=== PATIENT | female | born 1935 | race Caucasian/White ===

== ENCOUNTER 2016-06-28 15:29 | Inpatient (IN) | payer MEDICARE, MEDICAID ==
--- NOTE | 2016-06-28 16:04 | ED Physician Chart ---
Chief Complaint/HPI - Patient Information Date Seen:: 06/28/16 Time Seen:: 15:45 Chief Complaint:: redness lower legs History of Present Illness:: has had pustules on ankles and feet for one week. Lower legs became red yesterday. No chills or fever. Historian:: Patient, EMS Review:: Nurse's Note Reviewed Review of Systems - Review of Systems General/Constitutional: No fever, No chills Skin: Skin lesions Head: No headache Eyes: No loss of vision ENT: No earache Neck: No neck pain Cardio Vascular: No chest pain, No palpitations Pulmonary: No SOB GI: No nausea, No vomiting, No diarrhea Musculoskeletal: No bone or joint pain Endocrine: No polyuria, No polydipsia Psychiatric: Prior psych history Hematopoietic: No bruising Allergic/Immuno: No urticaria Neurological: No syncope Past Medical History - Past Medical History Past Medical History: Dyslipidemia, Other (hypercholesterolemia; alzheimer's disease; chest pain) Family History: Other (unavailable) Social History: Care Facility Surgical History: other (unavailable) Psychiatricy History: Dementia Medication: Reviewed Family Medical History - Family Member Mother History Unknown: Yes Labs/Radiology/EKG Results - Lab Results Comments:: Laboratory Results - last 24 hr 06/28/16 06/28/16 16:05 16:05 WBC 14.1 H RBC 4.48 Hgb 13.4 Hct 41.0 MCV 91.4 MCH 29.9 MCHC Differential 32.8 RDW 13.1 Plt Count 104 L MPV 8.1 Neutrophils % 81.9 H Lymphocytes % 11.3 L Monocytes % 5.9 Eosinophils % 0.9 Basophils % 0.0 Sodium 133 L Potassium 4.2 Chloride 103 Carbon Dioxide 21.2 Anion Gap 13.0 BUN 19 Creatinine 1.1 Est GFR ( Amer) TNP Est GFR (Non-Af Amer) TNP BUN/Creatinine Ratio 17.3 Glucose 137 H Calcium 10.0 Laboratory Results - last 24 hr 06/28/16 06/28/16 16:05 16:05 WBC 14.1 H RBC 4.48 Hgb 13.4 Hct 41.0 MCV 91.4 MCH 29.9 MCHC Differential 32.8 RDW 13.1 Plt Count 104 L MPV 8.1 Neutrophils % 81.9 H Lymphocytes % 11.3 L Monocytes % 5.9 Eosinophils % 0.9 Basophils % 0.0 Sodium 133 L Potassium 4.2 Chloride 103 Carbon Dioxide 21.2 Anion Gap 13.0 BUN 19 Creatinine 1.1 Est GFR ( Amer) TNP Est GFR (Non-Af Amer) TNP BUN/Creatinine Ratio 17.3 Glucose 137 H Calcium 10.0 ED Septic Shock - . Is Septic Shock (SBP<90, OR Lactate>4 mmol\L) present?: No Reassessment (Disposition) - Reassessment Reassessment Condition:: Unchanged - Diagnosis Diagnosis:: abscesses feet and ankles; cellulitis lower legs - Patient Disposition Admitted to:: Med/Surg Spoke to:: Sandoval Garza Admitting Medical Physician:: Sandoval Garza Condition at Disposition:: Stable, Unchanged
[2016-06-28 16:30] LABS: % EOSINOPHILS 0.9 % (0.0-5.0); % LYMPHOCYTES 11.3 % (20.0-50.0); % MONOCYTES 5.9 % (2.0-10.0); % NEUTROPHILS 81.9 % (40.0-80.0); HEMOGLOBIN 13.4 gm/dL (11.7-16.1); MEAN CELL VOLUME 91.4 fl (81-100); MEAN CORPUSCULAR HEMOGLOBIN 29.9 pg (27.0-31.0); MEAN CORPUSCULAR HGB CONC 32.8 pg (28.0-36.0); MEAN PLATELET VOLUME 8.1 fl; NEUTROPHILE ABSOLUTE 11.6 Th/cmm (1.8-8.0); PLATELET COUNT 104 Th/cmm (150-400); RED BLOOD COUNT 4.48 Mil/cmm (3.80-5.20); RED CELL DISTRIBUTION WIDTH 13.1 % (11.5-20.0); WHITE BLOOD COUNT 14.1 Th/cmm (4.8-10.8)
[2016-06-28] MEDS ORDERED: Sodium Chloride 0.9% 1,000 ML IV ONE (16:41)
[2016-06-28 16:44] LABS: BUN - UREA NITROGEN 19 mg/dL (7-25); BUN/CREATININE RATIO 17.3; CARBON DIOXIDE 21.2 mEq/L (21.0-31.0); CHLORIDE 103 mEq/L (98-107); CREATININE - SERUM 1.1 mg/dL (0.6-1.2); GLUCOSE 137 mg/dL (70-105); POTASSIUM SERUM 4.2 mEq/L (3.5-5.1); SODIUM SERUM 133 mEq/L (136-145)
[2016-06-28] MEDS ORDERED: Magnesium Hydroxide (MOM) 30 mL UDC PO PRN (23:14)
[2016-06-28] MEDS ORDERED: Guaifenesin DM 10 ML UDC PO PRN (23:14)
--- NOTE | 2016-06-28 23:36 | Admit Criteria Form ---
Admit Criteria Forms - Admit Criteria Diagnosis: CELLULITIS Clinical Indications for Admission to Inpatient Care (Place 'X' for any and all applicable criteria): Admission is indicated for ANY ONE of the following(1)(2)(3)(4)(5): [ ]I. Limb-threatening infection [ ]II. High-risk comorbid condition as indicated by ANY ONE of the following: [ ]a) Uncontrolled diabetes (eg, HbA1c greater than 10% (0.1)) [ ]b) Cirrhosis [ ]c) Neutropenia [ ]d) Asplenia [ ]e) Immunosuppression [ ]f) Symptomatic heart failure [ ]III. Failure of outpatient therapy as indicated by ALL of the following: [ ]a) Progression or no improvement after adequate trial (minimum of 48 hours, with longer period for stable lower extremity infection) [ ]b) Adequate antibiotic regimen as indicated by use of ANY ONE of the following: [ ]i) First-generation cephalosporin (e.g., cephalexin) [ ]ii) Antistaphylococcal penicillin (e.g., dicloxacillin) [ ]iii) Penicillin-allergic patient regimen (clindamycin, extended-spectrum fluoroquinolone, or doxycycline) [ ]iv) Resistant organism (eg, methicillin-resistant Staphylococcus aureus) regimen (6) [ ]c) Outpatient intravenous therapy regimen is not appropriate due to ANY ONE of the following. (7)(8)(9)(10): [ ]i) It was tried and was not successful (eg, progression of infection). [ ]ii) It is not available or cannot be arranged in a clinically appropriate time frame (e.g., the next day). [ ]iii) Clinical presentation (eg, acuity of infection, rapidity of progression, confirmed or suspected bacteremia) is judged to require ALL of the following: [ ]1) Immediate initiation of intravenous therapy ( eg, cannot wait for next day) [ ]2) Intensity of patient monitoring and observation (eg, vital sign measurement, checks for infection progression) that cannot be provided at other than inpatient level of care [ ]IV. Mental status changes [ ]V. Bacteremia [ ]. Hemodynamic instability [ ]VII. Suspected necrotizing soft tissue infection (e.g., gas in tissue)(11)( 12) [ ]VIII. Orbital infection (13)(14) [ ]IX. Associated surgical procedure (e.g., abscess drainage, debridement) not amenable to outpatient, emergency department, or observation care [ ]X. Cutaneous gangrene [ ]XI. High fever (temperature greater than 39.5 degrees C (103.1 degrees F) (oral)) not responsive to outpatient, emergency department, or observation care therapy [X]XIII. Inpatient admission required rather than observation care (Also use Cellulitis: Observation Care as appropriate) because of ANY ONE of the following : [ ]a) Periorbital or perineal infection that is severe or worsening [ ]b) Severe pain requiring acute inpatient management [ ]c) IV fluid to replace significant ongoing (e.g., for over 24 hours) losses (greater than 3L/m2 per day) [ ]d) Compartment syndrome monitoring (17) [ ]e) Strict or protective (eg, laminar flow) isolation [ ]f) Urgent debridement or skin grafting [ ]g) Bone or joint debridement [ ]h) Immediate inpatient surgery [X]i) Other condition, treatment or monitoring requiring inpatient admission Extended stay beyond goal length of stay may be needed for (1)(18): [ ]a) Necrotizing soft tissue infection or fasciitis [ ]b) Gram-negative infection [ ]c) Methicillin-resistant Staphylococcal aureus (MRSA) infection [ ]d) Peripheral venous insufficiency with cellulitis [ ]e) Extensive edema [ ]f) Sepsis or continued Hemodynamic instability [ ]g) Continued high fever or mental status change [ ]h) Bacteremia [ ]i) Active serious comorbid conditions ( eg, heart failure, renal insufficiency) The original [facility] content created by [facility] [employer] has been revised. The portions of the content which have been revised are identified through the use of italic text or in bold, and [facility] has neither reviewed nor approved the modified material. All other unmodified content is copyright [facility] Please see references footnoted in the original [facility] edition 2016 Admit Criteria Met?: Yes
[2016-06-28] MEDS: D5-0.45NS 1,000 ML IV SCH (23:40)
[2016-06-29 05:38] LABS: % BASOPHILS 0.4 % (0.0-2.0); % EOSINOPHILS 1.8 % (0.0-5.0); % LYMPHOCYTES 13.4 % (20.0-50.0); % MONOCYTES 8.5 % (2.0-10.0); % NEUTROPHILS 75.9 % (40.0-80.0); HEMOGLOBIN 12.2 gm/dL (11.7-16.1); MEAN CELL VOLUME 91.3 fl (81-100); MEAN CORPUSCULAR HEMOGLOBIN 30.9 pg (27.0-31.0); MEAN CORPUSCULAR HGB CONC 33.9 pg (28.0-36.0); MEAN PLATELET VOLUME 8.1 fl; NEUTROPHILE ABSOLUTE 7.5 Th/cmm (1.8-8.0); RED BLOOD COUNT 3.95 Mil/cmm (3.80-5.20); RED CELL DISTRIBUTION WIDTH 12.3 % (11.5-20.0)
[2016-06-29 05:52] LABS: ANION GAP 9.2 (7.0-16.0); BUN - UREA NITROGEN 12 mg/dL (7-25); CALCIUM SERUM 9.1 mg/dL (8.6-10.3); CARBON DIOXIDE 25.6 mEq/L (21.0-31.0); CHLORIDE 107 mEq/L (98-107); CREATININE - SERUM 0.8 mg/dL (0.6-1.2); GLUCOSE 149 mg/dL (70-105); POTASSIUM SERUM 3.8 mEq/L (3.5-5.1); SODIUM SERUM 138 mEq/L (136-145)
[2016-06-29 06:10] LABS: PLATELET COUNT 197 Th/cmm (150-400); WHITE BLOOD COUNT 9.8 Th/cmm (4.8-10.8)
--- NOTE | 2016-06-29 14:02 | Diagnostic Imaging Report ---
CHEST X-RAY: AP view INDICATION: Pneumonia COMPARISON: None FINDINGS: No focal consolidation or effusions. Cardiomegaly is noted with atherosclerosis. Degenerative changes of the spine are noted. IMPRESSION: No focal airspace consolidation identified Cardiomegaly and atherosclerotic vascular disease.
[2016-06-29] MEDS: Vancomycin HCl 1.5 GM in Sodium Chloride 0.9% 500 ML IV SCH (15:00)
[2016-06-29] MEDS: D5-0.45NS 1,000 ML IV SCH (15:01)
[2016-06-29] MEDS ORDERED: Influenza Vaccine 0.5 mL Syr IM ONE (15:08)
--- NOTE | 2016-06-29 16:46 | History & Physical ---
CHIEF COMPLAINT: Redness of the lower extremity. HISTORY OF PRESENT ILLNESS: The patient is an 80-year-old male with a past medical history of dyslipidemia, hypercholesterolemia, dementia, chest pain, brought in from nursing facility for multiple pustules as well as with redness of both lower extremities. Most pustules are located towards the ankle areas. Otherwise, the patient denies any fever or chills. The patient is a poor historian. PAST MEDICAL HISTORY: Includes hyperlipidemia, dyslipidemia, Alzheimer disease. FAMILY HISTORY: Noncontributory. SOCIAL HISTORY: Lives at care facility. No history of smoking, alcohol or drug use. PAST SURGICAL HISTORY: Not available. PSYCHIATRIC HISTORY: Dementia. MEDICATIONS: As per medication reconciliation sheet. Antibiotic aponte, the patient had received vancomycin 1 gram in the morning. The patient had received 1 g in the ER. ALLERGIES: THE PATIENT IS ALLERGIC TO PENICILLIN AND ASPIRIN. REVIEW OF SYSTEMS: GENERAL: The patient denies any fever or chills. HEENT: No diplopia, no photophobia, no sore throat. RESPIRATORY: No cough, no shortness of breath. CARDIOVASCULAR: No chest pain or palpitation. GASTROINTESTINAL: No nausea, no vomiting, no diarrhea, no constipation. GENITOURINARY: No dysuria. NEUROLOGIC: No headache, no dizziness, no focal weakness. Also, the patient is slow to respond. SKIN: The patient has multiple pustules in the lower extremities bilaterally, more on the ankle area with surrounding redness. PHYSICAL EXAMINATION: VITAL SIGNS: Shows temperature is 97.6 degree F, pulse 65, respirations 18, blood pressure 121/70. GENERAL: The patient is comfortable lying in the bed, not in acute distress. HEENT: Head is normocephalic, atraumatic. Oral cavity moist, pink tongue. Eyes: Pallor is present. No icterus. PERRLA, EOMI. NECK: Supple, no JVD, no carotid bruit. Trachea in midline. CHEST: Bilateral breath sounds. No crackles, wheezing. HEART: S1, S2 within normal limits. Regular rhythm. No murmur or gallop. ABDOMEN: Soft, nontender, nondistended. Bowel sounds present. EXTREMITIES: No cyanosis, no clubbing, no edema. The patient has multiple pustules on both lower extremities including foot, ankle and leg area. These had surrounding redness, worse on the ankle area. NEUROLOGIC: Alert, awake. LABORATORY DATA: Current lab shows WBC count is 9800, it was ____ yesterday, hemoglobin 12.2, hematocrit 36, platelets are 197,000, neutrophils 76%. Sodium is 138, potassium 3.8, chloride 107, bicarb is 25, BUN is 12, creatinine 0.8, and glucose is 149. IMPRESSION: 1. Bilateral leg cellulitis. 2. Leukocytosis, improved. 3. Pustules, most likely staph infection. 4. Hypertension. 5. Hyperlipidemia. RECOMMENDATIONS: We will continue vancomycin. We will get the wound culture. JOB# [id number] STONEY
[2016-06-29] MEDS ORDERED: VTE Chemical Prophylaxis Screen/Admission MC PRN (16:48)
[2016-06-29] MEDS: Atorvastatin Calcium 10 MG TAB PO SCH (21:07)
[2016-06-30] MEDS: Vancomycin HCl 1.5 GM in Sodium Chloride 0.9% 500 ML IV SCH (15:12)
[2016-06-30] MEDS: Atorvastatin Calcium 10 MG TAB PO SCH (21:36)
--- NOTE | 2016-06-30 23:19 | Infectious Disease Prog Note ---
Infectious Disease Subjective - Review of Systems Service Date: 06/30/16 Subjective: There is no new change. There is no fever. Infectious Disease Objective - Results Result Diagrams: 06/29/16 05:04 06/29/16 05:04 Recent Labs: Laboratory Last Values WBC 9.8 Th/cmm (4.8-10.8) D 06/29/16 05:04 RBC 3.95 Mil/cmm (3.80-5.20) 06/29/16 05:04 Hgb 12.2 gm/dL (11.7-16.1) 06/29/16 05:04 Hct 36.0 % (35.0-45.0) D 06/29/16 05:04 MCV 91.3 fl (81-100) 06/29/16 05:04 MCH 30.9 pg (27.0-31.0) 06/29/16 05:04 MCHC Differential 33.9 pg (28.0-36.0) 06/29/16 05:04 RDW 12.3 % (11.5-20.0) 06/29/16 05:04 Plt Count 197 Th/cmm (150-400) D 06/29/16 05:04 MPV 8.1 fl 06/29/16 05:04 Neutrophils % 75.9 % (40.0-80.0) 06/29/16 05:04 Lymphocytes % 13.4 % (20.0-50.0) L 06/29/16 05:04 Monocytes % 8.5 % (2.0-10.0) 06/29/16 05:04 Eosinophils % 1.8 % (0.0-5.0) 06/29/16 05:04 Basophils % 0.4 % (0.0-2.0) 06/29/16 05:04 Sodium 138 mEq/L (136-145) 06/29/16 05:04 Potassium 3.8 mEq/L (3.5-5.1) 06/29/16 05:04 Chloride 107 mEq/L (98-107) 06/29/16 05:04 Carbon Dioxide 25.6 mEq/L (21.0-31.0) 06/29/16 05:04 Anion Gap 9.2 (7.0-16.0) 06/29/16 05:04 BUN 12 mg/dL (7-25) 06/29/16 05:04 Creatinine 0.8 mg/dL (0.6-1.2) 06/29/16 05:04 Est GFR ( Amer) TNP 06/29/16 05:04 Est GFR (Non-Af Amer) TNP 06/29/16 05:04 BUN/Creatinine Ratio 15.0 06/29/16 05:04 Glucose 149 mg/dL (70-105) H 06/29/16 05:04 Calcium 9.1 mg/dL (8.6-10.3) 06/29/16 05:04 - Physical Exam Vitals and I&O: Vital Signs Temp 97.9 F 06/30/16 20:00 Pulse 77 06/30/16 21:35 Resp 18 06/30/16 20:00 BP 131/65 06/30/16 21:35 Pulse Ox 96 06/30/16 20:00 Intake & Output 06/30/16 06/30/16 07/01/16 06:59 18:59 06:59 Intake Total 120 600 Balance 120 600 Intake: Oral 120 600 Other: # Voids 2 2 Active Medications: Current Medications Acetaminophen (Tylenol) 650 mg PO Q4HR PRN PRN Reason: Pain (Mild) Stop: 08/27/16 23:13 Atorvastatin Calcium (Lipitor) 10 mg PO HS CHARISSA PRN Reason: Protocol Stop: 08/28/16 20:59 Last Admin: 06/30/16 21:36 Dose: 10 mg Docusate Sodium (Colace) 100 mg PO DAILY [facility]ISSA Stop: 08/28/16 08:59 Last Admin: 06/30/16 09:57 Dose: 100 mg Donepezil HCl (Aricept) 10 mg PO DAILY [facility] Stop: 08/28/16 08:59 Last Admin: 06/30/16 09:56 Dose: 10 mg Folic Acid (Folate) 1 mg PO DAILY [facility] Stop: 08/28/16 08:59 Last Admin: 06/30/16 09:57 Dose: 1 mg Guaifenesin/Dextromethorphan (Robitussin Dm) 10 ml PO Q6HR PRN PRN Reason: Cough Stop: 08/27/16 23:13 Heparin Sodium (Porcine) (Heparin) 5,000 units SUBQ Q12H [facility]ISSA Stop: 08/28/16 20:59 Last Admin: 06/30/16 21:12 Dose: 5,000 units Dextrose/Sodium Chloride (D5-0.45ns) 1,000 mls @ 75 mls/hr IV .[id number] [facility] Stop: 08/27/16 23:14 Last Admin: 06/29/16 15:01 Dose: 75 mls/hr Vancomycin HCl 1.5 gm/ Sodium (Chloride) 500 mls @ 250 mls/hr IV Q24H [facility] Stop: 08/28/16 14:59 Last Admin: 06/30/16 15:12 Dose: 250 mls/hr Isosorbide Dinitrate (Isordil) 5 mg PO TID [facility]IS[facility] Stop: 08/28/16 08:59 Last Admin: 06/30/16 21:35 Dose: 5 mg Magnesium Hydroxide (Milk Of Magnesia) 30 ml PO HS PRN PRN Reason: Constipation Stop: 08/27/16 23:13 Memantine (Namenda) 10 mg PO BID [facility] Stop: 08/28/16 08:59 Last Admin: 06/30/16 16:26 Dose: 10 mg Miscellaneous (Vancomycin Iv Per Pharmacy) 1 ea [facility] PRN [facility] Stop: 08/28/16 12:44 Miscellaneous (Vte Chemical Prophylaxis Screen/ Admission) 1 [facility] PRN PRN PRN Reason: PROTOCOL Stop: 08/28/16 16:47 Nitroglycerin (Nitrostat) 0.4 mg SL Q5MIN PRN PRN Reason: Chest Pain Stop: 08/27/16 23:13 Tramadol HCl (Ultram) 50 mg PO Q6HR PRN PRN Reason: Pain (Severe) Stop: 08/27/16 23:13 General: no acute distress, well developed, well nourished HEENT: atraumatic, normocephalic Neck: supple, thyromegaly, lymphadenopathy Cardiovascular: S1S2, regular Lungs: clear to auscultation bilaterally, clear to percussion Abdomen: soft, no tender Extremities: other (both lower leg and foot pustules. and cellulitis.), no cyanosis, no clubbing, no edema Neurological: awake, other (confusion) Infectious Disease Assmt/Plan - Assessment Assessment: cellulitis lower extremities with pustules, Staph aurues. Dementia. - Plan Plan: Will continue vanco IV. wound care. RPR, Vit B12, TSH. Psych consult.
[2016-07-01] MEDS ORDERED: Acetaminophen 500 MG TAB PO PRN (01:03)
[2016-07-01] MEDS: Vancomycin HCl 1.5 GM in Sodium Chloride 0.9% 500 ML IV SCH (15:35)
--- NOTE | 2016-07-01 18:15 | Infectious Disease Prog Note ---
Infectious Disease Subjective - Review of Systems Service Date: 07/01/16 Subjective: There is no new change. There is no fever. Infectious Disease Objective - Results Result Diagrams: 06/29/16 05:04 06/29/16 05:04 Recent Labs: Laboratory Last Values WBC 9.8 Th/cmm (4.8-10.8) D 06/29/16 05:04 RBC 3.95 Mil/cmm (3.80-5.20) 06/29/16 05:04 Hgb 12.2 gm/dL (11.7-16.1) 06/29/16 05:04 Hct 36.0 % (35.0-45.0) D 06/29/16 05:04 MCV 91.3 fl (81-100) 06/29/16 05:04 MCH 30.9 pg (27.0-31.0) 06/29/16 05:04 MCHC Differential 33.9 pg (28.0-36.0) 06/29/16 05:04 RDW 12.3 % (11.5-20.0) 06/29/16 05:04 Plt Count 197 Th/cmm (150-400) D 06/29/16 05:04 MPV 8.1 fl 06/29/16 05:04 Neutrophils % 75.9 % (40.0-80.0) 06/29/16 05:04 Lymphocytes % 13.4 % (20.0-50.0) L 06/29/16 05:04 Monocytes % 8.5 % (2.0-10.0) 06/29/16 05:04 Eosinophils % 1.8 % (0.0-5.0) 06/29/16 05:04 Basophils % 0.4 % (0.0-2.0) 06/29/16 05:04 Sodium 138 mEq/L (136-145) 06/29/16 05:04 Potassium 3.8 mEq/L (3.5-5.1) 06/29/16 05:04 Chloride 107 mEq/L (98-107) 06/29/16 05:04 Carbon Dioxide 25.6 mEq/L (21.0-31.0) 06/29/16 05:04 Anion Gap 9.2 (7.0-16.0) 06/29/16 05:04 BUN 12 mg/dL (7-25) 06/29/16 05:04 Creatinine 0.8 mg/dL (0.6-1.2) 06/29/16 05:04 Est GFR ( Amer) TNP 06/29/16 05:04 Est GFR (Non-Af Amer) TNP 06/29/16 05:04 BUN/Creatinine Ratio 15.0 06/29/16 05:04 Glucose 149 mg/dL (70-105) H 06/29/16 05:04 Calcium 9.1 mg/dL (8.6-10.3) 06/29/16 05:04 TSH 3.77 uIU/ml (0.34-5.60) 07/01/16 05:30 Vancomycin Trough 11.9 ug/mL (10-20) 07/01/16 13:54 RPR NONREACTIVE (NONREACTIVE) 07/01/16 05:30 - Physical Exam Vitals and I&O: Vital Signs Temp 98.0 F 07/01/16 16:00 Pulse 61 07/01/16 16:00 Resp 19 07/01/16 16:00 BP 135/55 07/01/16 16:00 Pulse Ox 99 07/01/16 16:00 Intake & Output 06/30/16 07/01/16 07/01/16 18:59 06:59 18:59 Intake Total 1100 1000 Balance 1100 1000 Intake: Intake, IV Amount 500 1000 D5-0.45NS 1,000 ml @ 75 1000 mls/hr IV .[id number] [facility] Rx #:[id number] Vancomycin HCl 1.5 gm In 500 Sodium Chloride 0.9% 500 ml @ 250 mls/hr IV Q24H [facility] Rx#:[id number] Oral 600 Other: # Voids 2 1 Active Medications: Current Medications Acetaminophen (Tylenol) 650 mg PO Q4HR PRN PRN Reason: Pain (Mild) Stop: 08/27/16 23:13 Acetaminophen (Tylenol Extra Strength) 1,000 mg PO Q4HR PRN PRN Reason: Pain (Moderate) Stop: 08/30/16 01:02 Atorvastatin Calcium (Lipitor) 10 mg PO HS [facility] PRN Reason: Protocol Stop: 08/28/16 20:59 Last Admin: 06/30/16 21:36 Dose: 10 mg Docusate Sodium (Colace) 100 mg PO DAILY [facility] Stop: 08/28/16 08:59 Last Admin: 07/01/16 08:15 Dose: 100 mg Donepezil HCl (Aricept) 10 mg PO DAILY [facility] Stop: 08/28/16 08:59 Last Admin: 07/01/16 08:15 Dose: 10 mg Folic Acid (Folate) 1 mg PO DAILY [facility] Stop: 08/28/16 08:59 Last Admin: 07/01/16 08:15 Dose: 1 mg Guaifenesin/Dextromethorphan (Robitussin Dm) 10 ml PO Q6HR PRN PRN Reason: Cough Stop: 08/27/16 23:13 Heparin Sodium (Porcine) (Heparin) 5,000 units SUBQ Q12H [facility] Stop: 08/28/16 20:59 Last Admin: 07/01/16 08:16 Dose: 5,000 units Dextrose/Sodium Chloride (D5-0.45ns) 1,000 mls @ 75 mls/hr IV .[id number] [facility] Stop: 08/27/16 23:14 Last Infusion: 07/01/16 01:35 Dose: Infused Vancomycin HCl 1.5 gm/ Sodium (Chloride) 500 mls @ 250 mls/hr IV Q24H [facility] Stop: 08/28/16 14:59 Last Admin: 07/01/16 15:35 Dose: 250 mls/hr Isosorbide Dinitrate (Isordil) 5 mg PO TID [facility] Stop: 08/28/16 08:59 Last Admin: 07/01/16 14:04 Dose: 5 mg Magnesium Hydroxide (Milk Of Magnesia) 30 ml PO HS PRN PRN Reason: Constipation Stop: 08/27/16 23:13 Memantine (Namenda) 10 mg PO BID [facility] Stop: 08/28/16 08:59 Last Admin: 07/01/16 16:12 Dose: 10 mg Miscellaneous (Vancomycin Iv Per Pharmacy) 1 ea [facility] PRN [facility] Stop: 08/28/16 12:44 Miscellaneous (Vte Chemical Prophylaxis Screen/ Admission) 1 ea [facility] PRN PRN PRN Reason: PROTOCOL Stop: 08/28/16 16:47 Nitroglycerin (Nitrostat) 0.4 mg SL Q5MIN PRN PRN Reason: Chest Pain Stop: 08/27/16 23:13 Tramadol HCl (Ultram) 50 mg PO Q6HR PRN PRN Reason: Pain (Severe) Stop: 08/27/16 23:13 General: no acute distress, well developed, well nourished HEENT: atraumatic, normocephalic, PERRLA, EOMI Neck: supple, no thyromegaly Cardiovascular: S1S2, regular Lungs: clear to auscultation bilaterally, clear to percussion Abdomen: soft, no tender, no distended Extremities: other (b/l lower extremity pustules.), no cyanosis, no clubbing, no edema Neurological: awake, alert, other (Confused.) Skin: intact Infectious Disease Assmt/Plan - Assessment Assessment: cellulitis lower extremities with pustules, Staph aurues. Dementia. - Plan Plan: Will continue vanco IV. wound care. RPR, Vit B12, TSH. Psych consult. DC planning op levaquin for 10 days.
[2016-07-01] MEDS: Atorvastatin Calcium 10 MG TAB PO SCH (21:40)
[2016-07-02] MEDS: D5-0.45NS 1,000 ML IV SCH (01:53)
[2016-07-02] MEDS: Vancomycin HCl 1.5 GM in Sodium Chloride 0.9% 500 ML IV SCH (16:29)
--- NOTE | 2016-07-02 20:56 | Progress Notes ---
SUBJECTIVE: The patient was seen in the bed lying down. The patient is a poor historian. No signs or symptoms of distress. OBJECTIVE: HEENT: Head is atraumatic, normocephalic. Eyes: Bilateral conjunctivae are clear for injections. NECK: Supple. No JVD. CARDIOVASCULAR: S1 and S2 heard without murmur. PULMONARY: Clear to auscultation. GASTROINTESTINAL: Soft and nontender without guarding. MUSCULOSKELETAL: No edema noted, but redness on both lower extremities, especially on the ankle side. ASSESSMENT: 1. Cellulitis of the bilateral lower extremities. 2. Dementia. 3. Hypertension. 4. Hyperlipidemia. 5. Osteoarthritis. PLAN: We will keep the patient here in the Med-Surg Floor. We will continue IV antibiotics per ID doctor. JOB# [id number]
--- NOTE | 2016-07-02 22:15 | Consultation ---
IDENTIFYING INFORMATION: The patient is an 80-year-old female. HISTORY OF PRESENT ILLNESS: The patient was admitted because of multiple sores. She is diabetic. The patient was a poor historian. She is confused. She was diagnosed with dementia. She apparently have infection, hyperlipidemia and pain. The patient was a very poor historian, but she was in good mood, was laughing. The nursing taking care of her, told me in the morning, she told does not feel like eating, but then she ate all her food. When asked about the date, her age, unable to tell, unable to give any information. The patient came from a nursing facility from ____. 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 PAST PSYCHIATRIC HISTORY: Dementia. No other information is available. MEDICAL HISTORY: Deferred to the medical doctor. The patient has ____, cellulitis of both of her legs. FAMILY AND SOCIAL HISTORY: Unobtainable, the patient lives in a nursing facility. MENTAL STATUS EXAMINATION: The patient is appropriately dressed, appropriately groomed. She was laughing. I am not sure why she was laughing. She speaks Greek and has a rn triage. The patient has been very confused, inappropriate, unable to test her memory. She has poor orientation and poor concentration. She denies any auditory or visual hallucinations. Denies any suicidal ideation or homicidal ideation, not causing any management problems. Her insight and judgment is impaired because of dementia. IMPRESSION: AXIS I: Dementia with probable delirium secondary to her medication conditions, cellulitis. MEDICAL DIAGNOSIS: Cellulitis and hyperlipidemia. PLAN: I would recommend continue the Aricept. If she is still having ____ problem, let me know. I am covering for Dr. Gaytan. Dr. Gaytan will follow up with her. Thank you very much for allowing me to participate in the care of this most interesting lady. [facility]# [id number]
--- NOTE | 2016-07-03 10:46 | Diagnostic Imaging Report ---
Bilateral lower extremity DVT study HISTORY: Pain, vascular disease COMPARISON: None Technique: Longitudinal and transverse sonographic images of the bilateral lower extremity veins were obtained with doppler analysis. FINDINGS: There is normal compressibility, augmentation and phasicity of the bilateral common femoral, superficial femoral, popliteal, and posterior tibial veins. No thrombus is visualized. IMPRESSION: No evidence of thrombus within the bilateral lower extremity veins.
--- NOTE | 2016-07-03 10:56 | Diagnostic Imaging Report ---
Bilateral lower extremity arterial Doppler study HISTORY: Peripheral vascular disease COMPARISON: None Technique: Longitudinal and transverse sonographic images of the bilateral lower extremity arteries were obtained with doppler analysis. FINDINGS: Exam of the right side demonstrates mild to moderate atherosclerotic vascular disease with biphasic waveforms extending from the right superficial femoral artery to the dorsalis pedis artery. Exam of the left side demonstrates mild to moderate atherosclerotic vascular disease with primarily biphasic waveforms from the left common femoral artery to the dorsalis pedis artery. No sonographic evidence of occlusion. The right ankle-brachial index is 1.08 The left ankle brachial index is 1.01 IMPRESSION: [id number] atherosclerotic vascular disease. No evidence of significant focal stenosis or sonographic evidence of occlusion.
--- NOTE | 2016-07-03 23:21 | Discharge Summary ---
CHIEF COMPLAINT: Redness of lower extremities. HISTORY OF PRESENT ILLNESS AND HOSPITAL COURSE: The patient is an 80-year-old female with past medical history of dyslipidemia, hypercholesterolemia, dementia and chest discomfort, admitted to the hospital on 06/28/2016 with lower extremity redness. Bilaterally, there were multiple pustules. The patient was started on vancomycin and culture of the pus grew MSSA, susceptible to Levaquin. Antibiotic was changed to Levaquin. As the patient was confused, so will get psychiatric evaluation. The patient was ultimately transferred to Geropsych Unit. Otherwise, the patient is stable on the discharge. DISCHARGE DIAGNOSES: 1. Bilateral lower leg cellulitis, pustules. 2. Confusion. 3. Dyslipidemia. 4. Hypertension. RECOMMENDATIONS: We will continue same treatment. DISCHARGE CONDITION: Stable. DISCHARGE DISPOSITION: Geropsych Unit. JOB# [id number] MTDD
== END 2016-07-02 18:20 | DRG 871 ==
LOC: ER 15:29 → MSI 18:19
PROVIDERS: ADMIT Internal Medicine Infectious Disease; ATTEND Internal Medicine Infectious Disease
DX: A41.9 Sepsis, unspecified organism (principal); G93.41 Metabolic encephalopathy; L02.611 Cutaneous abscess of right foot; G30.9 Alzheimer's disease, unspecified; L02.415 Cutaneous abscess of right lower limb; F02.80 Dementia in other diseases classified elsewhere, unspecified severity, without behavioral disturbance, psychotic disturbance, mood disturbance, and anxiety; L03.116 Cellulitis of left lower limb; L02.612 Cutaneous abscess of left foot; L03.115 Cellulitis of right lower limb; L02.416 Cutaneous abscess of left lower limb; B95.61 Methicillin susceptible Staphylococcus aureus infection as the cause of diseases classified elsewhere; I10 Essential (primary) hypertension; E78.5 Hyperlipidemia, unspecified; E78.00 Pure hypercholesterolemia, unspecified; M19.90 Unspecified osteoarthritis, unspecified site; Z88.0 Allergy status to penicillin; Z88.6 Allergy status to analgesic agent
CPT/HCPCS: 36415-UA; 71010-TC; 80048-TC; 80202-TC; 82607-90; 84443-TC; 85025-TC; 86592-TC; 87070-90; 93925-TC; 93970-TC-50; J1644; J3370; J7030; J7040; Z7610

== ENCOUNTER 2016-07-02 18:33 | Inpatient (IN) | payer MEDICARE, MEDICAID ==
[2016-07-02] MEDS ORDERED: Magnesium Hydroxide (MOM) 30 mL UDC PO PRN (19:56)
[2016-07-02] MEDS ORDERED: Maalox 30 mL Cup PO PRN (19:56)
[2016-07-02] MEDS ORDERED: Guaifenesin DM 10 ML UDC PO PRN (20:13)
[2016-07-02] MEDS: Atorvastatin Calcium 10 MG TAB PO SCH (21:36)
[2016-07-03 01:58] VITALS: BP 108/75
[2016-07-03] MEDS: Multivitamin Tab PO SCH (09:39)
--- NOTE | 2016-07-03 16:36 | Psychosocial Evaluation ---
IDENTIFYING INFORMATION: The patient is an 80-year-old female. CHIEF COMPLAINT: No answer. HISTORY OF PRESENT ILLNESS: The patient was transferred from medical floor as ordered. She has been very confused, demented. She has been easily agitated. She was unable to give any information and give information and then contradicted. Unable to make safe plan for self-care. She is a very poor historian. We spoke through a mattress inspector. PAST PSYCHIATRIC HISTORY: Dementia. MEDICAL HISTORY: The patient has hypercholesterolemia and cellulitis. The patient also have coronary artery disease and pain. MEDICATIONS: The patient is on tramadol. She is on Aricept 10 mg at bedtime and Namenda 10 mg twice a day. FAMILY AND SOCIAL HISTORY: Unobtainable. The patient is a very poor historian, unable to give information about her family and she came from [facility]. MENTAL STATUS EXAMINATION: The patient was appropriately dressed, not very well groomed. Her mood is depressed. Affect is constricted. Thoughts are concrete, does not make sense, very confused, unable to tell me the date, where she is, why she is here, unable to answer questions, acting agitated at times, unable to tell me the date, her age, where she is, why she is here. Her long and short term memory is poor. Her insight and judgment is impaired. IMPRESSION: AXIS I: Dementia with depression. MEDICAL DIAGNOSIS: Deferred to the medical doctor. Her assets, she is accepting treatment. Negative poor coping skills. INITIAL TREATMENT PLAN: The patient will be continued with her medication. I will be adding Remeron small dose to help with her anxiety, depression, agitation. We will do group therapy, milieu therapy, individual therapy. ESTIMATED LENGTH OF STAY: 3-7 days. DISCHARGE CRITERIA: Decreasing confusion, depression after discharge outpatient. JOB# [id number]
[2016-07-03] MEDS: Atorvastatin Calcium 10 MG TAB PO SCH (21:19)
[2016-07-04] MEDS: Multivitamin Tab PO SCH (09:17)
--- NOTE | 2016-07-04 11:18 | Infectious Disease Prog Note ---
Infectious Disease Subjective - Review of Systems Service Date: 07/04/16 Subjective: There is no new change, there is no fever. Infectious Disease Objective - Physical Exam Vitals and I&O: Vital Signs Temp 98.4 F 07/04/16 06:45 Pulse 60 07/04/16 09:19 Resp 20 07/04/16 11:02 BP 136/57 07/04/16 09:19 Pulse Ox 98 07/04/16 06:45 Intake & Output 07/03/16 07/04/16 07/04/16 18:59 06:59 18:59 Intake Total 1300 240 Balance 1300 240 Intake: Oral 1300 240 Other: # Voids 4 1 # Bowel Movements 1 0 Active Medications: Current Medications Acetaminophen (Tylenol) 650 mg PO Q4HR PRN PRN Reason: Pain Stop: 08/31/16 19:55 Al Hydrox/Mg Hydrox/Simethicone (Maalox) 30 ml PO Q4HR PRN PRN Reason: GI DISTRESS Stop: 08/31/16 19:55 Atorvastatin Calcium (Lipitor) 10 mg PO HS CHARISSA PRN Reason: Protocol Stop: 08/31/16 20:59 Last Admin: 07/03/16 21:19 Dose: 10 mg Docusate Sodium (Colace) 100 mg PO DAILY CHARISSA Stop: 09/01/16 08:59 Last Admin: 07/04/16 09:17 Dose: 100 mg Donepezil HCl (Aricept) 10 mg PO DAILY CHARISSA Stop: 09/01/16 08:59 Last Admin: 07/04/16 09:17 Dose: 10 mg Folic Acid (Folate) 1 mg PO DAILY CHARISSA Stop: 09/01/16 08:59 Last Admin: 07/04/16 09:17 Dose: 1 mg Guaifenesin/Dextromethorphan (Robitussin Dm) 10 ml PO Q6HR PRN PRN Reason: Cough Stop: 08/31/16 20:12 Isosorbide Dinitrate (Isordil) 5 mg PO TID CHARISSA Stop: 08/31/16 20:59 Last Admin: 07/04/16 09:19 Dose: 5 mg Levofloxacin (Levaquin) 250 mg PO DAILY CHARISSA Stop: 07/12/16 08:59 Last Admin: 07/04/16 09:17 Dose: 250 mg Lorazepam (Ativan) 0.5 mg PO Q4HR PRN; Protocol PRN Reason: Anxiety Stop: 08/01/16 19:55 Memantine (Namenda) 10 mg PO BID CHARISSA Stop: 09/01/16 08:59 Last Admin: 07/04/16 09:17 Dose: 10 mg Mirtazapine (Remeron) 7.5 mg PO HS CHARISSA PRN Reason: Protocol Stop: 09/01/16 20:59 Last Admin: 07/03/16 21:19 Dose: 7.5 mg Multivitamins/Vitamin C (Theragran) 1 tab PO DAILY CHARISSA Stop: 09/01/16 08:59 Last Admin: 07/04/16 09:17 Dose: 1 tab Nitroglycerin (Nitrostat) 0.4 mg SL Q5MIN PRN PRN Reason: Chest Pain Stop: 08/31/16 20:16 Tramadol HCl (Ultram) 50 mg PO Q6HR PRN PRN Reason: Severe Pain Stop: 08/31/16 20:17 Zolpidem Tartrate (Ambien) 5 mg PO HS PRN PRN Reason: Insomnia Stop: 08/31/16 19:55 General: no acute distress, well developed, well nourished HEENT: atraumatic, normocephalic, PERRLA, EOMI Neck: supple, no thyromegaly, no lymphadenopathy Cardiovascular: S1S2, regular, no irregular Lungs: clear to auscultation bilaterally, clear to percussion Abdomen: soft, no tender, no distended Extremities: no cyanosis, no clubbing, no edema Neurological: awake, alert, oriented, CN 2-12 intact Skin: intact Infectious Disease Assmt/Plan - Assessment Assessment: IMopression: Confusion. Cellulitis of legs improving, Dementia. - Plan Plan: CPM.
[2016-07-04] MEDS: Atorvastatin Calcium 10 MG TAB PO SCH (20:41)
--- NOTE | 2016-07-05 01:16 | Progress Notes ---
SUBJECTIVE: Chart reviewed and the patient interviewed. Also discussed the patient's condition with the staff and reviewed records and labs. The patient is still easily agitated and she is still confused. The patient also is still forgetful and has difficulty following any directions. She also is still in angry mood. She also is aggressive with the staff when they try to help her with her ADLs. Otherwise, the patient is compliant with taking her medications with no side effects of medications. ASSESSMENT: The patient is still psychotic and still can be dangerous to others. TREATMENT PLAN: Continue to monitor her behavior and her medications and her condition closely. Also, continue to work on her poor impulse control and adjusting psychotropic medications. JOB# [id number]
[2016-07-05] MEDS: Multivitamin Tab PO SCH (08:52)
--- NOTE | 2016-07-05 14:08 | History & Physical ---
HISTORY OF PRESENT ILLNESS: The patient was transferred from the medical floor. She was admitted from senior care facility through the ER with a chief complaint of cellulitis and then the patient was moved to Psych Unit due to severe dementia. The patient is unable to take care of herself and make any decision for herself. PAST MEDICAL HISTORY: Includes dementia, osteoarthritis, CAD, hyperlipidemia and cellulitis. FAMILY HISTORY: Unremarkable. SOCIAL HISTORY: Unremarkable. SURGICAL HISTORY: Unremarkable. PSYCHIATRIC HISTORY: The patient currently has dementia. REVIEW OF SYSTEMS: GENERAL: The patient appears symptomatic. HEENT: Head: No headache. Eyes: No eye pain. NECK: No neck pain. CARDIOVASCULAR: No chest pain, no palpitation. PULMONARY: No shortness of breath. GASTROINTESTINAL: No abdominal pain, no constipation, no diarrhea. GENITOURINARY: No dysuria. MUSCULOSKELETAL: Bilateral lower extremity redness with minimal edema, but no pitting. PHYSICAL EXAMINATION: GENERAL: The patient in no acute distress. HEENT: Head is atraumatic, normocephalic. Eyes: Bilateral pupils are equally round and reactive. Bilateral conjunctivae are clear from injections. NECK: Supple. No JVD. CARDIOVASCULAR: S1 and S2 heard without murmur. CHEST: Clear to auscultation. GASTROINTESTINAL: Soft and nontender. Positive bowel sounds. No guarding. GENITOURINARY: No CVA tenderness. MUSCULOSKELETAL: Bilateral lower extremity edema, but no pitting. Bilateral lower extremity weakness as well. NEUROLOGIC: The patient is demented and a poor historian. ASSESSMENT: 1. Dementia. 2. Depression. 3. Hyperlipidemia. 4. Cellulitis. 5. Coronary artery disease. 6. Osteoarthritis. 7. Insomnia. PLAN: We will keep the patient inpatient in the psych unit. We will follow up with a psychiatrist to manage the patient's behavior. Also, we will follow up with ID doctor to continue antibiotic management. [facility]# [id number]
[2016-07-05] MEDS: Atorvastatin Calcium 10 MG TAB PO SCH (20:48)
--- NOTE | 2016-07-06 04:45 | Progress Notes ---
SUBJECTIVE: Chart was reviewed and the patient interviewed. Also discussed the patient's condition with the staff and reviewed records and labs. The patient is still having episodes of anger and agitation and irritability. The patient also is still in angry mood and she is still actively responding to the stimuli. She also still has problems expressing herself and her feelings because of her confusion and her forgetfulness. ASSESSMENT: The patient is still psychotic and considered to be ____. TREATMENT PLAN: We will continue monitoring her behavior and her condition closely. Also, we will continue working on her mood swings and her agitation. Also, we will increase Remeron to ____ mg everyday and we will continue to follow up closely. [facility]# [id number]
[2016-07-06] MEDS: Multivitamin Tab PO SCH (08:08)
[2016-07-06] MEDS: Docusate Sodium 100 mg/10 mL UD PO SCH (08:08)
--- NOTE | 2016-07-06 09:13 | Progress Notes ---
SUBJECTIVE: Chart reviewed and the patient interviewed. Also discussed the patient's condition with the staff and reviewed records and labs. The patient is still severely agitated and is still in angry and in irritable mood. The patient also is still restless and she still has difficulty following directions. The patient also is still feeling irritable and angry at times. Otherwise, the patient is not interacting with others and she still needs lots of redirections. ASSESSMENT: The patient is still agitated and is still confused and psychotic. TREATMENT PLAN: We will continue monitoring her behavior and her condition closely. Also, continue to work on her poor impulse control. Remeron was increased yesterday to ____ mg every day with no side effects and we will continue same dose and continue to follow up. Also, encouraged the patient to get out of her isolation and interact more with others. JOB# [id number]
[2016-07-06] MEDS: Atorvastatin Calcium 10 MG TAB PO SCH (20:31)
--- NOTE | 2016-07-06 23:38 | Infectious Disease Prog Note ---
Infectious Disease Subjective - Review of Systems Service Date: 07/06/16 Subjective: There is no new change, there is no fever. Infectious Disease Objective - Physical Exam Vitals and I&O: Vital Signs Temp 97.6 F 07/06/16 14:00 Pulse 64 07/06/16 20:29 Resp 18 07/06/16 20:00 BP 128/67 07/06/16 20:29 Pulse Ox 96 07/06/16 14:00 Intake & Output 07/06/16 07/06/16 07/07/16 06:59 18:59 06:59 Intake Total 120 700 Balance 120 700 Weight (lbs) 80.649 kg Intake: Oral 120 700 Other: # Voids 3 3 # Bowel Movements 0 Active Medications: Current Medications Acetaminophen (Tylenol) 650 mg PO Q4HR PRN PRN Reason: Pain Stop: 08/31/16 19:55 Al Hydrox/Mg Hydrox/Simethicone (Maalox) 30 ml PO Q4HR PRN PRN Reason: GI DISTRESS Stop: 08/31/16 19:55 Atorvastatin Calcium (Lipitor) 10 mg PO HS CHARISSA PRN Reason: Protocol Stop: 08/31/16 20:59 Last Admin: 07/06/16 20:31 Dose: 10 mg Docusate Sodium (Colace) 100 mg PO DAILY CHARISSA Stop: 09/04/16 08:59 Last Admin: 07/06/16 08:08 Dose: 100 mg Donepezil HCl (Aricept) 10 mg PO DAILY CHARISSA Stop: 09/01/16 08:59 Last Admin: 07/06/16 08:10 Dose: 10 mg Folic Acid (Folate) 1 mg PO DAILY CHARISSA Stop: 09/01/16 08:59 Last Admin: 07/06/16 08:09 Dose: 1 mg Guaifenesin/Dextromethorphan (Robitussin Dm) 10 ml PO Q6HR PRN PRN Reason: Cough Stop: 08/31/16 20:12 Isosorbide Dinitrate (Isordil) 5 mg PO TID CHARISSA Stop: 08/31/16 20:59 Last Admin: 07/06/16 20:29 Dose: 5 mg Levofloxacin (Levaquin) 250 mg PO DAILY CHARISSA Stop: 07/12/16 08:59 Last Admin: 07/06/16 08:08 Dose: 250 mg Lorazepam (Ativan) 0.5 mg PO Q4HR PRN; Protocol PRN Reason: Anxiety Stop: 08/01/16 19:55 Memantine (Namenda) 10 mg PO BID CHARISSA Stop: 09/01/16 08:59 Last Admin: 07/06/16 16:22 Dose: 10 mg Mirtazapine (Remeron) 15 mg PO HS CHARISSA PRN Reason: Protocol Stop: 09/03/16 12:31 Last Admin: 07/06/16 20:31 Dose: 15 mg Multivitamins/Vitamin C (Theragran) 1 tab PO DAILY CHARISSA Stop: 09/01/16 08:59 Last Admin: 07/06/16 08:08 Dose: 1 tab Nitroglycerin (Nitrostat) 0.4 mg SL Q5MIN PRN PRN Reason: Chest Pain Stop: 08/31/16 20:16 Tramadol HCl (Ultram) 50 mg PO Q6HR PRN PRN Reason: Severe Pain Stop: 08/31/16 20:17 Zolpidem Tartrate (Ambien) 5 mg PO HS PRN PRN Reason: Insomnia Stop: 08/31/16 19:55 General: no acute distress, well developed, well nourished HEENT: atraumatic, normocephalic, PERRLA, EOMI Neck: supple, no thyromegaly, no lymphadenopathy Cardiovascular: S1S2, regular Lungs: clear to auscultation bilaterally, clear to percussion Abdomen: soft, no tender, no distended, no mass Extremities: other (redness better in legs), no cyanosis, no clubbing, no edema Neurological: awake, alert, oriented, CN 2-12 intact Skin: intact Infectious Disease Assmt/Plan - Assessment Assessment: IMopression: Confusion. Cellulitis of legs improving, Dementia. - Plan Plan: CPM. Nutritional Asmnt/Malnutr-PDOC - Dietary Evaluation Malnutrition Findings (Please click <Entered> for more info): Nutritional Asmnt/Malnutrition Start: 07/06/16 16: 49 Text: Status: Complete Freq: Document 07/06/16 16:49 GSUN (Rec: 07/06/16 17:06 [email or web address] [id number]) Nutritional Asmnt/Malnutrition Patient General Information Nutritional Screening Moderate Risk Screening Diagnosis Severe dementia Pertinent Medical Hx/Surgical Hx Dementia, osteoarthritis, CAD, hyperlipidemia, cellulitis Subjective Information 63 year old female from SNF. visit pt during meal time. Observed pt sitting upright in bed, self-feeding with great hands and utensils coordinations, no difficulties chewing/swallowing, teeth present. Pt was confused, did not answer any RD questions, smiled at RD several times then resumed eating. Avg PO intake 89% of meals x past 3 days, meeting nutritional needs. Current Diet Order/ Nutrition Support Mech chopped, ORTIZ, CCHO Pertinent Medications Maalox, Lipitor, Colace, Folate, Theragran Pertinent Labs No current labs Nutritional Hx/Data Height 1.47 m Height (Calculated Centimeters) 147.3 Current Weight (lbs) 80.649 kg Weight (Calculated Kilograms) 80.6 Weight (Calculated Grams) 40892.7 [place] Body Weight 95lb (-2.5lb per in) Weight Status Obese GI Symptoms Cultural/Ethnic/Latter-Day Belief Unknown. Usual diet at home Unknown. Skin Integrity/Comment: Andi 16. Skin intact, some abrasions and bruises Estimated Nutritional Goals BEE in Kcals: Adj wt of IBW Calories/Kcals/Kg AdjBW 115.7lb/52.6kg, 25- 30kcal/kg Kcals Calculated 1315-1578kcal Protein: Adj wt of IBW Protein g/kg/kg Protein Calculated 53g Fluid: ml 1315-1578ml (1ml/kcal) Nutritional Problem 1. Problem Problem Overweight/obseity related to Etiology imabalance of energy utilization, physical inactivity Signs/Symptoms: BMI 37.2, PO intake >100% estimated needs aeb Intervention/Recommendation Comments 1. Continue with current diet. Avg PO intake meeting nutritional needs. Expected Outcomes/Goals Expected Outcomes/Goals 1. PO intake continue to meet at least 75% of estimated nutritional needs.
[2016-07-07] MEDS: Docusate Sodium 100 mg/10 mL UD PO SCH (09:24)
[2016-07-07] MEDS: Multivitamin Tab PO SCH (09:24)
--- NOTE | 2016-07-07 20:09 | Progress Notes ---
SUBJECTIVE: The patient seen, chart reviewed, discussed with staff. The patient is currently in the hospital, confused, demented, here due to agitation, poor self-care, resistant to care. On [id number], the patient is alert and oriented to name only, confused. She does not know where she is. She does not know why she is here. She does not know the year, the month and the date. Still concerns about her agitation, still disorganized, concerns about safety, concerns about any lashing out behaviors. Dr. Gaytan has been seeing the patient daily, making appropriate medication adjustments. She is still noted to be angry, irritable. ASSESSMENT: The patient remains agitated, angry, irritable, confused, disoriented. PLAN: Continue to monitor, continue to adjust medications, work on coping and impulse control. JOB# [id number]
[2016-07-07] MEDS: Atorvastatin Calcium 10 MG TAB PO SCH (20:51)
--- NOTE | 2016-07-07 23:22 | Infectious Disease Prog Note ---
Infectious Disease Subjective - Review of Systems Service Date: 07/07/16 Subjective: There is no new change, there is no fever. Infectious Disease Objective - Physical Exam Vitals and I&O: Vital Signs Temp 97.8 F 07/07/16 14:00 Pulse 66 07/07/16 20:52 Resp 18 07/07/16 20:00 BP 131/65 07/07/16 20:52 Pulse Ox 96 07/07/16 14:00 Intake & Output 07/07/16 07/07/16 07/08/16 06:59 18:59 06:59 Intake Total 700 Balance 700 Intake: Oral 700 Other: # Voids 3 # Bowel Movements 1 Active Medications: Current Medications Acetaminophen (Tylenol) 650 mg PO Q4HR PRN PRN Reason: Pain Stop: 08/31/16 19:55 Al Hydrox/Mg Hydrox/Simethicone (Maalox) 30 ml PO Q4HR PRN PRN Reason: GI DISTRESS Stop: 08/31/16 19:55 Atorvastatin Calcium (Lipitor) 10 mg PO HS CHARISSA PRN Reason: Protocol Stop: 08/31/16 20:59 Last Admin: 07/07/16 20:51 Dose: 10 mg Docusate Sodium (Colace) 100 mg PO DAILY CHARISSA Stop: 09/04/16 08:59 Last Admin: 07/07/16 09:24 Dose: 100 mg Donepezil HCl (Aricept) 10 mg PO DAILY CHARISSA Stop: 09/01/16 08:59 Last Admin: 07/07/16 09:24 Dose: 10 mg Folic Acid (Folate) 1 mg PO DAILY CHARISSA Stop: 09/01/16 08:59 Last Admin: 07/07/16 09:24 Dose: 1 mg Guaifenesin/Dextromethorphan (Robitussin Dm) 10 ml PO Q6HR PRN PRN Reason: Cough Stop: 08/31/16 20:12 Isosorbide Dinitrate (Isordil) 5 mg PO TID CHARISSA Stop: 08/31/16 20:59 Last Admin: 07/07/16 20:52 Dose: 5 mg Levofloxacin (Levaquin) 250 mg PO DAILY CHARISSA Stop: 07/12/16 08:59 Last Admin: 07/07/16 09:24 Dose: 250 mg Lorazepam (Ativan) 0.5 mg PO Q4HR PRN; Protocol PRN Reason: Anxiety Stop: 08/01/16 19:55 Memantine (Namenda) 10 mg PO BID CHARISSA Stop: 09/01/16 08:59 Last Admin: 07/07/16 17:01 Dose: 10 mg Mirtazapine (Remeron) 15 mg PO HS CHARISSA PRN Reason: Protocol Stop: 09/03/16 12:31 Last Admin: 07/07/16 20:51 Dose: 15 mg Multivitamins/Vitamin C (Theragran) 1 tab PO DAILY CHARISSA Stop: 09/01/16 08:59 Last Admin: 07/07/16 09:24 Dose: 1 tab Nitroglycerin (Nitrostat) 0.4 mg SL Q5MIN PRN PRN Reason: Chest Pain Stop: 08/31/16 20:16 Tramadol HCl (Ultram) 50 mg PO Q6HR PRN PRN Reason: Severe Pain Stop: 08/31/16 20:17 Zolpidem Tartrate (Ambien) 5 mg PO HS PRN PRN Reason: Insomnia Stop: 08/31/16 19:55 General: no acute distress, well developed, well nourished HEENT: atraumatic, PERRLA Neck: supple Cardiovascular: S1S2, regular Lungs: clear to auscultation bilaterally, clear to percussion Abdomen: soft, no tender, no distended Extremities: no cyanosis, no clubbing, no edema Neurological: awake, alert, oriented, CN 2-12 intact Skin: intact Infectious Disease Assmt/Plan - Assessment Assessment: IMopression: Confusion. Cellulitis of legs improving, Dementia. - Plan Plan: CPM. Nutritional Asmnt/Malnutr-PDOC - Dietary Evaluation Malnutrition Findings (Please click <Entered> for more info): Nutritional Asmnt/Malnutrition Start: 07/06/16 16: 49 Text: Status: Complete Freq: Document 07/06/16 16:49 GSUN (Rec: 07/06/16 17:06 [email or web address]) Nutritional Asmnt/Malnutrition Patient General Information Nutritional Screening Moderate Risk Screening Diagnosis Severe dementia Pertinent Medical Hx/Surgical Hx Dementia, osteoarthritis, CAD, hyperlipidemia, cellulitis Subjective Information 63 year old female from SNF. visit pt during meal time. Observed pt sitting upright in bed, self-feeding with great hands and utensils coordinations, no difficulties chewing/swallowing, teeth present. Pt was confused, did not answer any RD questions, smiled at RD several times then resumed eating. Avg PO intake 89% of meals x past 3 days, meeting nutritional needs. Current Diet Order/ Nutrition Support [facility] chopped, ORTIZ, CCHO Pertinent Medications Maalox, Lipitor, Colace, Folate, Theragran Pertinent Labs No current labs Nutritional Hx/Data Height 1.47 m Height (Calculated Centimeters) 147.3 Current Weight (lbs) 80.649 kg Weight (Calculated Kilograms) 80.6 Weight (Calculated Grams) 99683.7 [place] Body Weight 95lb (-2.5lb per in) Weight Status Obese GI Symptoms Cultural/Ethnic/Yarsanism Belief Unknown. Usual diet at home Unknown. Skin Integrity/Comment: Andi 16. Skin intact, some abrasions and bruises Estimated Nutritional Goals BEE in Kcals: Adj wt of IBW Calories/Kcals/Kg AdjBW 115.7lb/52.6kg, 25- 30kcal/kg Kcals Calculated 1315-1578kcal Protein: Adj wt of IBW Protein g/kg/kg Protein Calculated 53g Fluid: ml 1315-1578ml (1ml/kcal) Nutritional Problem 1. Problem Problem Overweight/obseity related to Etiology imabalance of energy utilization, physical inactivity Signs/Symptoms: BMI 37.2, PO intake >100% estimated needs aeb Intervention/Recommendation Comments 1. Continue with current diet. Avg PO intake meeting nutritional needs. Expected Outcomes/Goals Expected Outcomes/Goals 1. PO intake continue to meet at least 75% of estimated nutritional needs.
[2016-07-08] MEDS: Docusate Sodium 100 mg/10 mL UD PO SCH (08:40)
[2016-07-08] MEDS: Multivitamin Tab PO SCH (08:41)
--- NOTE | 2016-07-08 11:38 | General Progress Note ---
Objective - Physical Exam Vitals and I&O: Vital Signs Temp 97.8 F 07/07/16 14:00 Pulse 87 07/08/16 08:40 Resp 18 07/07/16 20:00 BP 135/72 07/08/16 08:40 Pulse Ox 96 07/07/16 14:00 Intake & Output 07/07/16 07/08/16 07/08/16 18:59 06:59 18:59 Intake Total 700 Balance 700 Intake: Oral 700 Other: # Voids 3 # Bowel Movements 1 Active Medications: Current Medications Acetaminophen (Tylenol) 650 mg PO Q4HR PRN PRN Reason: Pain Stop: 08/31/16 19:55 Al Hydrox/Mg Hydrox/Simethicone (Maalox) 30 ml PO Q4HR PRN PRN Reason: GI DISTRESS Stop: 08/31/16 19:55 Atorvastatin Calcium (Lipitor) 10 mg PO HS CHARISSA PRN Reason: Protocol Stop: 08/31/16 20:59 Last Admin: 07/07/16 20:51 Dose: 10 mg Docusate Sodium (Colace) 100 mg PO DAILY CHARISSA Stop: 09/04/16 08:59 Last Admin: 07/08/16 08:40 Dose: 100 mg Donepezil HCl (Aricept) 10 mg PO DAILY [facility]ISSA Stop: 09/01/16 08:59 Last Admin: 07/08/16 08:41 Dose: 10 mg Folic Acid (Folate) 1 mg PO DAILY [facility]ISSA Stop: 09/01/16 08:59 Last Admin: 07/08/16 08:41 Dose: 1 mg Guaifenesin/Dextromethorphan (Robitussin Dm) 10 ml PO Q6HR PRN PRN Reason: Cough Stop: 08/31/16 20:12 Isosorbide Dinitrate (Isordil) 5 mg PO TID CHARISSA Stop: 08/31/16 20:59 Last Admin: 07/08/16 08:40 Dose: 5 mg Levofloxacin (Levaquin) 250 mg PO DAILY CHARISSA Stop: 07/12/16 08:59 Last Admin: 07/08/16 08:41 Dose: 250 mg Lorazepam (Ativan) 0.5 mg PO Q4HR PRN; Protocol PRN Reason: Anxiety Stop: 08/01/16 19:55 Memantine (Namenda) 10 mg PO BID [facility] Stop: 09/01/16 08:59 Last Admin: 07/08/16 08:41 Dose: 10 mg Mirtazapine (Remeron) 15 mg PO HS CHARISSA PRN Reason: Protocol Stop: 09/03/16 12:31 Last Admin: 07/07/16 20:51 Dose: 15 mg Multivitamins/Vitamin C (Theragran) 1 tab PO DAILY CHARISSA Stop: 09/01/16 08:59 Last Admin: 07/08/16 08:41 Dose: 1 tab Nitroglycerin (Nitrostat) 0.4 mg SL Q5MIN PRN PRN Reason: Chest Pain Stop: 08/31/16 20:16 Tramadol HCl (Ultram) 50 mg PO Q6HR PRN PRN Reason: Severe Pain Stop: 08/31/16 20:17 Zolpidem Tartrate (Ambien) 5 mg PO HS PRN PRN Reason: Insomnia Stop: 08/31/16 19:55 Nutritional Asmnt/Malnutr-PDOC - Dietary Evaluation Malnutrition Findings (Please click <Entered> for more info): Nutritional Asmnt/Malnutrition Start: 07/06/16 16: 49 Text: Status: Complete Freq: Document 07/06/16 16:49 GSUN (Rec: 07/06/16 17:06 GSUN [email or web address]) Nutritional Asmnt/Malnutrition Patient General Information Nutritional Screening Moderate Risk Screening Diagnosis Severe dementia Pertinent Medical Hx/Surgical Hx Dementia, osteoarthritis, CAD, hyperlipidemia, cellulitis Subjective Information 63 year old female from SNF. visit pt during meal time. Observed pt sitting upright in bed, self-feeding with great hands and utensils coordinations, no difficulties chewing/swallowing, teeth present. Pt was confused, did not answer any RD questions, smiled at RD several times then resumed eating. Avg PO intake 89% of meals x past 3 days, meeting nutritional needs. Current Diet Order/ Nutrition Support Mech chopped, ORTIZ, CCHO Pertinent Medications Maalox, Lipitor, Colace, Folate, Theragran Pertinent Labs No current labs Nutritional Hx/Data Height 1.47 m Height (Calculated Centimeters) 147.3 Current Weight (lbs) 80.649 kg Weight (Calculated Kilograms) 80.6 Weight (Calculated Grams) 85851.7 [place] Body Weight 95lb (-2.5lb per in) Weight Status Obese GI Symptoms Cultural/Ethnic/Orthodoxy Belief Unknown. Usual diet at home Unknown. Skin Integrity/Comment: Andi 16. Skin intact, some abrasions and bruises Estimated Nutritional Goals BEE in Kcals: Adj wt of IBW Calories/Kcals/Kg AdjBW 115.7lb/52.6kg, 25- 30kcal/kg Kcals Calculated 1315-1578kcal Protein: Adj wt of IBW Protein g/kg/kg Protein Calculated 53g Fluid: ml 1315-1578ml (1ml/kcal) Nutritional Problem 1. Problem Problem Overweight/obseity related to Etiology imabalance of energy utilization, physical inactivity Signs/Symptoms: BMI 37.2, PO intake >100% estimated needs aeb Intervention/Recommendation Comments 1. Continue with current diet. Avg PO intake meeting nutritional needs. Expected Outcomes/Goals Expected Outcomes/Goals 1. PO intake continue to meet at least 75% of estimated nutritional needs.
--- NOTE | 2016-07-08 18:39 | Progress Notes ---
SUBJECTIVE: The patient seen, chart reviewed, discussed with staff. The patient remains very confused, demented, still agitated, persistent to care at times. On [id number], the patient poorly oriented to name only, not answering any questions appropriately. Still yells, still with some lashing out behaviors. Medication adjustments have been made over the past week. The patient seems to be tolerating well. No overt side effects. Eating with prompting and ADLs with prompting. ASSESSMENT: The patient remains angry, irritable, disoriented, not safe for a lower level of care. PLAN: Continue to monitor. Continue to adjust medications. The patient remains pretty isolative, encourage increased socialization as well. [facility]# [id number]
[2016-07-08] MEDS: Atorvastatin Calcium 10 MG TAB PO SCH (20:23)
--- NOTE | 2016-07-09 08:44 | General Progress Note ---
Subjective - Review of Systems Subjective: no changes Objective - Physical Exam Vitals and I&O: Vital Signs Temp 98 F 07/09/16 06:52 Pulse 56 07/09/16 06:52 Resp 18 07/09/16 06:52 BP 148/71 07/09/16 06:52 Pulse Ox 96 07/09/16 06:52 Intake & Output 07/08/16 07/09/16 07/09/16 18:59 06:59 18:59 Intake Total 800 240 Output Total 1 Balance 800 239 Intake: Oral 800 240 Output: Stool 1 Other: # Voids 3 3 # Bowel Movements 1 0 Active Medications: Current Medications Acetaminophen (Tylenol) 650 mg PO Q4HR PRN PRN Reason: Pain Stop: 08/31/16 19:55 Al Hydrox/Mg Hydrox/Simethicone (Maalox) 30 ml PO Q4HR PRN PRN Reason: GI DISTRESS Stop: 08/31/16 19:55 Atorvastatin Calcium (Lipitor) 10 mg PO HS CHARISSA PRN Reason: Protocol Stop: 08/31/16 20:59 Last Admin: 07/08/16 20:23 Dose: 10 mg Docusate Sodium (Colace) 100 mg PO DAILY [facility] Stop: 09/04/16 08:59 Last Admin: 07/08/16 08:40 Dose: 100 mg Donepezil HCl (Aricept) 10 mg PO DAILY [facility]ISSA Stop: 09/01/16 08:59 Last Admin: 07/08/16 08:41 Dose: 10 mg Folic Acid (Folate) 1 mg PO DAILY [facility]IS[facility] Stop: 09/01/16 08:59 Last Admin: 07/08/16 08:41 Dose: 1 mg Guaifenesin/Dextromethorphan (Robitussin Dm) 10 ml PO Q6HR PRN PRN Reason: Cough Stop: 08/31/16 20:12 Isosorbide Dinitrate (Isordil) 5 mg PO TID [facility] Stop: 08/31/16 20:59 Last Admin: 07/08/16 20:23 Dose: 5 mg Levofloxacin (Levaquin) 250 mg PO DAILY CHARISSA Stop: 07/12/16 08:59 Last Admin: 07/08/16 08:41 Dose: 250 mg Lorazepam (Ativan) 0.5 mg PO Q4HR PRN; Protocol PRN Reason: Anxiety Stop: 08/01/16 19:55 Memantine (Namenda) 10 mg PO BID [facility]ISSA Stop: 09/01/16 08:59 Last Admin: 07/08/16 17:00 Dose: 10 mg Mirtazapine (Remeron) 15 mg PO HS CHARISSA PRN Reason: Protocol Stop: 09/03/16 12:31 Last Admin: 07/08/16 20:23 Dose: 15 mg Multivitamins/Vitamin C (Theragran) 1 tab PO DAILY [facility] Stop: 09/01/16 08:59 Last Admin: 07/08/16 08:41 Dose: 1 tab Nitroglycerin (Nitrostat) 0.4 mg SL Q5MIN PRN PRN Reason: Chest Pain Stop: 08/31/16 20:16 Tramadol HCl (Ultram) 50 mg PO Q6HR PRN PRN Reason: Severe Pain Stop: 08/31/16 20:17 Zolpidem Tartrate (Ambien) 5 mg PO HS PRN PRN Reason: Insomnia Stop: 08/31/16 19:55 General: No acute distress HEENT: Atraumatic, PERRLA Neck: Supple Cardiovascular: Regular rate Lungs: Clear to auscultation Abdomen: Bowel sounds Assessment/Plan - Problem List Patient Problems: All Active Problems cellulitis of legs improving (Acute) confusion (Acute) dementia (Acute) Nutritional Asmnt/Malnutr-PDOC - Dietary Evaluation Malnutrition Findings (Please click <Entered> for more info): Nutritional Asmnt/Malnutrition Start: 07/06/16 16: 49 Text: Status: Complete Freq: Document 07/06/16 16:49 GSUN (Rec: 07/06/16 17:06 [email or web address]) Nutritional Asmnt/Malnutrition Patient General Information Nutritional Screening Moderate Risk Screening Diagnosis Severe dementia Pertinent Medical Hx/Surgical Hx Dementia, osteoarthritis, CAD, hyperlipidemia, cellulitis Subjective Information 63 year old female from SNF. visit pt during meal time. Observed pt sitting upright in bed, self-feeding with great hands and utensils coordinations, no difficulties chewing/swallowing, teeth present. Pt was confused, did not answer any RD questions, smiled at RD several times then resumed eating. Avg PO intake 89% of meals x past 3 days, meeting nutritional needs. Current Diet Order/ Nutrition Support Mech chopped, ORTIZ, CCHO Pertinent Medications Maalox, Lipitor, Colace, Folate, Theragran Pertinent Labs No current labs Nutritional Hx/Data Height 1.47 m Height (Calculated Centimeters) 147.3 Current Weight (lbs) 80.649 kg Weight (Calculated Kilograms) 80.6 Weight (Calculated Grams) 57563.7 [place] Body Weight 95lb (-2.5lb per in) Weight Status Obese GI Symptoms Cultural/Ethnic/Hindu Belief Unknown. Usual diet at home Unknown. Skin Integrity/Comment: Andi [place]. Skin intact, some abrasions and bruises Estimated Nutritional Goals BEE in Kcals: Adj wt of IBW Calories/Kcals/Kg AdjBW 115.7lb/52.6kg, 25- 30kcal/kg Kcals Calculated 1315-1578kcal Protein: Adj wt of IBW Protein g/kg/kg Protein Calculated 53g Fluid: ml 1315-1578ml (1ml/kcal) Nutritional Problem 1. Problem Problem Overweight/obseity related to Etiology imabalance of energy utilization, physical inactivity Signs/Symptoms: BMI 37.2, PO intake >100% estimated needs aeb Intervention/Recommendation Comments 1. Continue with current diet. Avg PO intake meeting nutritional needs. Expected Outcomes/Goals Expected Outcomes/Goals 1. PO intake continue to meet at least 75% of estimated nutritional needs.
[2016-07-09] MEDS: Docusate Sodium 100 mg/10 mL UD PO SCH (09:11)
[2016-07-09] MEDS: Multivitamin Tab PO SCH (09:13)
[2016-07-09] MEDS: Atorvastatin Calcium 10 MG TAB PO SCH (21:20)
--- NOTE | 2016-07-09 22:51 | Progress Notes ---
SUBJECTIVE: Chart reviewed and the patient interviewed. Also discussed the patient's condition with the staff and reviewed records and labs. The patient is still confused and she is still suspicious and paranoid. The patient also still needs lots of redirections. The patient also still has episodes of agitation, anger and irritability with severe mood swings. The patient on the other hand is compliant with taking her medications with no side effects of medications. ASSESSMENT: The patient is still confused and considered to be gravely disabled. TREATMENT PLAN: We will continue monitoring her behavior and her condition closely. Also, continue adjusting psychotropic medications and we will continue to follow up. [facility]# [id number]
--- NOTE | 2016-07-10 06:23 | Progress Notes ---
SUBJECTIVE: The patient was seen in her bed in her room. The patient is awake and alert and oriented to name only and the patient still has episodes of outburst behavior. The patient is confused and dementia. OBJECTIVE: HEENT: Head is atraumatic and normocephalic. Eyes: Bilateral pupils equally round and reactive to light and accommodation. NECK: Supple. No JVD. CARDIOVASCULAR: S1 and S2 heard without murmur. PULMONARY: Clear to auscultation. GASTROINTESTINAL: Positive bowel sounds, soft, nontender without guarding. MUSCULOSKELETAL: No edema noted and no more redness noted. ASSESSMENT: 1. Dementia. 2. Depression. 3. Hyperlipidemia. 4. Cellulitis, treated. 5. Coronary artery disease. 6. Osteoarthritis. 7. Insomnia. PLAN: We will continue to monitor the patient's behavior. We will keep the patient here in [facility] Unit. We will follow up per psych doctor. JOB# [id number]
[2016-07-10] MEDS: Multivitamin Tab PO SCH (08:45)
[2016-07-10] MEDS: Docusate Sodium 100 mg/10 mL UD PO SCH (08:45)
--- NOTE | 2016-07-10 13:20 | General Progress Note ---
Subjective - Review of Systems Service Date: 07/10/16 Subjective: no changes Objective - Physical Exam Vitals and I&O: Vital Signs Temp 97.6 F 07/10/16 06:22 Pulse 70 07/10/16 08:45 Resp 19 07/10/16 10:45 BP 123/75 07/10/16 08:45 Pulse Ox 98 07/10/16 06:22 Intake & Output 07/09/16 07/10/16 07/10/16 18:59 06:59 18:59 Intake Total 1800 120 Balance 1800 120 Intake: Oral 1800 120 Other: # Voids 4 3 # Bowel Movements 1 Active Medications: Current Medications Acetaminophen (Tylenol) 650 mg PO Q4HR PRN PRN Reason: Pain Stop: 08/31/16 19:55 Al Hydrox/Mg Hydrox/Simethicone (Maalox) 30 ml PO Q4HR PRN PRN Reason: GI DISTRESS Stop: 08/31/16 19:55 Atorvastatin Calcium (Lipitor) 10 mg PO HS CHARISSA PRN Reason: Protocol Stop: 08/31/16 20:59 Last Admin: 07/09/16 21:20 Dose: 10 mg Docusate Sodium (Colace) 100 mg PO DAILY [facility] Stop: 09/04/16 08:59 Last Admin: 07/10/16 08:45 Dose: 100 mg Donepezil HCl (Aricept) 10 mg PO DAILY [facility]SA Stop: 09/01/16 08:59 Last Admin: 07/10/16 08:47 Dose: 10 mg Folic Acid (Folate) 1 mg PO DAILY [facility] Stop: 09/01/16 08:59 Last Admin: 07/10/16 08:47 Dose: 1 mg Guaifenesin/Dextromethorphan (Robitussin Dm) 10 ml PO Q6HR PRN PRN Reason: Cough Stop: 08/31/16 20:12 Isosorbide Dinitrate (Isordil) 5 mg PO TID [facility] Stop: 08/31/16 20:59 Last Admin: 07/10/16 08:45 Dose: 5 mg Levofloxacin (Levaquin) 250 mg PO DAILY [facility] Stop: 07/12/16 08:59 Last Admin: 07/10/16 08:45 Dose: 250 mg Memantine (Namenda) 10 mg PO BID [facility] Stop: 09/01/16 08:59 Last Admin: 07/10/16 08:45 Dose: 10 mg Mirtazapine (Remeron) 22.5 mg PO HS CHARISSA PRN Reason: Protocol Stop: 09/03/16 12:31 Multivitamins/Vitamin C (Theragran) 1 tab PO DAILY [facility]IS[facility] Stop: 09/01/16 08:59 Last Admin: 07/10/16 08:45 Dose: 1 tab Nitroglycerin (Nitrostat) 0.4 mg SL Q5MIN PRN PRN Reason: Chest Pain Stop: 08/31/16 20:16 General: No acute distress Neck: Supple, JVD, Thyromegaly Cardiovascular: Regular rate Lungs: Clear to auscultation Abdomen: Bowel sounds Assessment/Plan - Problem List Patient Problems: All Active Problems cellulitis of legs improving (Acute) confusion (Acute) dementia (Acute) - Plan Plan: monitor vitals/diet f/up consultants Nutritional Asmnt/Malnutr-PDOC - Dietary Evaluation Malnutrition Findings (Please click <Entered> for more info): Nutritional Asmnt/Malnutrition Start: 07/06/16 16: 49 Text: Status: Complete Freq: Document 07/06/16 16:49 GSUN (Rec: 07/06/16 17:06 GSUN [email or web address]) Nutritional Asmnt/Malnutrition Patient General Information Nutritional Screening Moderate Risk Screening Diagnosis Severe dementia Pertinent Medical Hx/Surgical Hx Dementia, osteoarthritis, CAD, hyperlipidemia, cellulitis Subjective Information 63 year old female from SNF. visit pt during meal time. Observed pt sitting upright in bed, self-feeding with great hands and utensils coordinations, no difficulties chewing/swallowing, teeth present. Pt was confused, did not answer any RD questions, smiled at RD several times then resumed eating. Avg PO intake 89% of meals x past 3 days, meeting nutritional needs. Current Diet Order/ Nutrition Support Mech chopped, ORTIZ, CCHO Pertinent Medications Maalox, Lipitor, Colace, Folate, Theragran Pertinent Labs No current labs Nutritional Hx/Data Height 1.47 m Height (Calculated Centimeters) 147.3 Current Weight (lbs) 80.649 kg Weight (Calculated Kilograms) 80.6 Weight (Calculated Grams) 86703.7 [place] Body Weight 95lb (-2.5lb per in) Weight Status Obese GI Symptoms Cultural/Ethnic/Yarsanism Belief Unknown. Usual diet at home Unknown. Skin Integrity/Comment: Andi 16. Skin intact, some abrasions and bruises Estimated Nutritional Goals BEE in Kcals: Adj wt of IBW Calories/Kcals/Kg AdjBW 115.7lb/52.6kg, 25- 30kcal/kg Kcals Calculated 1315-1578kcal Protein: Adj wt of IBW Protein g/kg/kg Protein Calculated 53g Fluid: ml 1315-1578ml (1ml/kcal) Nutritional Problem 1. Problem Problem Overweight/obseity related to Etiology imabalance of energy utilization, physical inactivity Signs/Symptoms: BMI 37.2, PO intake >100% estimated needs aeb Intervention/Recommendation Comments 1. Continue with current diet. Avg PO intake meeting nutritional needs. Expected Outcomes/Goals Expected Outcomes/Goals 1. PO intake continue to meet at least 75% of estimated nutritional needs.
[2016-07-10] MEDS: Atorvastatin Calcium 10 MG TAB PO SCH (20:22)
--- NOTE | 2016-07-10 23:23 | Progress Notes ---
SUBJECTIVE: Chart reviewed and the patient interviewed. Also discussed the patient's condition with the staff and reviewed records and labs. The patient remains severely depressed. The patient also is still isolative and withdrawn and her interaction with others is minimum. The patient also still seems to be preoccupied and is forgetful. She also still at times needs directions. She also is trying to stay in bed most of the time. ASSESSMENT: The patient is still severely depressed. TREATMENT PLAN: We will continue monitoring her behavior and her condition closely. Also, we will increase Remeron to 22.5 mg at bedtime and we will continue to follow up closely. [facility]# [id number]
[2016-07-11] MEDS: Docusate Sodium 100 mg/10 mL UD PO SCH (08:57)
[2016-07-11] MEDS: Multivitamin Tab PO SCH (08:58)
[2016-07-11] MEDS: Atorvastatin Calcium 10 MG TAB PO SCH (20:48)
--- NOTE | 2016-07-11 23:43 | Progress Notes ---
SUBJECTIVE: Chart reviewed and the patient interviewed. Also discussed the patient's condition with the staff and reviewed records and labs. The patient is still severely depressed. The patient also is still withdrawn and interacting minimally with peers and others. The patient also is still feeling hopeless and wants to be left alone. She also is still showing certain motor retardation and lack of motivation and does not want to participate in group program. On the other hand, the patient is compliant with taking medications with no side effects of medications. ASSESSMENT: The patient is still severely depressed. TREATMENT PLAN: We will continue monitoring her behavior and her condition closely. Also, continue to work on her ineffective coping. Also, we will add Lexapro at a dose of 5 mg everyday and we will adjust the dose and continue to follow up. JOB# [id number]
[2016-07-12] MEDS: Docusate Sodium 100 mg/10 mL UD PO SCH (08:25)
[2016-07-12] MEDS: Multivitamin Tab PO SCH (08:25)
[2016-07-12] MEDS ORDERED: Escitalopram Oxalate 5 mg Tab PO SCH (09:00)
--- NOTE | 2016-07-12 09:00 | General Progress Note ---
Subjective - Review of Systems Service Date: 07/12/16 Subjective: no changes Objective - Physical Exam Vitals and I&O: Vital Signs Temp 98.0 F 07/11/16 14:00 Pulse 56 07/12/16 08:25 Resp 20 07/11/16 14:00 BP 130/70 07/12/16 08:25 Pulse Ox 97 07/11/16 14:00 Intake & Output 07/11/16 07/12/16 07/12/16 18:59 06:59 18:59 Intake Total 700 Balance 700 Intake: Oral 700 Other: # Voids 3 # Bowel Movements 0 Active Medications: Current Medications Acetaminophen (Tylenol) 650 mg PO Q4HR PRN PRN Reason: Pain Stop: 08/31/16 19:55 Al Hydrox/Mg Hydrox/Simethicone (Maalox) 30 ml PO Q4HR PRN PRN Reason: GI DISTRESS Stop: 08/31/16 19:55 Atorvastatin Calcium (Lipitor) 10 mg PO HS CHARISSA PRN Reason: Protocol Stop: 08/31/16 20:59 Last Admin: 07/11/16 20:48 Dose: 10 mg Docusate Sodium (Colace) 100 mg PO DAILY [facility] Stop: 09/04/16 08:59 Last Admin: 07/12/16 08:25 Dose: 100 mg Donepezil HCl (Aricept) 10 mg PO DAILY [facility] Stop: 09/01/16 08:59 Last Admin: 07/12/16 08:25 Dose: 10 mg Escitalopram Oxalate (Lexapro) 5 mg PO DAILY CHARISSA PRN Reason: Protocol Stop: 09/10/16 08:59 Last Admin: 07/12/16 08:25 Dose: 5 mg Folic Acid (Folate) 1 mg PO DAILY [facility] Stop: 09/01/16 08:59 Last Admin: 07/12/16 08:25 Dose: 1 mg Guaifenesin/Dextromethorphan (Robitussin Dm) 10 ml PO Q6HR PRN PRN Reason: Cough Stop: 08/31/16 20:12 Isosorbide Dinitrate (Isordil) 5 mg PO TID [facility] Stop: 08/31/16 20:59 Last Admin: 07/12/16 08:25 Dose: 5 mg Memantine (Namenda) 10 mg PO BID [facility] Stop: 09/01/16 08:59 Last Admin: 07/12/16 08:25 Dose: 10 mg Mirtazapine (Remeron) 22.5 mg PO HS CHARISSA PRN Reason: Protocol Stop: 09/03/16 12:31 Last Admin: 07/11/16 20:48 Dose: 22.5 mg Multivitamins/Vitamin C (Theragran) 1 tab PO DAILY [facility] Stop: 09/01/16 08:59 Last Admin: 07/12/16 08:25 Dose: 1 tab Nitroglycerin (Nitrostat) 0.4 mg SL Q5MIN PRN PRN Reason: Chest Pain Stop: 08/31/16 20:16 General: Alert, No acute distress HEENT: Atraumatic Neck: Supple Lungs: Clear to auscultation Abdomen: Bowel sounds Assessment/Plan - Problem List Patient Problems: All Active Problems cellulitis of legs improving (Acute) confusion (Acute) dementia (Acute) - Plan Plan: monitor vitals/diet f/up consultants labs Nutritional Asmnt/Malnutr-PDOC - Dietary Evaluation Malnutrition Findings (Please click <Entered> for more info): Nutritional Asmnt/Malnutrition Start: 07/06/16 16: 49 Text: Status: Complete Freq: Document 07/06/16 16:49 GSUN (Rec: 07/06/16 17:06 GSUN [email or web address]) Nutritional Asmnt/Malnutrition Patient General Information Nutritional Screening Moderate Risk Screening Diagnosis Severe dementia Pertinent Medical Hx/Surgical Hx Dementia, osteoarthritis, CAD, hyperlipidemia, cellulitis Subjective Information 63 year old female from SNF. visit pt during meal time. Observed pt sitting upright in bed, self-feeding with great hands and utensils coordinations, no difficulties chewing/swallowing, teeth present. Pt was confused, did not answer any RD questions, smiled at RD several times then resumed eating. Avg PO intake 89% of meals x past 3 days, meeting nutritional needs. Current Diet Order/ Nutrition Support Mech chopped, ORTIZ, CCHO Pertinent Medications Maalox, Lipitor, Colace, Folate, Theragran Pertinent Labs No current labs Nutritional Hx/Data Height 1.47 m Height (Calculated Centimeters) 147.3 Current Weight (lbs) 80.649 kg Weight (Calculated Kilograms) 80.6 Weight (Calculated Grams) 93513.7 [place] Body Weight 95lb (-2.5lb per in) Weight Status Obese GI Symptoms Cultural/Ethnic/Adventist Belief Unknown. Usual diet at home Unknown. Skin Integrity/Comment: Andi 16. Skin intact, some abrasions and bruises Estimated Nutritional Goals BEE in Kcals: Adj wt of IBW Calories/Kcals/Kg AdjBW 115.7lb/52.6kg, 25- 30kcal/kg Kcals Calculated 1315-1578kcal Protein: Adj wt of IBW Protein g/kg/kg Protein Calculated 53g Fluid: ml 1315-1578ml (1ml/kcal) Nutritional Problem 1. Problem Problem Overweight/obseity related to Etiology imabalance of energy utilization, physical inactivity Signs/Symptoms: BMI 37.2, PO intake >100% estimated needs aeb Intervention/Recommendation Comments 1. Continue with current diet. Avg PO intake meeting nutritional needs. Expected Outcomes/Goals Expected Outcomes/Goals 1. PO intake continue to meet at least 75% of estimated nutritional needs.
[2016-07-12] MEDS: Atorvastatin Calcium 10 MG TAB PO SCH (21:11)
--- NOTE | 2016-07-13 01:53 | Progress Notes ---
SUBJECTIVE: Chart reviewed and the patient interviewed. Also discussed the patient's condition with the staff and reviewed records and labs. Also got help with ____ from the staff. The patient remains severely depressed and she is still isolated and withdrawn. The patient also is still feeling hopeless and helpless. The patient also is interacting minimally with others. She also has psychomotor retardation and does not want to leave her room and stays in it most of the time. ASSESSMENT: The patient is still severely depressed and ____. TREATMENT PLAN: We will continue monitoring her behavior and her condition closely. Also, Lexapro at a dose of 5 mg every day was added yesterday. We will continue same dose and we will continue Remeron and we will continue to follow up. JOB# [id number]
[2016-07-13] MEDS: Docusate Sodium 100 mg/10 mL UD PO SCH (08:19)
[2016-07-13] MEDS: Multivitamin Tab PO SCH (08:20)
--- NOTE | 2016-07-13 08:22 | General Progress Note ---
Subjective - Review of Systems Subjective: no changes Objective - Physical Exam Vitals and I&O: Vital Signs Temp 98.2 F 07/12/16 20:57 Pulse 75 07/12/16 21:09 Resp 18 07/12/16 20:57 BP 122/55 07/12/16 21:09 Pulse Ox 95 07/12/16 20:57 Active Medications: Current Medications Acetaminophen (Tylenol) 650 mg PO Q4HR PRN PRN Reason: Pain Stop: 08/31/16 19:55 Al Hydrox/Mg Hydrox/Simethicone (Maalox) 30 ml PO Q4HR PRN PRN Reason: GI DISTRESS Stop: 08/31/16 19:55 Atorvastatin Calcium (Lipitor) 10 mg PO HS CHARISSA PRN Reason: Protocol Stop: 08/31/16 20:59 Last Admin: 07/12/16 21:11 Dose: 10 mg Docusate Sodium (Colace) 100 mg PO DAILY CHARISSA Stop: 09/04/16 08:59 Last Admin: 07/12/16 08:25 Dose: 100 mg Donepezil HCl (Aricept) 10 mg PO DAILY [facility]SA Stop: 09/01/16 08:59 Last Admin: 07/12/16 08:25 Dose: 10 mg Escitalopram Oxalate (Lexapro) 10 mg PO DAILY CHARISSA PRN Reason: Protocol Stop: 09/10/16 08:59 Folic Acid (Folate) 1 mg PO DAILY CHARISSA Stop: 09/01/16 08:59 Last Admin: 07/12/16 08:25 Dose: 1 mg Guaifenesin/Dextromethorphan (Robitussin Dm) 10 ml PO Q6HR PRN PRN Reason: Cough Stop: 08/31/16 20:12 Isosorbide Dinitrate (Isordil) 5 mg PO TID CHARISSA Stop: 08/31/16 20:59 Last Admin: 07/12/16 21:09 Dose: 5 mg Memantine (Namenda) 10 mg PO BID CHARISSA Stop: 09/01/16 08:59 Last Admin: 07/12/16 17:04 Dose: 10 mg Mirtazapine (Remeron) 22.5 mg PO HS CHARISSA PRN Reason: Protocol Stop: 09/03/16 12:31 Last Admin: 07/12/16 21:09 Dose: 22.5 mg Multivitamins/Vitamin C (Theragran) 1 tab PO DAILY CHARISSA Stop: 09/01/16 08:59 Last Admin: 07/12/16 08:25 Dose: 1 tab Nitroglycerin (Nitrostat) 0.4 mg SL Q5MIN PRN PRN Reason: Chest Pain Stop: 08/31/16 20:16 Assessment/Plan - Problem List Patient Problems: All Active Problems cellulitis of legs improving (Acute) confusion (Acute) dementia (Acute) - Plan Plan: monitor vitals/diet f/up consultants labs Nutritional Asmnt/Malnutr-PDOC - Dietary Evaluation Malnutrition Findings (Please click <Entered> for more info): Nutritional Asmnt/Malnutrition Start: 07/06/16 16: 49 Text: Status: Complete Freq: Document 07/06/16 16:49 GSUN (Rec: 07/06/16 17:06 GSUN [email or web address]) Nutritional Asmnt/Malnutrition Patient General Information Nutritional Screening Moderate Risk Screening Diagnosis Severe dementia Pertinent Medical Hx/Surgical Hx Dementia, osteoarthritis, CAD, hyperlipidemia, cellulitis Subjective Information 63 year old female from SNF. visit pt during meal time. Observed pt sitting upright in bed, self-feeding with great hands and utensils coordinations, no difficulties chewing/swallowing, teeth present. Pt was confused, did not answer any RD questions, smiled at RD several times then resumed eating. Avg PO intake 89% of meals x past 3 days, meeting nutritional needs. Current Diet Order/ Nutrition Support [facility] chopped, ORTIZ, CCHO Pertinent Medications Maalox, Lipitor, Colace, Folate, Theragran Pertinent Labs No current labs Nutritional Hx/Data Height 1.47 m Height (Calculated Centimeters) 147.3 Current Weight (lbs) 80.649 kg Weight (Calculated Kilograms) 80.6 Weight (Calculated Grams) 79200.7 [place] Body Weight 95lb (-2.5lb per in) Weight Status Obese GI Symptoms Cultural/Ethnic/Holiness Belief Unknown. Usual diet at home Unknown. Skin Integrity/Comment: Andi 16. Skin intact, some abrasions and bruises Estimated Nutritional Goals BEE in Kcals: Adj wt of IBW Calories/Kcals/Kg AdjBW 115.7lb/52.6kg, 25- 30kcal/kg Kcals Calculated 1315-1578kcal Protein: Adj wt of IBW Protein g/kg/kg Protein Calculated 53g Fluid: ml 1315-1578ml (1ml/kcal) Nutritional Problem 1. Problem Problem Overweight/obseity related to Etiology imabalance of energy utilization, physical inactivity Signs/Symptoms: BMI 37.2, PO intake >100% estimated needs aeb Intervention/Recommendation Comments 1. Continue with current diet. Avg PO intake meeting nutritional needs. Expected Outcomes/Goals Expected Outcomes/Goals 1. PO intake continue to meet at least 75% of estimated nutritional needs.
--- NOTE | 2016-07-13 17:08 | History & Physical ---
CHIEF COMPLAINT: Confusion. HISTORY OF PRESENT ILLNESS: The patient is an 80-year-old female with a past medical history of hypertension and hyperlipidemia admitted to the [facility] med-surg unit on 06/28/2016, with redness of lower extremities as well as multiple pustules, although the patient never had any fever or chills. She was treated with antibiotics, vancomycin initially. Wound cultures grew MSSA sensitive to Levaquin, so antibiotics were changed to Levaquin p.o. as the patient had clinical response to vancomycin, also. As she was found to be confused and was not stable, she was transferred to the nursing facility. She required psychiatric treatment. She was brought to the geropsych unit yesterday, 07/02/2016. Otherwise, the patient is stable. PAST MEDICAL HISTORY: Hyperlipidemia, dyslipidemia, Alzheimer's disease, dementia, confusion and hypertension. FAMILY HISTORY: Noncontributory. SOCIAL HISTORY: The patient lives in a nursing facility. There is no history of smoking, alcohol or drug use. PAST SURGICAL HISTORY: Not available. PSYCHIATRIC HISTORY: Dementia. MEDICATIONS: As per medication reconciliation sheet. ALLERGIES: THE PATIENT IS ALLERGIC TO PENICILLIN AND ASPIRIN. REVIEW OF SYSTEMS: GENERAL: The patient denies any fever or chills. HEENT: No diplopia, no photophobia and no sore throat. RESPIRATORY: No cough and no shortness of breath. CVS: No chest pain or palpitation. GASTROINTESTINAL: No nausea, no vomiting, no diarrhea and no constipation. GENITOURINARY: No dysuria. NEUROLOGIC: No headache, no dizziness and no focal weakness, although the patient is confused. PHYSICAL EXAMINATION: VITAL SIGNS: Current vital signs show temperature is 97.6, pulse 63, respirations 20 and blood pressure 145/47. GENERAL: The patient is comfortable, lying in the bed, not in acute distress. HEENT: Head is normocephalic and atraumatic. Oral cavity is moist, pink tongue. NECK: Supple, no JVD, no carotid bruit. Trachea in midline. CHEST: Bilateral breath sounds. No crackles or wheezing. HEART: S1, S2 within normal limits. Regular rhythm. No murmur, no gallop. ABDOMEN: Soft, nontender, nondistended. Bowel sounds present. EXTREMITIES: No cyanosis, no clubbing and no edema. The patient has redness of lower extremity, which has improved. Pustules also and redness are improving. No new lesions. NEUROLOGIC: Alert, awake and confused. LABORATORY DATA: Lab aponte current lab shows WBC count is 9800, hemoglobin 12.2, hematocrit 36, platelets are 197,000 and neutrophils 76%. Sodium 138, potassium 3.8, chloride 107, bicarb is 26, BUN is 12, creatinine 0.8 and glucose is 149. RPR is nonreactive. TSH 3.77. IMPRESSION: 1. Confusion. 2. Bilateral lower leg cellulitis. 3. Hypertension. 4. Hyperlipidemia. 5. Dementia. 6. Leukocytosis, improved. RECOMMENDATIONS: We will continue on same medications including antibiotic, Levaquin. [facility]# [id number] [facility]ENTERJosey
[2016-07-13] MEDS: Atorvastatin Calcium 10 MG TAB PO SCH (20:46)
--- NOTE | 2016-07-13 21:42 | Progress Notes ---
PSYCHIATRIC PROGRESS NOTE SUBJECTIVE: Chart reviewed and the patient interviewed. Also discussed the patient's condition with the staff and reviewed records and labs. The patient is still severely anxious and is still severely depressed. The patient also is still withdrawn and guarded. The patient also is interacting minimally with others. She also still wants to be left alone and still showing psychomotor retardation. She also is not participating in groups and she is avoiding staff. Also, her appetite is slightly decreased. Otherwise, the patient is compliant with taking her medications with no side effects of medications. ASSESSMENT: The patient is still depressed and high risk of suicide. TREATMENT PLAN: We will continue monitoring her behavior and her condition closely. Also, we will increase Lexapro to 10 mg every day and we will continue to work on her ineffective coping and we will continue to follow up. [facility]# [id number]
[2016-07-14] MEDS: Multivitamin Tab PO SCH (08:39)
[2016-07-14] MEDS: Docusate Sodium 100 mg/10 mL UD PO SCH (08:41)
--- NOTE | 2016-07-14 09:23 | General Progress Note ---
Subjective - Review of Systems Subjective: no changes Objective - Physical Exam Vitals and I&O: Vital Signs Temp 97.8 F 07/13/16 20:20 Pulse 70 07/14/16 08:39 Resp 20 07/13/16 20:20 BP 130/71 07/14/16 08:39 Pulse Ox 98 07/13/16 20:20 Intake & Output 07/13/16 07/14/16 07/14/16 18:59 06:59 18:59 Intake Total 240 Balance 240 Weight (lbs) 78.426 kg Intake: Oral 240 Other: # Voids 1 Active Medications: Current Medications Acetaminophen (Tylenol) 650 mg PO Q4HR PRN PRN Reason: Pain Stop: 08/31/16 19:55 Al Hydrox/Mg Hydrox/Simethicone (Maalox) 30 ml PO Q4HR PRN PRN Reason: GI DISTRESS Stop: 08/31/16 19:55 Atorvastatin Calcium (Lipitor) 10 mg PO HS CHARISSA PRN Reason: Protocol Stop: 08/31/16 20:59 Last Admin: 07/13/16 20:46 Dose: 10 mg Docusate Sodium (Colace) 100 mg PO DAILY [facility] Stop: 09/04/16 08:59 Last Admin: 07/14/16 08:41 Dose: 100 mg Donepezil HCl (Aricept) 10 mg PO DAILY [facility] Stop: 09/01/16 08:59 Last Admin: 07/14/16 08:39 Dose: 10 mg Escitalopram Oxalate (Lexapro) 10 mg PO DAILY [facility] PRN Reason: Protocol Stop: 09/10/16 08:59 Last Admin: 07/14/16 08:39 Dose: 10 mg Folic Acid (Folate) 1 mg PO DAILY [facility] Stop: 09/01/16 08:59 Last Admin: 07/14/16 08:39 Dose: 1 mg Guaifenesin/Dextromethorphan (Robitussin Dm) 10 ml PO Q6HR PRN PRN Reason: Cough Stop: 08/31/16 20:12 Isosorbide Dinitrate (Isordil) 5 mg PO TID [facility] Stop: 08/31/16 20:59 Last Admin: 07/14/16 08:39 Dose: 5 mg Memantine (Namenda) 10 mg PO BID [facility] Stop: 09/01/16 08:59 Last Admin: 07/14/16 08:40 Dose: 10 mg Mirtazapine (Remeron) 22.5 mg PO HS CHARISSA PRN Reason: Protocol Stop: 09/03/16 12:31 Last Admin: 07/13/16 20:45 Dose: 22.5 mg Multivitamins/Vitamin C (Theragran) 1 tab PO DAILY CHARISSA Stop: 09/01/16 08:59 Last Admin: 07/14/16 08:39 Dose: 1 tab Nitroglycerin (Nitrostat) 0.4 mg SL Q5MIN PRN PRN Reason: Chest Pain Stop: 08/31/16 20:16 General: No acute distress HEENT: Atraumatic Cardiovascular: Regular rate Abdomen: Bowel sounds Assessment/Plan - Problem List Patient Problems: All Active Problems cellulitis of legs improving (Acute) confusion (Acute) dementia (Acute) - Plan Plan: monitor vitals/diet f/up consultants labs Nutritional Asmnt/Malnutr-PDOC - Dietary Evaluation Malnutrition Findings (Please click <Entered> for more info): Nutritional Asmnt/Malnutrition Start: 07/06/16 16: 49 Text: Status: Complete Freq: Document 07/06/16 16:49 GSUN (Rec: 07/06/16 17:06 GSUN [email or web address]) Nutritional Asmnt/Malnutrition Patient General Information Nutritional Screening Moderate Risk Screening Diagnosis Severe dementia Pertinent Medical Hx/Surgical Hx Dementia, osteoarthritis, CAD, hyperlipidemia, cellulitis Subjective Information 63 year old female from SNF. visit pt during meal time. Observed pt sitting upright in bed, self-feeding with great hands and utensils coordinations, no difficulties chewing/swallowing, teeth present. Pt was confused, did not answer any RD questions, smiled at RD several times then resumed eating. Avg PO intake 89% of meals x past 3 days, meeting nutritional needs. Current Diet Order/ Nutrition Support Mech chopped, ORTIZ, CCHO Pertinent Medications Maalox, Lipitor, Colace, Folate, Theragran Pertinent Labs No current labs Nutritional Hx/Data Height 1.47 m Height (Calculated Centimeters) 147.3 Current Weight (lbs) 80.649 kg Weight (Calculated Kilograms) 80.6 Weight (Calculated Grams) 40187.7 [place] Body Weight 95lb (-2.5lb per in) Weight Status Obese GI Symptoms Cultural/Ethnic/Orthodox Belief Unknown. Usual diet at home Unknown. Skin Integrity/Comment: Andi 16. Skin intact, some abrasions and bruises Estimated Nutritional Goals BEE in Kcals: Adj wt of IBW Calories/Kcals/Kg AdjBW 115.7lb/52.6kg, 25- 30kcal/kg Kcals Calculated 1315-1578kcal Protein: Adj wt of IBW Protein g/kg/kg Protein Calculated 53g Fluid: ml 1315-1578ml (1ml/kcal) Nutritional Problem 1. Problem Problem Overweight/obseity related to Etiology imabalance of energy utilization, physical inactivity Signs/Symptoms: BMI 37.2, PO intake >100% estimated needs aeb Intervention/Recommendation Comments 1. Continue with current diet. Avg PO intake meeting nutritional needs. Expected Outcomes/Goals Expected Outcomes/Goals 1. PO intake continue to meet at least 75% of estimated nutritional needs.
[2016-07-14] MEDS: Atorvastatin Calcium 10 MG TAB PO SCH (20:52)
--- NOTE | 2016-07-15 04:25 | Progress Notes ---
The patient continued to be severely depressed. The patient also is still feeling hopeless and helpless. The patient also still tends to isolate herself and is still withdrawn and interacting minimally with peers and others. The patient also is still feeling hopeless and helpless. Also, psychomotor retardation. Also, during the interview, the patient wants help with translation. The patient is still depressed and she is still having lack of motivation and does not want to get out of her bed or her room. ASSESSMENT: The patient is still depressed and high risk of suicide. TREATMENT PLAN: We will continue monitoring her behavior and her condition closely. Also, Lexapro was increased yesterday to 10 mg every day and we will continue same dose and we will continue to work on her ____. JOB# [id number]
--- NOTE | 2016-07-15 09:05 | General Progress Note ---
Subjective - Review of Systems Subjective: no changes Objective - Physical Exam Vitals and I&O: Vital Signs Temp 98 F 07/15/16 06:39 Pulse 62 07/15/16 06:39 Resp 18 07/15/16 06:39 BP 131/65 07/15/16 06:39 Pulse Ox 98 07/15/16 06:39 Intake & Output 07/14/16 07/15/16 07/15/16 17:59 06:59 18:59 Intake Total Balance Intake: Oral Other: # Voids Active Medications: Current Medications Acetaminophen (Tylenol) 650 mg PO Q4HR PRN PRN Reason: Pain Stop: 08/31/16 19:55 Al Hydrox/Mg Hydrox/Simethicone (Maalox) 30 ml PO Q4HR PRN PRN Reason: GI DISTRESS Stop: 08/31/16 19:55 Atorvastatin Calcium (Lipitor) 10 mg PO HS CHARISSA PRN Reason: Protocol Stop: 08/31/16 20:59 Last Admin: 07/14/16 20:52 Dose: 10 mg Docusate Sodium (Colace) 100 mg PO DAILY [facility] Stop: 09/04/16 08:59 Last Admin: 07/14/16 08:41 Dose: 100 mg Donepezil HCl (Aricept) 10 mg PO DAILY CHARISSA Stop: 09/01/16 08:59 Last Admin: 07/14/16 08:39 Dose: 10 mg Escitalopram Oxalate (Lexapro) 10 mg PO DAILY CHARISSA PRN Reason: Protocol Stop: 09/10/16 08:59 Last Admin: 07/14/16 08:39 Dose: 10 mg Folic Acid (Folate) 1 mg PO DAILY [facility] Stop: 09/01/16 08:59 Last Admin: 07/14/16 08:39 Dose: 1 mg Guaifenesin/Dextromethorphan (Robitussin Dm) 10 ml PO Q6HR PRN PRN Reason: Cough Stop: 08/31/16 20:12 Isosorbide Dinitrate (Isordil) 5 mg PO TID [facility] Stop: 08/31/16 20:59 Last Admin: 07/14/16 20:53 Dose: 5 mg Memantine (Namenda) 10 mg PO BID CHARISSA Stop: 09/01/16 08:59 Last Admin: 07/14/16 16:51 Dose: 10 mg Mirtazapine (Remeron) 22.5 mg PO HS CHARISSA PRN Reason: Protocol Stop: 09/03/16 12:31 Last Admin: 07/14/16 20:52 Dose: 22.5 mg Multivitamins/Vitamin C (Theragran) 1 tab PO DAILY CHARISSA Stop: 09/01/16 08:59 Last Admin: 07/14/16 08:39 Dose: 1 tab Nitroglycerin (Nitrostat) 0.4 mg SL Q5MIN PRN PRN Reason: Chest Pain Stop: 08/31/16 20:16 Assessment/Plan - Problem List Patient Problems: All Active Problems cellulitis of legs improving (Acute) confusion (Acute) dementia (Acute) - Plan Plan: monitor vitals/diet f/up consultants labs Nutritional Asmnt/Malnutr-PDOC - Dietary Evaluation Malnutrition Findings (Please click <Entered> for more info): Nutritional Asmnt/Malnutrition Start: 07/06/16 16: 49 Text: Status: Complete Freq: Document 07/06/16 16:49 GSUN (Rec: 07/06/16 17:06 [id number]) Nutritional Asmnt/Malnutrition Patient General Information Nutritional Screening Moderate Risk Screening Diagnosis Severe dementia Pertinent Medical Hx/Surgical Hx Dementia, osteoarthritis, CAD, hyperlipidemia, cellulitis Subjective Information 63 year old female from SNF. visit pt during meal time. Observed pt sitting upright in bed, self-feeding with great hands and utensils coordinations, no difficulties chewing/swallowing, teeth present. Pt was confused, did not answer any RD questions, smiled at RD several times then resumed eating. Avg PO intake 89% of meals x past 3 days, meeting nutritional needs. Current Diet Order/ Nutrition Support [facility] chopped, ORTIZ, CCHO Pertinent Medications Maalox, Lipitor, Colace, Folate, Theragran Pertinent Labs No current labs Nutritional Hx/Data Height 1.47 m Height (Calculated Centimeters) 147.3 Current Weight (lbs) 80.649 kg Weight (Calculated Kilograms) 80.6 Weight (Calculated Grams) 75306.7 [place] Body Weight 95lb (-2.5lb per in) Weight Status Obese GI Symptoms Cultural/Ethnic/Baptist Belief Unknown. Usual diet at home Unknown. Skin Integrity/Comment: Andi 16. Skin intact, some abrasions and bruises Estimated Nutritional Goals BEE in Kcals: Adj wt of IBW Calories/Kcals/Kg AdjBW 115.7lb/52.6kg, 25- 30kcal/kg Kcals Calculated 1315-1578kcal Protein: Adj wt of IBW Protein g/kg/kg Protein Calculated 53g Fluid: ml 1315-1578ml (1ml/kcal) Nutritional Problem 1. Problem Problem Overweight/obseity related to Etiology imabalance of energy utilization, physical inactivity Signs/Symptoms: BMI 37.2, PO intake >100% estimated needs aeb Intervention/Recommendation Comments 1. Continue with current diet. Avg PO intake meeting nutritional needs. Expected Outcomes/Goals Expected Outcomes/Goals 1. PO intake continue to meet at least 75% of estimated nutritional needs.
[2016-07-15] MEDS: Docusate Sodium 100 mg/10 mL UD PO SCH (09:13)
[2016-07-15] MEDS: Multivitamin Tab PO SCH (09:14)
[2016-07-15] MEDS: Atorvastatin Calcium 10 MG TAB PO SCH (20:51)
--- NOTE | 2016-07-15 22:29 | Progress Notes ---
SUBJECTIVE: Chart reviewed and the patient interviewed. Also discussed the patient's condition with the staff and reviewed records and labs. The patient continued to be severely depressed and she is still feeling hopeless and helpless. The patient also is still withdrawn and interacting minimally with others. The patient also still wants to be left alone. On the other hand, the patient continue to take Lexapro with no side effects. ASSESSMENT: The patient is still depressed and is still high risk for suicide. TREATMENT PLAN: We will continue monitoring her behavior and her condition closely. Also, continue adjusting psychotropic medications and followup. JOB# [id number]
[2016-07-16] MEDS: Multivitamin Tab PO SCH (08:48)
[2016-07-16] MEDS: Docusate Sodium 100 mg/10 mL UD PO SCH (08:48)
--- NOTE | 2016-07-16 10:35 | General Progress Note ---
Subjective - Review of Systems Subjective: no changes Objective - Physical Exam Vitals and I&O: Vital Signs Temp 97.8 F 07/16/16 06:30 Pulse 68 07/16/16 08:48 Resp 18 07/16/16 06:30 BP 131/74 07/16/16 08:48 Pulse Ox 97 07/16/16 06:30 Intake & Output 07/15/16 07/16/16 07/16/16 18:59 06:59 18:59 Intake Total 120 Balance 120 Intake: Oral 120 Other: # Voids 3 Active Medications: Current Medications Acetaminophen (Tylenol) 650 mg PO Q4HR PRN PRN Reason: Pain Stop: 08/31/16 19:55 Al Hydrox/Mg Hydrox/Simethicone (Maalox) 30 ml PO Q4HR PRN PRN Reason: GI DISTRESS Stop: 08/31/16 19:55 Atorvastatin Calcium (Lipitor) 10 mg PO HS CHARISSA PRN Reason: Protocol Stop: 08/31/16 20:59 Last Admin: 07/15/16 20:51 Dose: 10 mg Docusate Sodium (Colace) 100 mg PO DAILY [facility] Stop: 09/04/16 08:59 Last Admin: 07/16/16 08:48 Dose: 100 mg Donepezil HCl (Aricept) 10 mg PO DAILY [facility] Stop: 09/01/16 08:59 Last Admin: 07/16/16 08:48 Dose: 10 mg Escitalopram Oxalate (Lexapro) 10 mg PO DAILY [facility]ISSA PRN Reason: Protocol Stop: 09/10/16 08:59 Last Admin: 07/16/16 08:53 Dose: 10 mg Folic Acid (Folate) 1 mg PO DAILY [facility] Stop: 09/01/16 08:59 Last Admin: 07/16/16 08:48 Dose: 1 mg Guaifenesin/Dextromethorphan (Robitussin Dm) 10 ml PO Q6HR PRN PRN Reason: Cough Stop: 08/31/16 20:12 Isosorbide Dinitrate (Isordil) 5 mg PO TID [facility] Stop: 08/31/16 20:59 Last Admin: 07/16/16 08:48 Dose: 5 mg Memantine (Namenda) 10 mg PO BID [facility] Stop: 09/01/16 08:59 Last Admin: 07/16/16 08:53 Dose: 10 mg Mirtazapine (Remeron) 22.5 mg PO HS CHARISSA PRN Reason: Protocol Stop: 09/03/16 12:31 Last Admin: 07/15/16 20:53 Dose: 22.5 mg Multivitamins/Vitamin C (Theragran) 1 tab PO DAILY [facility] Stop: 09/01/16 08:59 Last Admin: 07/16/16 08:48 Dose: 1 tab Nitroglycerin (Nitrostat) 0.4 mg SL Q5MIN PRN PRN Reason: Chest Pain Stop: 08/31/16 20:16 General: No acute distress HEENT: Atraumatic Neck: Supple Cardiovascular: Regular rate, Rubs Lungs: Clear to auscultation Abdomen: Bowel sounds Assessment/Plan - Problem List Patient Problems: All Active Problems cellulitis of legs improving (Acute) confusion (Acute) dementia (Acute) - Plan Plan: monitor vitals/diet f/up consultants labs Nutritional Asmnt/Malnutr-PDOC - Dietary Evaluation Malnutrition Findings (Please click <Entered> for more info): Nutritional Asmnt/Malnutrition Start: 07/06/16 16: 49 Text: Status: Complete Freq: Document 07/06/16 16:49 GSUN (Rec: 07/06/16 17:06 GSUN [email or web address]) Nutritional Asmnt/Malnutrition Patient General Information Nutritional Screening Moderate Risk Screening Diagnosis Severe dementia Pertinent Medical Hx/Surgical Hx Dementia, osteoarthritis, CAD, hyperlipidemia, cellulitis Subjective Information 63 year old female from SNF. visit pt during meal time. Observed pt sitting upright in bed, self-feeding with great hands and utensils coordinations, no difficulties chewing/swallowing, teeth present. Pt was confused, did not answer any RD questions, smiled at RD several times then resumed eating. Avg PO intake 89% of meals x past 3 days, meeting nutritional needs. Current Diet Order/ Nutrition Support Mech chopped, ORTIZ, CCHO Pertinent Medications Maalox, Lipitor, Colace, Folate, Theragran Pertinent Labs No current labs Nutritional Hx/Data Height 1.47 m Height (Calculated Centimeters) 147.3 Current Weight (lbs) 80.649 kg Weight (Calculated Kilograms) 80.6 Weight (Calculated Grams) 12331.7 [place] Body Weight 95lb (-2.5lb per in) Weight Status Obese GI Symptoms Cultural/Ethnic/Islam Belief Unknown. Usual diet at home Unknown. Skin Integrity/Comment: Andi 16. Skin intact, some abrasions and bruises Estimated Nutritional Goals BEE in Kcals: Adj wt of IBW Calories/Kcals/Kg AdjBW 115.7lb/52.6kg, 25- 30kcal/kg Kcals Calculated 1315-1578kcal Protein: Adj wt of IBW Protein g/kg/kg Protein Calculated 53g Fluid: ml 1315-1578ml (1ml/kcal) Nutritional Problem 1. Problem Problem Overweight/obseity related to Etiology imabalance of energy utilization, physical inactivity Signs/Symptoms: BMI 37.2, PO intake >100% estimated needs aeb Intervention/Recommendation Comments 1. Continue with current diet. Avg PO intake meeting nutritional needs. Expected Outcomes/Goals Expected Outcomes/Goals 1. PO intake continue to meet at least 75% of estimated nutritional needs.
[2016-07-16] MEDS: Atorvastatin Calcium 10 MG TAB PO SCH (20:07)
--- NOTE | 2016-07-17 00:12 | Progress Notes ---
Case was discussed with staff and the patient, reviewed records. The patient continues to be confused, demented, continues to be unpredictable, impulsive. The patient so far is compliant with the medication with no side effects, no sedation, no nausea, no extrapyramidal symptoms. I am not sure, I will check with the case loader operator about where she will be going to work on discharge plans, and we will continue to work with the patient in group therapy, milieu therapy, and adjust the medication as needed. JOB# [id number]
[2016-07-17] MEDS: Docusate Sodium 100 mg/10 mL UD PO SCH (08:00)
[2016-07-17] MEDS: Multivitamin Tab PO SCH (08:01)
--- NOTE | 2016-07-17 08:45 | General Progress Note ---
Subjective - Review of Systems Subjective: no changes Objective - Physical Exam Vitals and I&O: Vital Signs Temp 98.1 F 07/17/16 06:41 Pulse 61 07/17/16 08:01 Resp 18 07/17/16 06:41 BP 156/66 07/17/16 08:01 Pulse Ox 96 07/17/16 06:41 Intake & Output 07/16/16 07/17/16 07/17/16 18:59 06:59 18:59 Intake Total 800 240 Balance 800 240 Intake: Oral 800 240 Other: # Voids 4 2 # Bowel Movements 2 1 Active Medications: Current Medications Acetaminophen (Tylenol) 650 mg PO Q4HR PRN PRN Reason: Pain Stop: 08/31/16 19:55 Al Hydrox/Mg Hydrox/Simethicone (Maalox) 30 ml PO Q4HR PRN PRN Reason: GI DISTRESS Stop: 08/31/16 19:55 Atorvastatin Calcium (Lipitor) 10 mg PO HS CHARISSA PRN Reason: Protocol Stop: 08/31/16 20:59 Last Admin: 07/16/16 20:07 Dose: 10 mg Docusate Sodium (Colace) 100 mg PO DAILY [facility] Stop: 09/04/16 08:59 Last Admin: 07/17/16 08:00 Dose: 100 mg Donepezil HCl (Aricept) 10 mg PO DAILY [facility] Stop: 09/01/16 08:59 Last Admin: 07/17/16 08:01 Dose: 10 mg Escitalopram Oxalate (Lexapro) 10 mg PO DAILY [facility] PRN Reason: Protocol Stop: 09/10/16 08:59 Last Admin: 07/17/16 08:01 Dose: 10 mg Folic Acid (Folate) 1 mg PO DAILY [facility] Stop: 09/01/16 08:59 Last Admin: 07/17/16 08:02 Dose: 1 mg Guaifenesin/Dextromethorphan (Robitussin Dm) 10 ml PO Q6HR PRN PRN Reason: Cough Stop: 08/31/16 20:12 Isosorbide Dinitrate (Isordil) 5 mg PO TID [facility] Stop: 08/31/16 20:59 Last Admin: 07/17/16 08:01 Dose: 5 mg Memantine (Namenda) 10 mg PO BID [facility] Stop: 09/01/16 08:59 Last Admin: 07/17/16 08:01 Dose: 10 mg Mirtazapine (Remeron) 22.5 mg PO HS CHARISSA PRN Reason: Protocol Stop: 09/03/16 12:31 Last Admin: 07/16/16 20:08 Dose: 22.5 mg Multivitamins/Vitamin C (Theragran) 1 tab PO DAILY CHARISSA Stop: 09/01/16 08:59 Last Admin: 07/17/16 08:01 Dose: 1 tab Nitroglycerin (Nitrostat) 0.4 mg SL Q5MIN PRN PRN Reason: Chest Pain Stop: 08/31/16 20:16 Assessment/Plan - Problem List Patient Problems: All Active Problems cellulitis of legs improving (Acute) confusion (Acute) dementia (Acute) - Plan Plan: monitor vitals/diet f/up consultants labs Nutritional Asmnt/Malnutr-PDOC - Dietary Evaluation Malnutrition Findings (Please click <Entered> for more info): Nutritional Asmnt/Malnutrition Start: 07/06/16 16: 49 Text: Status: Complete Freq: Document 07/06/16 16:49 GSUN (Rec: 07/06/16 17:06 GSUN [id number]) Nutritional Asmnt/Malnutrition Patient General Information Nutritional Screening Moderate Risk Screening Diagnosis Severe dementia Pertinent Medical Hx/Surgical Hx Dementia, osteoarthritis, CAD, hyperlipidemia, cellulitis Subjective Information 63 year old female from SNF. visit pt during meal time. Observed pt sitting upright in bed, self-feeding with great hands and utensils coordinations, no difficulties chewing/swallowing, teeth present. Pt was confused, did not answer any RD questions, smiled at RD several times then resumed eating. Avg PO intake 89% of meals x past 3 days, meeting nutritional needs. Current Diet Order/ Nutrition Support [facility] chopped, ORTIZ, CCHO Pertinent Medications Maalox, Lipitor, Colace, Folate, Theragran Pertinent Labs No current labs Nutritional Hx/Data Height 1.47 m Height (Calculated Centimeters) 147.3 Current Weight (lbs) 80.649 kg Weight (Calculated Kilograms) 80.6 Weight (Calculated Grams) 33927.7 [place] Body Weight 95lb (-2.5lb per in) Weight Status Obese GI Symptoms Cultural/Ethnic/Yarsani Belief Unknown. Usual diet at home Unknown. Skin Integrity/Comment: Andi 16. Skin intact, some abrasions and bruises Estimated Nutritional Goals BEE in Kcals: Adj wt of IBW Calories/Kcals/Kg AdjBW 115.7lb/52.6kg, 25- 30kcal/kg Kcals Calculated 1315-1578kcal Protein: Adj wt of IBW Protein g/kg/kg Protein Calculated 53g Fluid: ml 1315-1578ml (1ml/kcal) Nutritional Problem 1. Problem Problem Overweight/obseity related to Etiology imabalance of energy utilization, physical inactivity Signs/Symptoms: BMI 37.2, PO intake >100% estimated needs aeb Intervention/Recommendation Comments 1. Continue with current diet. Avg PO intake meeting nutritional needs. Expected Outcomes/Goals Expected Outcomes/Goals 1. PO intake continue to meet at least 75% of estimated nutritional needs.
[2016-07-17] MEDS: Atorvastatin Calcium 10 MG TAB PO SCH (20:21)
--- NOTE | 2016-07-18 00:25 | Progress Notes ---
Covering for Dr. Gaytan. Case was discussed with staff and the patient, reviewed records. The patient continues to be confused, demented, continues to be unpredictable, impulsive, and needing redirection. Very poor insight. Continues to be depressed and hopeless and helpless, withdrawn, at times suicidal. No side effects with the medication, no sedation, no nausea. She is on Aricept 10 mg at bedtime and the dose of Lexapro was increased on 07/13/2016 to 10 mg a day with no side effects, no sedation, no nausea, and she is already on Namenda 10 mg twice a day and Remeron 22.5 mg at bedtime, and we will continue to work with the patient in group therapy, milieu therapy, and adjust medications as needed. JOB# [id number]
--- NOTE | 2016-07-18 08:28 | General Progress Note ---
Subjective - Review of Systems Service Date: 07/18/16 Subjective: pt had agitstion was put on restraints Objective - Physical Exam Vitals and I&O: Vital Signs Temp 97.8 F 07/18/16 06:30 Pulse 62 07/18/16 06:30 Resp 20 07/18/16 06:30 BP 138/50 07/18/16 06:30 Pulse Ox 98 07/18/16 06:30 Intake & Output 07/17/16 07/18/16 07/18/16 18:59 06:59 18:59 Intake Total 800 240 Balance 800 240 Intake: Oral 800 240 Other: # Voids 4 3 # Bowel Movements 2 0 Active Medications: Current Medications Acetaminophen (Tylenol) 650 mg PO Q4HR PRN PRN Reason: Pain Stop: 08/31/16 19:55 Al Hydrox/Mg Hydrox/Simethicone (Maalox) 30 ml PO Q4HR PRN PRN Reason: GI DISTRESS Stop: 08/31/16 19:55 Atorvastatin Calcium (Lipitor) 10 mg PO HS CHARISSA PRN Reason: Protocol Stop: 08/31/16 20:59 Last Admin: 07/17/16 20:21 Dose: 10 mg Docusate Sodium (Colace) 100 mg PO DAILY [facility] Stop: 09/04/16 08:59 Last Admin: 07/17/16 08:00 Dose: 100 mg Donepezil HCl (Aricept) 10 mg PO DAILY [facility] Stop: 09/01/16 08:59 Last Admin: 07/17/16 08:01 Dose: 10 mg Escitalopram Oxalate (Lexapro) 15 mg PO DAILY CHARISSA PRN Reason: Protocol Stop: 09/10/16 08:59 Folic Acid (Folate) 1 mg PO DAILY [facility] Stop: 09/01/16 08:59 Last Admin: 07/17/16 08:02 Dose: 1 mg Guaifenesin/Dextromethorphan (Robitussin Dm) 10 ml PO Q6HR PRN PRN Reason: Cough Stop: 08/31/16 20:12 Isosorbide Dinitrate (Isordil) 5 mg PO TID CHARISSA Stop: 08/31/16 20:59 Last Admin: 07/17/16 20:21 Dose: 5 mg Memantine (Namenda) 10 mg PO BID [facility] Stop: 09/01/16 08:59 Last Admin: 07/17/16 16:29 Dose: 10 mg Mirtazapine (Remeron) 22.5 mg PO HS CHARISSA PRN Reason: Protocol Stop: 09/03/16 12:31 Last Admin: 07/17/16 20:22 Dose: 22.5 mg Multivitamins/Vitamin C (Theragran) 1 tab PO DAILY CHARISSA Stop: 09/01/16 08:59 Last Admin: 07/17/16 08:01 Dose: 1 tab Nitroglycerin (Nitrostat) 0.4 mg SL Q5MIN PRN PRN Reason: Chest Pain Stop: 08/31/16 20:16 General: No acute distress, Moderate distress HEENT: Atraumatic Neck: Supple Cardiovascular: Regular rate Lungs: Clear to auscultation Abdomen: Bowel sounds Assessment/Plan - Problem List Patient Problems: All Active Problems Psychosis (Acute) F29 cellulitis of legs improving (Acute) confusion (Acute) dementia (Acute) - Plan Plan: monitor vitals/diet f/up consultants labs as per psych Nutritional Asmnt/Malnutr-PDOC - Dietary Evaluation Malnutrition Findings (Please click <Entered> for more info): Nutritional Asmnt/Malnutrition Start: 07/06/16 16: 49 Text: Status: Complete Freq: Document 07/06/16 16:49 GSDARRON (Rec: 07/06/16 17:06 GSDARRON [id number]) Nutritional Asmnt/Malnutrition Patient General Information Nutritional Screening Moderate Risk Screening Diagnosis Severe dementia Pertinent Medical Hx/Surgical Hx Dementia, osteoarthritis, CAD, hyperlipidemia, cellulitis Subjective Information 63 year old female from SNF. visit pt during meal time. Observed pt sitting upright in bed, self-feeding with great hands and utensils coordinations, no difficulties chewing/swallowing, teeth present. Pt was confused, did not answer any RD questions, smiled at RD several times then resumed eating. Avg PO intake 89% of meals x past 3 days, meeting nutritional needs. Current Diet Order/ Nutrition Support [facility] chopped, ORTIZ, CCHO Pertinent Medications Maalox, Lipitor, Colace, Folate, Theragran Pertinent Labs No current labs Nutritional Hx/Data Height 1.47 m Height (Calculated Centimeters) 147.3 Current Weight (lbs) 80.649 kg Weight (Calculated Kilograms) 80.6 Weight (Calculated Grams) 17739.7 [place] Body Weight 95lb (-2.5lb per in) Weight Status Obese GI Symptoms Cultural/Ethnic/Alevism Belief Unknown. Usual diet at home Unknown. Skin Integrity/Comment: Andi 16. Skin intact, some abrasions and bruises Estimated Nutritional Goals BEE in Kcals: Adj wt of IBW Calories/Kcals/Kg AdjBW 115.7lb/52.6kg, 25- 30kcal/kg Kcals Calculated 1315-1578kcal Protein: Adj wt of IBW Protein g/kg/kg Protein Calculated 53g Fluid: ml 1315-1578ml (1ml/kcal) Nutritional Problem 1. Problem Problem Overweight/obseity related to Etiology imabalance of energy utilization, physical inactivity Signs/Symptoms: BMI 37.2, PO intake >100% estimated needs aeb Intervention/Recommendation Comments 1. Continue with current diet. Avg PO intake meeting nutritional needs. Expected Outcomes/Goals Expected Outcomes/Goals 1. PO intake continue to meet at least 75% of estimated nutritional needs.
[2016-07-18] MEDS: Multivitamin Tab PO SCH (09:36)
[2016-07-18] MEDS: Docusate Sodium 100 mg/10 mL UD PO SCH (09:37)
--- NOTE | 2016-07-18 18:16 | Progress Notes ---
SUBJECTIVE: Chart reviewed and the patient interviewed. Also discussed the patient's condition with the staff and reviewed records and labs. The patient continued to be severely depressed and withdrawn. The patient also is still feeling hopeless and helpless, and she is still interacting minimally with others. The patient also still has poor eye contact and lack of energy and wants to be left alone and stays by herself in his room most of the time. Otherwise, the patient is compliant with taking her medications with no side effects of medications. ASSESSMENT: The patient is still depressed and high risk suicide. TREATMENT PLAN: Continue to monitor her behavior and her condition closely. Also continue adjusting Lexapro dose and work on her ineffective coping. [facility]# [id number]
[2016-07-18] MEDS: Atorvastatin Calcium 10 MG TAB PO SCH (20:49)
[2016-07-19] MEDS: Docusate Sodium 100 mg/10 mL UD PO SCH (09:20)
[2016-07-19] MEDS: Multivitamin Tab PO SCH (09:21)
--- NOTE | 2016-07-19 14:25 | General Progress Note ---
Subjective - Review of Systems Subjective: no distress Objective - Physical Exam Vitals and I&O: Vital Signs Temp 97.1 F 07/19/16 06:20 Pulse 65 07/19/16 14:07 Resp 18 07/19/16 06:20 BP 125/57 07/19/16 14:07 Pulse Ox 98 07/19/16 06:20 Intake & Output 07/18/16 07/19/16 07/19/16 18:59 06:59 18:59 Intake Total 2400 120 Balance 2400 120 Intake: Oral 2400 120 Other: # Voids 4 3 # Bowel Movements 0 Active Medications: Current Medications Acetaminophen (Tylenol) 650 mg PO Q4HR PRN PRN Reason: Pain Stop: 08/31/16 19:55 Al Hydrox/Mg Hydrox/Simethicone (Maalox) 30 ml PO Q4HR PRN PRN Reason: GI DISTRESS Stop: 08/31/16 19:55 Atorvastatin Calcium (Lipitor) 10 mg PO HS CHARISSA PRN Reason: Protocol Stop: 08/31/16 20:59 Last Admin: 07/18/16 20:49 Dose: 10 mg Docusate Sodium (Colace) 100 mg PO DAILY [facility] Stop: 09/04/16 08:59 Last Admin: 07/19/16 09:20 Dose: 100 mg Donepezil HCl (Aricept) 10 mg PO DAILY [facility] Stop: 09/01/16 08:59 Last Admin: 07/19/16 09:21 Dose: 10 mg Escitalopram Oxalate (Lexapro) 15 mg PO DAILY [facility] PRN Reason: Protocol Stop: 09/10/16 08:59 Last Admin: 07/19/16 09:20 Dose: 15 mg Folic Acid (Folate) 1 mg PO DAILY [facility] Stop: 09/01/16 08:59 Last Admin: 07/19/16 09:21 Dose: 1 mg Guaifenesin/Dextromethorphan (Robitussin Dm) 10 ml PO Q6HR PRN PRN Reason: Cough Stop: 08/31/16 20:12 Isosorbide Dinitrate (Isordil) 5 mg PO TID [facility] Stop: 08/31/16 20:59 Last Admin: 07/19/16 14:07 Dose: Not Given Memantine (Namenda) 10 mg PO BID [facility] Stop: 09/01/16 08:59 Last Admin: 07/19/16 09:22 Dose: 10 mg Mirtazapine (Remeron) 22.5 mg PO HS CHARISSA PRN Reason: Protocol Stop: 09/03/16 12:31 Last Admin: 07/18/16 20:48 Dose: 22.5 mg Multivitamins/Vitamin C (Theragran) 1 tab PO DAILY [facility]IS[facility] Stop: 09/01/16 08:59 Last Admin: 07/19/16 09:21 Dose: 1 tab Nitroglycerin (Nitrostat) 0.4 mg SL Q5MIN PRN PRN Reason: Chest Pain Stop: 08/31/16 20:16 General: No acute distress HEENT: Atraumatic Neck: Supple Cardiovascular: Regular rate Abdomen: Bowel sounds Assessment/Plan - Problem List Patient Problems: All Active Problems Psychosis (Acute) F29 cellulitis of legs improving (Acute) confusion (Acute) dementia (Acute) - Plan Plan: monitor vitals/diet f/up consultants labs as per psych Nutritional Asmnt/Malnutr-PDOC - Dietary Evaluation Malnutrition Findings (Please click <Entered> for more info): Nutritional Asmnt/Malnutrition Start: 07/06/16 16: 49 Text: Status: Complete Freq: Document 07/06/16 16:49 GSUN (Rec: 07/06/16 17:06 GSDARRON [id number]) Nutritional Asmnt/Malnutrition Patient General Information Nutritional Screening Moderate Risk Screening Diagnosis Severe dementia Pertinent Medical Hx/Surgical Hx Dementia, osteoarthritis, CAD, hyperlipidemia, cellulitis Subjective Information 63 year old female from SNF. visit pt during meal time. Observed pt sitting upright in bed, self-feeding with great hands and utensils coordinations, no difficulties chewing/swallowing, teeth present. Pt was confused, did not answer any RD questions, smiled at RD several times then resumed eating. Avg PO intake 89% of meals x past 3 days, meeting nutritional needs. Current Diet Order/ Nutrition Support [facility] chopped, ORTIZ, CCHO Pertinent Medications Maalox, Lipitor, Colace, Folate, Theragran Pertinent Labs No current labs Nutritional Hx/Data Height 1.47 m Height (Calculated Centimeters) 147.3 Current Weight (lbs) 80.649 kg Weight (Calculated Kilograms) 80.6 Weight (Calculated Grams) 55804.7 [place] Body Weight 95lb (-2.5lb per in) Weight Status Obese GI Symptoms Cultural/Ethnic/Congregation Belief Unknown. Usual diet at home Unknown. Skin Integrity/Comment: Andi 16. Skin intact, some abrasions and bruises Estimated Nutritional Goals BEE in Kcals: Adj wt of IBW Calories/Kcals/Kg AdjBW 115.7lb/52.6kg, 25- 30kcal/kg Kcals Calculated 1315-1578kcal Protein: Adj wt of IBW Protein g/kg/kg Protein Calculated 53g Fluid: ml 1315-1578ml (1ml/kcal) Nutritional Problem 1. Problem Problem Overweight/obseity related to Etiology imabalance of energy utilization, physical inactivity Signs/Symptoms: BMI 37.2, PO intake >100% estimated needs aeb Intervention/Recommendation Comments 1. Continue with current diet. Avg PO intake meeting nutritional needs. Expected Outcomes/Goals Expected Outcomes/Goals 1. PO intake continue to meet at least 75% of estimated nutritional needs.
[2016-07-19] MEDS: Atorvastatin Calcium 10 MG TAB PO SCH (20:14)
--- NOTE | 2016-07-20 04:00 | Progress Notes ---
SUBJECTIVE: Chart reviewed and the patient interviewed. Also discussed the patient's condition with the staff and reviewed records and labs. The patient is still severely depressed and she is still feeling hopeless and helpless. The patient also is still interacting minimally with peers and with others. The patient also is having difficulty with her mood and she is still suspicious and is still paranoid at times, but less than before. The patient continued to comply with taking her medications. She wants to stay in bed and have been giving staff difficulty getting out of her room. ASSESSMENT: The patient is still depressed. TREATMENT PLAN: We will continue to monitor her behavior and her condition closely. Also, we will continue to work on her isolation. Also, we will increase Lexapro to 20 mg everyday and we will continue to follow up. [facility]# [id number]
[2016-07-20] MEDS: Docusate Sodium 100 mg/10 mL UD PO SCH (08:57)
[2016-07-20] MEDS: Multivitamin Tab PO SCH (08:58)
--- NOTE | 2016-07-20 14:18 | Discharge Summary ---
AGE: 80. SEX: Female. PHYSICIAN: Dr. Gaytan. FINAL DIAGNOSES AND PRIMARY DIAGNOSES: Major depression, severe, recurrent, without psychotic features. SECONDARY DIAGNOSIS: Dementia, mild, without psychotic features. REASON FOR HOSPITALIZATION: The patient was admitted to the hospital because of increased depression and agitation and suicidal ideations. HOSPITAL COURSE: The patient was continued to be severely depressed. The staff tried to help to encourage the patient to get out and to socialize more, but she continued to be severely depressed and continued to be feeling hopeless and helpless and isolating herself with poor appetite. The patient was started on Lexapro and her dose adjusted gradually up to 20 mg every day. Gradually, the patient's affect became brighter. The patient was less depressed and she interacted more. She also denies any thoughts of suicide or homicide. She also denies any side effects of Lexapro and the patient was discharged from the hospital. Physical exam of the patient was basically with no major medical problems and the patient has no major medical problems while in the hospital. Also, no major abnormal blood work. AFTER-DISCHARGE PLANS: The patient discharged from the hospital and returned to her placement and outpatient treatment and followup to continue there. DISCHARGE ACTIVITY: As tolerated. DISCHARGE DIET: Regular. DISCHARGE PSYCHOTROPIC MEDICATION: Lexapro 20 mg every day. EXPECTED OUTCOME AFTER DISCHARGE: Fair if the patient continued to take his psychotropic medications and continued to follow up. [facility]# [id number]
== END 2016-07-20 14:30 | DRG 885 ==
LOC: GERO 18:33
PROVIDERS: ADMIT Psychiatry & Neurology Psychiatry; ATTEND Psychiatry & Neurology Psychiatry
DX: F33.2 Major depressive disorder, recurrent severe without psychotic features (principal); L03.115 Cellulitis of right lower limb; G30.9 Alzheimer's disease, unspecified; F02.80 Dementia in other diseases classified elsewhere, unspecified severity, without behavioral disturbance, psychotic disturbance, mood disturbance, and anxiety; L03.116 Cellulitis of left lower limb; I10 Essential (primary) hypertension; E78.5 Hyperlipidemia, unspecified; M19.90 Unspecified osteoarthritis, unspecified site; I25.10 Atherosclerotic heart disease of native coronary artery without angina pectoris; G47.00 Insomnia, unspecified; Z88.6 Allergy status to analgesic agent; Z88.0 Allergy status to penicillin
CPT/HCPCS: Z7610

== ENCOUNTER 2017-08-09 12:47 | Inpatient (IN) | payer MEDICARE, MEDICAID ==
--- NOTE | 2017-08-09 12:59 | ED Physician Chart ---
ED Chief Complaint/HPI - Patient Information Date Seen:: 08/09/17 Time Seen:: 12:45 Chief Complaint:: Poor Oral Intake History of Present Illness:: onset x 3 days of poor oral intake, failure to thrive, and weakness; no report of trauma, LOC, H/As, S/T, neck pain, C/P, SOB, Abd. Pain, A/N/V/D/C, fever, chills, or urinary s/s Allergies:: Allergies Allergy/AdvReac Type Severity Reaction Status Date / Time aspirin Allergy Verified 06/28/16 16:02 Penicillins Allergy Verified 06/28/16 16:02 Historian:: Patient, EMS Review:: Nurse's Note Reviewed, Old Chart Reviewed, EMS run form Reviewed ED Review of Systems - Review of Systems General/Constitutional: No fever, No chills, No weight loss, No weakness, No diaphoresis, No edema, No loss of appetite Skin: No skin lesions, No rash, No bruising Head: No headache, No light-headedness Eyes: No loss of vision, No pain, No diplopia ENT: No earache, No nasal drainage, No sore throat, No tinnitus Neck: No neck pain, No swelling, No thyromegaly, No stiffness, No mass noted Cardio Vascular: No chest pain, No palpitations, No PND, No orthopnea, No edema Pulmonary: No SOB, No cough, No sputum, No wheezing GI: No nausea, No vomiting, No diarrhea, No pain, No melena, No hematochezia, No constipation, No hematemesis G/U: No dysuria, No frequency, No hematuria, No nacturia Software Development 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: No vaginal discharge, No abnormal vaginal bleed, No contraction Musculoskeletal: Bone or joint pain, No back pain, No muscle pain Endocrine: No polyuria, No polydipsia Psychiatric: No prior psych history, No depression, No anxiety, No suicidal ideation, No homicidal ideation, No auditory hallucination, No visual hallucination Hematopoietic: No bruising, No lymphadenopathy Allergic/Immuno: No urticaria, No angioedema Neurological: No syncope, No focal symptoms, No weakness, No paresthesia, No headache, No seizure, No dizziness, Confusion, No vertigo ED Past Medical History - Past Medical History Obtainable: Yes Past Medical History: HTN, CAD, Dyslipidemia, Arthritis, Dementia Family History: Heart disease, HTN Social History: Non Smoker, No Alcohol, No Drug Use, , Care Facility Surgical History: None Psychiatricy History: Dementia Medication: Reviewed Family Medical History - Family Member Mother History Unknown: Yes Ethnicity: Unknown Living Status: Unknown Hx Family Cancer: (Unknown) Hx Family Coronary Artery Disease: (Unknown) Hx Family Congestive Heart Failure: (Unknown) Hx Family Hypertension: (Unknown) Hx Family Stroke: (Unknown) Hx Family Diabetes: (Unknown) Hx Family Seizures: (Unknown) Hx Family Dementia: (Unknown) Hx Family AIDS: (Unknown) Hx Family HIV: No Hx Family COPD: (Unknown) Hx Family Hepatitis: (Unknown) Hx Family Psychiatric Problems: (Unknown) Hx Family Tuberculosis: (Unknown) ED Physical Exam - Physical Examination General/Constitutional: Awake, Well-developed, well-nourished, Alert, No distress, GCS 15, Non-toxic appearing, Ambulatory Head: Atraumatic Eyes: Lids, conjuctiva normal, PERRL, EOMI Skin: Nl inspection, No rash, No skin lesions, No ecchymosis, Well hydrated, No lymphadenopathy ENMT: External ears, nose nl, TM canals nl, Nasal exam nl, Lips, teeth, gums nl , Oropharynx nl, Tonsils nl Neck: Nontender, Full ROM w/o pain, No JVD, No nuchal rigidity, No bruit, No mass, No stridor Respiratory: Nl effort/Exclusion, Clear to Auscultation, No Wheeze/Rhonchi/Rales Cardio Vascular: RRR, No murmur, gallop, rubs, NL S1 S2, Carotid/Femoral/Distal pulses equal bilaterally GI: No tenderness/rebounding/guarding, No organomegaly, No hernia, Normal BS's, Nondistended, No mass/bruits, No McBurney tenderness : No CVA tenderness Extremities: No tenderness or effusion, Full ROM, normal strength in all extremities, No edema, Normal digits & nails Neuro/Psych: DTR's symmetric, Normal sensory exam, Normal motor strength, Judgement/insight normal, Mood normal, Normal gait, No focal deficits Other Neuro/Psych comments:: Disoriented and Confused Misc: Normal back, No paraspinal tenderness ED Labs/Radiology/EKG Results - Lab Results Comments:: U/A: + Pyuria - Radiology Results Comments:: CXR: NAD - EKG Interpretations EKG Time:: 13:03 Rate & Rhythm: 55; SB Comments:: non-specific st-t changes ED Septic Shock - . Is Septic Shock (SBP<90, OR Lactate>4 mmol\L) present?: No ED Reassessment (Disposition) - Reassessment Reassessment Condition:: Improved - Diagnosis Diagnosis:: Dx: Poor Oral Intake; Dementia; Sepsis; UTI - Aftercare/Follow up Instructions Aftercare/Follow-Up Instructions:: Counseled pt regarding lab results/diagnosis & need follow up, Counseled pt & family regarding lab results/diagnosis & need follow up - Patient Disposition Discharge/Transfer:: Acute Care w/in this hosp Accepting Physician:: Dr. Hobbs Time Called:: [id number] Time Responded:: 14:30 Admitted to:: Med/Surg Spoke to:: Dr. Hobbs Admitting Medical Physician:: Dr. Hobbs Condition at Disposition:: Stable, Improved
[2017-08-09 13:20] LABS: % BASOPHILS 0.6 % (0.0-2.0); % EOSINOPHILS 2.3 % (0.0-5.0); % LYMPHOCYTES 29.7 % (20.0-50.0); % MONOCYTES 6.1 % (2.0-10.0); % NEUTROPHILS 61.3 % (40.0-80.0); EOSINOPHILE ABSOLUTE 0.2 Th/cmm (0.1-0.4); HEMATOCRIT 36.4 % (41.0-60); HEMOGLOBIN 12.1 gm/dL (12-16); MEAN CELL VOLUME 93.8 fl (81-100); MEAN CORPUSCULAR HGB CONC 33.1 pg (28.0-36.0); MEAN PLATELET VOLUME 7.8 fl; MONOCYTE ABSOLUTE 0.4 Th/cmm (0.3-1.0); NEUTROPHILE ABSOLUTE 4.2 Th/cmm (1.8-8.0); PLATELET COUNT 202 Th/cmm (150-400); RED BLOOD COUNT 3.88 Mil/cmm (3.80-5.20); RED CELL DISTRIBUTION WIDTH 12.8 % (11.5-20.0); WHITE BLOOD COUNT 6.8 Th/cmm (4.8-10.8)
[2017-08-09 13:30] LABS: INR 0.98 (0.5-1.4); PROTHROMBIN TIME (TEST) 10.2 SECONDS (9.5-11.5)
[2017-08-09 13:53] LABS: TROP I 0.01 ng/mL (0.01-0.05)
[2017-08-09 14:04] LABS: URINE BILIRUBIN NEGATIVE (NEGATIVE); URINE BLOOD SMALL (NEGATIVE); URINE GLUCOSE (UA) NEGATIVE (NEGATIVE); URINE KETONE NEGATIVE (NEGATIVE); URINE LEUKOCYTE ESTERASE LARGE (NEGATIVE); URINE MICROSCOPIC INDICATED? YES; URINE NITRATE NEGATIVE (NEGATIVE); URINE PH 7.5 (4.6 - 8.0); URINE PROTEIN NEGATIVE (NEGATIVE); URINE SOURCE MIDSTREAM; URINE UROBILINOGEN 0.2 E.U./dL (0.2 - 1.0)
--- NOTE | 2017-08-09 14:05 | Diagnostic Imaging Report ---
CHEST X-RAY: AP view INDICATION: pain COMPARISON: 06/29/2016 FINDINGS: There is no focal consolidation or pleural effusions. Cardiomegaly is noted with atherosclerosis. Degenerative changes of the spine are noted. IMPRESSION: No focal consolidation identified Cardiomegaly and atherosclerotic vascular disease.
[2017-08-09 14:15] LABS: URINE CLARITY HAZY (CLEAR); URINE COLOR YELLOW
[2017-08-09 14:17] LABS: URINE BACTERIA FEW /hpf (NONE SEEN); URINE EPITHELIAL CELLS FEW /lpf (FEW); URINE WBC >100 /hpf (0-5)
[2017-08-09 16:25] LABS: CHLORIDE 106 mEq/L (98-107); POTASSIUM SERUM 4.4 mEq/L (3.5-5.1); SODIUM SERUM 139 mEq/L (136-145)
[2017-08-09 16:26] LABS: ALBUMIN 3.4 gm/dL (3.7-5.3); ANION GAP 16.4 (7.0-16.0); BILIRUBIN,TOTAL 0.5 mg/dL (0.3-1.0); BUN - UREA NITROGEN 17 mg/dL (7-25); CALCIUM SERUM 9.7 mg/dL (8.6-10.3); CREATININE - SERUM 0.8 mg/dL (0.6-1.2); GLUCOSE 92 mg/dL (70-105); SGOT 23 U/L (13-39); SGPT/ALT 19 U/L (7-52); TOTAL PROTEIN,SERUM 6.8 gm/dL (6.0-8.3)
[2017-08-09 16:27] LABS: ALKALINE PHOSPHATASE 100 U/L (34-104); CREATININE KINASE 42 U/L (30-223)
[2017-08-09] MEDS ORDERED: Levofloxacin 500mg/100mL 500 MG/100 ML BAG IV ONE ×2 (17:00→17:14)
[2017-08-09] MEDS: D5-0.45NS 1,000 ML IV SCH (21:48)
[2017-08-09] MEDS ORDERED: Maalox 30 mL Cup PO PRN (22:41)
[2017-08-09] MEDS ORDERED: Acetaminophen 500 MG TAB PO PRN (22:41)
[2017-08-09 23:03] VITALS: BP 155/44
[2017-08-10 07:20] LABS: % BASOPHILS 0.4 % (0.0-2.0); % EOSINOPHILS 4.2 % (0.0-5.0); % LYMPHOCYTES 36.7 % (20.0-50.0); % MONOCYTES 7.7 % (2.0-10.0); EOSINOPHILE ABSOLUTE 0.2 Th/cmm (0.1-0.4); HEMATOCRIT 34.7 % (41.0-60); HEMOGLOBIN 11.7 gm/dL (12-16); LYMPHOCYTE ABSOLUTE 1.8 Th/cmm (1.5-3.0); MEAN CELL VOLUME 93.5 fl (81-100); MEAN CORPUSCULAR HEMOGLOBIN 31.5 pg (27.0-31.0); MEAN CORPUSCULAR HGB CONC 33.7 pg (28.0-36.0); MEAN PLATELET VOLUME 7.7 fl; MONOCYTE ABSOLUTE 0.4 Th/cmm (0.3-1.0); NEUTROPHILE ABSOLUTE 2.5 Th/cmm (1.8-8.0); PLATELET COUNT 186 Th/cmm (150-400); RED BLOOD COUNT 3.71 Mil/cmm (3.80-5.20); RED CELL DISTRIBUTION WIDTH 12.6 % (11.5-20.0)
[2017-08-10 07:28] LABS: WHITE BLOOD COUNT 4.9 Th/cmm (4.8-10.8)
[2017-08-10 07:43] LABS: ANION GAP 9.3 (7.0-16.0); BUN - UREA NITROGEN 15 mg/dL (7-25); CALCIUM SERUM 9.4 mg/dL (8.6-10.3); CARBON DIOXIDE 26.6 mEq/L (21.0-31.0); CHLORIDE 107 mEq/L (98-107); CHOLESTEROL 136 mg/dL (<200); CREATININE - SERUM 0.8 mg/dL (0.6-1.2); GLUCOSE 96 mg/dL (70-105); HDL -HIGH DENSITY LIPOPROTEIN 35 mg/dL (23-92); POTASSIUM SERUM 3.9 mEq/L (3.5-5.1); SODIUM SERUM 139 mEq/L (136-145); TRIGLYCERIDES 108 mg/dL (<150)
[2017-08-10] MEDS: Multivitamin Tab PO SCH (09:01)
--- NOTE | 2017-08-10 11:02 | Consultation ---
Consult Note - Consult Note Service Date: 08/10/17 Referring Physician: Deon Hobbs Consult Note: PHYSICIAN Consultation Note: Date of Admission: 08/09/17 Purpose of Consultation: UTI. Chief Complaint: Patient GRADY SR was admitted to location Medical/ Surgical Unit I with URINARY TRACT INFECTION, SEPSIS. History of Present Illness:82-year-old female with a past medical history of hypertension, Coronary artery disease, dyslipidemia, arthritis, dementia was brought to the ER for poor oral intake, failure to thrive and generalized weakness. Patient has no evidence of fever, cough or shortness of breath. On initial evaluation, her temperature 97.7F and WBC count 6800. Urinalysis showed pyuria and bacteriuria. Patient was given Levaquin 1 dose and ID consult was called for antibiotic management. As per family, she had refused taking food. She had been laughing most of time. Past Medical History: hypertension, Coronary artery disease, dyslipidemia, arthritis, dementia . Allergies Allergy/AdvReac Type Severity Reaction Status Date / Time aspirin Allergy Verified 06/28/16 16:02 Penicillins Allergy Verified 06/28/16 16:02 Vital Signs Temp 97.6 F 08/10/17 04:00 Pulse 51 08/10/17 09:00 Resp 18 08/10/17 04:00 BP 165/69 08/10/17 09:00 Pulse Ox 74 08/10/17 04:00 Intake & Output 08/09/17 08/10/17 08/10/17 18:59 06:59 18:59 Weight (lbs) 75.523 kg Other: # Voids 3 Weight Source Bedscale Laboratory Results - last 24 hr 08/10/17 08/10/17 08/10/17 06:12 06:12 06:12 WBC 4.9 D RBC 3.71 L Hgb 11.7 L Hct 34.7 L MCV 93.5 MCH 31.5 H MCHC Differential 33.7 RDW 12.6 Plt Count 186 MPV 7.7 Neutrophils % 51.0 Lymphocytes % 36.7 Monocytes % 7.7 Eosinophils % 4.2 Basophils % 0.4 Sodium 139 Potassium 3.9 Chloride 107 Carbon Dioxide 26.6 Anion Gap 9.3 BUN 15 Creatinine 0.8 Est GFR ( Amer) TNP Est GFR (Non-Af Amer) TNP BUN/Creatinine Ratio 18.8 Glucose 96 Calcium 9.4 Triglycerides 108 Cholesterol 136 LDL Cholesterol Direct 85 HDL Cholesterol 35 TSH 5.61 H Home Medication Medication Instructions Recorded Type Al Hyd/Mg Hyd/Simethicone [Maalox] 30 ml PO Q4HR PRN #0 udc 07/20/16 Rx Atorvastatin Calcium [Lipitor] 10 mg PO HS #0 07/20/16 Rx Docusate Sodium 100 mg PO DAILY #0 07/20/16 Rx Donepezil Hcl [Aricept] 10 mg PO DAILY #0 07/20/16 Rx Folic Acid [Folate*] 1 mg PO DAILY #0 07/20/16 Rx Isosorbide Dinitrate [Isordil 5 mg PO TID #0 07/20/16 Rx Titradose] Memantine HCl [Namenda] 10 mg PO BID #0 07/20/16 Rx Multivitamin [Theragran] 1 tab PO DAILY #0 tab 07/20/16 Rx Nitroglycerin [Nitroglycerin*] 0.4 mg SL Q5MIN PRN #0 MDD 3 07/20/16 Rx Acetaminophen [Tylenol Extra 2 tab PO Q4HR PRN 08/09/17 History Strength] Acetaminophen [Tylenol] 650 mg PO Q4HR PRN 08/09/17 History Escitalopram Oxalate [Lexapro] 5 mg PO HS 08/09/17 History Current Medications Generic Name Dose Route Start Last Admin Trade Name Freq PRN Reason Stop Dose Admin Acetaminophen 650 mg 08/09/17 22:41 Tylenol PO 10/08/17 22:40 Q4HR PRN Fever > 101 or mild pain Acetaminophen 1,000 mg 08/09/17 22:41 Tylenol Extra Strength PO 10/08/17 22:40 Q4HR PRN moderate pain Al Hydrox/Mg Hydrox/Simethicone 30 ml 08/09/17 22:41 Maalox PO 10/08/17 22:40 Q4HR PRN GI DISTRESS Atorvastatin Calcium 10 mg 08/10/17 21:00 Lipitor PO 10/09/17 20:59 HS [facility] Protocol Docusate Sodium 100 mg 08/10/17 09:00 08/10/17 09:01 Colace PO 10/09/17 08:59 100 mg DAILY CHARISSA Administration Donepezil HCl 10 mg 08/10/17 09:00 08/10/17 09:01 Aricept PO 10/09/17 08:59 10 mg DAILY CHARISSA Administration Escitalopram Oxalate 5 mg 08/10/17 21:00 Lexapro PO 10/09/17 20:59 HS CHARISSA Protocol Folic Acid 1 mg 08/10/17 09:00 08/10/17 09:01 Folate PO 10/09/17 08:59 1 mg DAILY CHARISSA Administration Dextrose/Sodium Chloride 1,000 mls @ 50 mls/hr 08/09/17 21:45 08/09/17 21:48 D5-0.45ns IV 10/08/17 21:44 50 mls/hr .Q20H CHARISSA Administration Isosorbide Dinitrate 5 mg 08/10/17 09:00 08/10/17 09:00 Isordil PO 10/09/17 08:59 5 mg TID CHARISSA Administration Memantine 10 mg 08/10/17 09:00 08/10/17 09:01 Namenda PO 10/09/17 08:59 10 mg BID CHARISSA Administration Multivitamins/Vitamin C 1 tab 08/10/17 09:00 08/10/17 09:01 Theragran PO 10/09/17 08:59 1 tab DAILY CHARISSA Administration Nitroglycerin 0.4 mg 08/09/17 22:41 Nitrostat SL 10/08/17 22:40 Q5MIN PRN Chest Pain Review of Systems: A 12 point ROS was reviewed with the pertinent positive and negatives noted in the HPI. Social History Smoking Status Unknown if ever smoked Drug Use No Alcohol Use No Family Medical History Family Medical History Start: 08/09/17 20: 27 Freq: ONCE Status: Active Document 08/09/17 20:27 HANNA (Rec: 08/10/17 00:23 HANNA [id number]) Family Medical History Mother History Unknown Yes Other Medical History Pt is confused and aphasic Physical Exam: General: A febrile, not in acute distress. HEENT: Head: Normocephalic, atraumatic. Oral cavity: Moist, pink tongue. Eyes pallor is present. No icterus. Pupil PERRLA. EOMI. Neck: Upper, no JVD. No carotid bruit. No use of X his neck muscles. Cardio: S1 and S2 within normal limits regular rhythm no murmur or gallop. Respiratory: Vesicular breath sound no crackles, no wheezing. Abdominal: Soft, nontender, nondistended bowel sounds present. Genital/Urinary: Deferred Extremities: No cyanosis no clubbing no edema. Neurological: alert, but laughing most of the time. Assessment: 1. UTI. 2. Dementia. 3. Hypertension. 4. Coronary artery disease. 5. Refusal to eat food, Depression. Plan: start Cipro. Psych consult. Thank you, Dr Hobbs for involving me in taking care of this patient. Signed, Sandoval Garza M.D. [id number]/10/[id number]
--- NOTE | 2017-08-10 11:20 | History & Physical ---
ADMIT DATE: 08/10/2017 CHIEF COMPLAINT: Poor oral intake. HISTORY OF PRESENT ILLNESS: This is an 82-year-old female who was sent in to [facility] for further evaluation due to poor oral intake for the past 3 days. REVIEW OF SYSTEMS: GENERAL: This is an 82-year-old female that appears as stated, no fever, no chills. HEENT: Head, no headache. No dizziness. Eyes, no eye pain, no blurring of vision. NECK: No neck pain, no nuchal rigidity. No chest pain, no palpitation. PULMONARY: No coughing. No shortness of breath. GASTROINTESTINAL: No constipation, no abdominal pain, no diarrhea. MUSCULOSKELETAL: No joint pain. No muscle pain. SOCIAL HISTORY: The patient lives in a jail facility prior to hospitalization. PAST MEDICAL HISTORY: Includes hypertension, coronary artery disease, hyperlipidemia, and osteoarthritis. PSYCHIATRIC HISTORY: Includes dementia. FAMILY HISTORY: Unremarkable. PAST SURGICAL HISTORY: Unremarkable. PHYSICAL EXAMINATION: VITAL SIGNS: Temperature 97.6, heart rate of 97, blood pressure 120/60, respiration of 18, and O2 saturation 98% on room air. HEENT: Head is atraumatic, normocephalic. Eyes, bilateral conjunctivae are clear. Bilateral pupils are equally round and reactive. NECK: Supple. No JVD. CARDIOVASCULAR: S1 and S2, without murmur. LUNGS: Clear to auscultation. GASTROINTESTINAL: Soft and nontender without guarding. Positive bowel sounds. MUSCULOSKELETAL: No clubbing. No cyanosis noted. ASSESSMENT: 1. Poor oral intake. 2. Dehydration. 3. Dementia. 4. Osteoarthritis. 5. Anemia. 6. Hypertension. PLAN: We will continue current treatment. We will follow up with ID doctor, for possible urinary tract infection. We will do medication reconciliation accordingly and we will admit the patient to Med-Surg unit. Treatment plans were discussed with the patient's nurse. Treatment plans were discussed with Dr. Hobbs. JOB# [id number]
[2017-08-10] MEDS ORDERED: VTE Chemical Prophylaxis Screen/Admission MC PRN (12:18)
[2017-08-10] MEDS: Atorvastatin Calcium 10 MG TAB PO SCH (20:54)
[2017-08-11] MEDS: D5-0.45NS 1,000 ML IV SCH ×2 (00:52→20:42)
[2017-08-11] MEDS: Multivitamin Tab PO SCH (09:40)
--- NOTE | 2017-08-11 09:48 | Diagnostic Imaging Report ---
CT scan of the brain without intravenous contrast HISTORY: Confusion Total DLP equals 629 CTDI equals 35.7 Axial sections were obtained from the base of the skull to the vertex. There is prominence/enlargement of the ventricular system size. Associated enlargement of cerebral sulci and subarachnoid cisterns. Findings are consistent with changes of generalized cerebral atrophy. No acute parenchymal abnormalities. No acute cerebral hemorrhage. Hypodensity is seen within the supratentorial white matter regions without mass effect. The findings may be associated with chronic small vessel ischemic disease. No extra-axial masses or abnormal fluid collections. IMPRESSION: 1. No acute abnormalities 2. Cerebral atrophy 3. Supratentorial white matter changes that may reflect chronic small vessel ischemic disease
--- NOTE | 2017-08-11 11:36 | General Progress Note ---
Subjective - Review of Systems Events since last encounter: patient in no acute distress on antibiotics tolerating well Objective - Results Result Diagrams: 08/10/17 06:12 08/10/17 06:12 Recent Labs: Laboratory Last Values WBC 4.9 Th/cmm (4.8-10.8) D 08/10/17 06:12 RBC 3.71 Mil/cmm (3.80-5.20) L 08/10/17 06:12 Hgb 11.7 gm/dL (12-16) L 08/10/17 06:12 Hct 34.7 % (41.0-60) L 08/10/17 06:12 MCV 93.5 fl (81-100) 08/10/17 06:12 MCH 31.5 pg (27.0-31.0) H 08/10/17 06:12 MCHC Differential 33.7 pg (28.0-36.0) 08/10/17 06:12 RDW 12.6 % (11.5-20.0) 08/10/17 06:12 Plt Count 186 Th/cmm (150-400) 08/10/17 06:12 MPV 7.7 fl 08/10/17 06:12 Neutrophils % 51.0 % (40.0-80.0) 08/10/17 06:12 Lymphocytes % 36.7 % (20.0-50.0) 08/10/17 06:12 Monocytes % 7.7 % (2.0-10.0) 08/10/17 06:12 Eosinophils % 4.2 % (0.0-5.0) 08/10/17 06:12 Basophils % 0.4 % (0.0-2.0) 08/10/17 06:12 PT 10.2 SECONDS (9.5-11.5) 08/09/17 12:50 INR 0.98 (0.5-1.4) 08/09/17 12:50 PTT (Actin FS) 24.4 SECONDS (26.0-38.0) L 08/09/17 12:50 Sodium 139 mEq/L (136-145) 08/10/17 06:12 Potassium 3.9 mEq/L (3.5-5.1) 08/10/17 06:12 Chloride 107 mEq/L (98-107) 08/10/17 06:12 Carbon Dioxide 26.6 mEq/L (21.0-31.0) 08/10/17 06:12 Anion Gap 9.3 (7.0-16.0) 08/10/17 06:12 BUN 15 mg/dL (7-25) 08/10/17 06:12 Creatinine 0.8 mg/dL (0.6-1.2) 08/10/17 06:12 Est GFR ( Amer) TNP 08/10/17 06:12 Est GFR (Non-Af Amer) TNP 08/10/17 06:12 BUN/Creatinine Ratio 18.8 08/10/17 06:12 Glucose 96 mg/dL (70-105) 08/10/17 06:12 Whole Bld Lactic Acid 1.30 mmol/L (0.60-1.99) 08/09/17 12:50 Calcium 9.4 mg/dL (8.6-10.3) 08/10/17 06:12 Total Bilirubin 0.5 mg/dL (0.3-1.0) 08/09/17 12:50 AST 23 U/L (13-39) 08/09/17 12:50 ALT 19 U/L (7-52) 08/09/17 12:50 Alkaline Phosphatase 100 U/L (34-104) 08/09/17 12:50 Creatine Kinase 42 U/L (30-223) 08/09/17 12:50 Troponin I 0.01 ng/mL (0.01-0.05) 08/09/17 12:50 Total Protein 6.8 gm/dL (6.0-8.3) 08/09/17 12:50 Albumin 3.4 gm/dL (3.7-5.3) L 08/09/17 12:50 Globulin 3.4 gm/dL 08/09/17 12:50 Albumin/Globulin Ratio 1.0 (1.0-1.8) 08/09/17 12:50 Triglycerides 108 mg/dL (<150) 08/10/17 06:12 Cholesterol 136 mg/dL (<200) 08/10/17 06:12 LDL Cholesterol Direct 85 mg/dL (75-193) 08/10/17 06:12 HDL Cholesterol 35 mg/dL (23-92) 08/10/17 06:12 TSH 5.61 uIU/ml (0.34-5.60) H 08/10/17 06:12 Urine Source MIDSTREAM 08/09/17 12:54 Urine Color YELLOW 08/09/17 12:54 Urine Clarity HAZY (CLEAR) 08/09/17 12:54 Urine pH 7.5 (4.6 - 8.0) 08/09/17 12:54 Ur Specific [place] 1.015 (1.005-1.030) 08/09/17 12:54 Urine Protein NEGATIVE mg/dL (NEGATIVE) 08/09/17 12:54 Urine Glucose (UA) NEGATIVE mg/dL (NEGATIVE) 08/09/17 12:54 Urine Ketones NEGATIVE mg/dL (NEGATIVE) 08/09/17 12:54 Urine Blood SMALL (NEGATIVE) H 08/09/17 12:54 Urine Nitrate NEGATIVE (NEGATIVE) 08/09/17 12:54 Urine Bilirubin NEGATIVE (NEGATIVE) 08/09/17 12:54 Urine Urobilinogen 0.2 E.U./dL (0.2 - 1.0) 08/09/17 12:54 Ur Leukocyte Esterase LARGE (NEGATIVE) H 08/09/17 12:54 Urine RBC 2-5 /hpf (0-5) 08/09/17 12:54 Urine WBC >100 /hpf (0-5) H 08/09/17 12:54 Ur Epithelial Cells FEW /lpf (FEW) 08/09/17 12:54 Urine Bacteria FEW /hpf (NONE SEEN) 08/09/17 12:54 - Physical Exam Vitals and I&O: Vital Signs Temp 97.9 F 08/11/17 07:46 Pulse 53 08/11/17 09:40 Resp 18 08/11/17 08:00 BP 132/62 08/11/17 09:40 Pulse Ox 100 08/11/17 07:46 Intake & Output 08/10/17 08/11/17 08/11/17 18:59 06:59 18:59 Intake Total 1400 Balance 1400 Weight (lbs) 75.432 kg 74.389 kg Intake: Intake, IV Amount 1000 D5-0.45NS 1,000 ml @ 50 1000 mls/hr IV .Q20H CHARISSA Rx#: [id number] Oral 400 Other: # Voids 3 3 # Bowel Movements 1 2 Stool Characteristics Soft Weight Source Bedscale Bedscale Active Medications: Current Medications Acetaminophen (Tylenol) 650 mg PO Q4HR PRN PRN Reason: Fever > 101 or mild pain Stop: 10/08/17 22:40 Acetaminophen (Tylenol Extra Strength) 1,000 mg PO Q4HR PRN PRN Reason: moderate pain Stop: 10/08/17 22:40 Al Hydrox/Mg Hydrox/Simethicone (Maalox) 30 ml PO Q4HR PRN PRN Reason: GI DISTRESS Stop: 10/08/17 22:40 Atorvastatin Calcium (Lipitor) 10 mg PO HS CHARISSA PRN Reason: Protocol Stop: 10/09/17 20:59 Last Admin: 08/10/17 20:54 Dose: 10 mg Ciprofloxacin (Cipro) 250 mg PO Q12H CHARISSA Stop: 10/09/17 11:59 Last Admin: 08/11/17 00:53 Dose: 250 mg Docusate Sodium (Colace) 100 mg PO DAILY CHARISSA Stop: 10/09/17 08:59 Last Admin: 08/11/17 09:41 Dose: 100 mg Donepezil HCl (Aricept) 10 mg PO DAILY CHARISSA Stop: 10/09/17 08:59 Last Admin: 08/11/17 09:40 Dose: 10 mg Escitalopram Oxalate (Lexapro) 5 mg PO HS CHARISSA PRN Reason: Protocol Stop: 10/09/17 20:59 Folic Acid (Folate) [address] [facility] Stop: 10/09/17 08:59 Last Admin: 08/11/17 09:40 Dose: 1 mg Heparin Sodium (Porcine) (Heparin) 5,000 units SUBQ Q12HR CHARISSA Stop: 10/09/17 20:59 Last Admin: 08/11/17 09:40 Dose: 5,000 units Dextrose/Sodium Chloride (D5-0.45ns) 1,000 mls @ 50 mls/hr IV .Q20H CHARISSA Stop: 10/08/17 21:44 Last Admin: 08/11/17 00:52 Dose: 50 mls/hr Isosorbide Dinitrate (Isordil) 5 mg PO TID CHARISSA Stop: 10/09/17 08:59 Last Admin: 08/11/17 09:40 Dose: 5 mg Memantine (Namenda) 10 mg PO BID CHARISSA Stop: 10/09/17 08:59 Last Admin: 08/11/17 09:40 Dose: 10 mg Miscellaneous (Vte Chemical Prophylaxis Screen/ Admission) 1 ea [facility] PRN PRN PRN Reason: PROTOCOL Stop: 10/09/17 12:17 Multivitamins/Vitamin C (Theragran) 1 tab PO DAILY CHARISSA Stop: 10/09/17 08:59 Last Admin: 08/11/17 09:40 Dose: 1 tab Nitroglycerin (Nitrostat) 0.4 mg SL Q5MIN PRN PRN Reason: Chest Pain Stop: 10/08/17 22:40 Nutritional Asmnt/Malnutr-PDOC - Dietary Evaluation Malnutrition Findings (Please click <Entered> for more info): Nutritional Asmnt/Malnutrition Start: 08/10/17 15: 45 Text: Status: Complete Freq: Document 08/10/17 15:45 MARY (Rec: 08/10/17 15:58 LCHENG [id number]) Nutritional Asmnt/Malnutrition Patient General Information Nutritional Screening High Risk Diagnosis UTI, sepsis Pertinent Medical Hx/Surgical Hx HTN, CAD, hydlipidemia, arthritis, dementia Subjective Information Per H&P, pt had poor oral intake for 3 days. Per nurse note, MD ordered low sodium diet for pt. Pt also have a swallow eval ordered noted. RN will monitor pt to eat. pt seen resting in bed at time of visit, non verbal noted. Current Diet Order/ Nutrition Support low sodium Pertinent Medications D5-0.45ns, colace, folate, theragran Pertinent Labs 4/7 nutrition labs WNL 4/6 Alb 3.4 Nutritional Hx/Data Height 1.47 m Height (Calculated Centimeters) 147.3 Current Weight (lbs) 75.523 kg Weight (Calculated Kilograms) 75.5 Weight (Calculated Grams) 48418.1 [place] Body Weight 96 Body Mass Index (BMI) 34.7 Weight Status Obese GI Symptoms GI Symptoms None Last BM no record Skin Integrity/Comment: Redness/bruises under left breast (chest area) Estimated Nutritional Goals BEE in Kcals: Adj wt of IBW Calories/Kcals/Kg 25-30 Kcals Calculated [id number] Protein: Adj wt of IBW Protein g/k.1-1.3 Protein Calculated 57-68 Fluid: ml 1300-1560ml (1ml/kcal) Nutritional Problem 1. Problem Problem increased nutrition needs Etiology increased metabolic demand Signs/Symptoms: dx of sepsis Intervention/Recommendation Comments 1. Continue with low sodium diet as ordered. Nurse to monitor pt eat. If needed, change diet per ST recommend after swallow eval. 2. Monitor PO intake, wt, labs and skin integrity 3. F/U as high risk in 2-3 days, 08/12-08/13 Expected Outcomes/Goals Expected Outcomes/Goals 1. PO intake to meet at least 75% of nutritional needs. 2. Wt stability, skin to remain intact, labs to approach WNL.
[2017-08-11] MEDS: Atorvastatin Calcium 10 MG TAB PO SCH (20:28)
--- NOTE | 2017-08-11 23:12 | Infectious Disease Prog Note ---
Infectious Disease Subjective - Review of Systems Service Date: 08/11/17 Subjective: There is no new change, no fever. Infectious Disease Objective - Results Result Diagrams: 08/10/17 06:12 08/10/17 06:12 Recent Labs: Laboratory Last Values WBC 4.9 Th/cmm (4.8-10.8) D 08/10/17 06:12 RBC 3.71 Mil/cmm (3.80-5.20) L 08/10/17 06:12 Hgb 11.7 gm/dL (12-16) L 08/10/17 06:12 Hct 34.7 % (41.0-60) L 08/10/17 06:12 MCV 93.5 fl (81-100) 08/10/17 06:12 MCH 31.5 pg (27.0-31.0) H 08/10/17 06:12 MCHC Differential 33.7 pg (28.0-36.0) 08/10/17 06:12 RDW 12.6 % (11.5-20.0) 08/10/17 06:12 Plt Count 186 Th/cmm (150-400) 08/10/17 06:12 MPV 7.7 fl 08/10/17 06:12 Neutrophils % 51.0 % (40.0-80.0) 08/10/17 06:12 Lymphocytes % 36.7 % (20.0-50.0) 08/10/17 06:12 Monocytes % 7.7 % (2.0-10.0) 08/10/17 06:12 Eosinophils % 4.2 % (0.0-5.0) 08/10/17 06:12 Basophils % 0.4 % (0.0-2.0) 08/10/17 06:12 PT 10.2 SECONDS (9.5-11.5) 08/09/17 12:50 INR 0.98 (0.5-1.4) 08/09/17 12:50 PTT (Actin FS) 24.4 SECONDS (26.0-38.0) L 08/09/17 12:50 Sodium 139 mEq/L (136-145) 08/10/17 06:12 Potassium 3.9 mEq/L (3.5-5.1) 08/10/17 06:12 Chloride 107 mEq/L (98-107) 08/10/17 06:12 Carbon Dioxide 26.6 mEq/L (21.0-31.0) 08/10/17 06:12 Anion Gap 9.3 (7.0-16.0) 08/10/17 06:12 BUN 15 mg/dL (7-25) 08/10/17 06:12 Creatinine 0.8 mg/dL (0.6-1.2) 08/10/17 06:12 Est GFR ( Amer) TNP 08/10/17 06:12 Est GFR (Non-Af Amer) TNP 08/10/17 06:12 BUN/Creatinine Ratio 18.8 08/10/17 06:12 Glucose 96 mg/dL (70-105) 08/10/17 06:12 Whole Bld Lactic Acid 1.30 mmol/L (0.60-1.99) 08/09/17 12:50 Calcium 9.4 mg/dL (8.6-10.3) 08/10/17 06:12 Total Bilirubin 0.5 mg/dL (0.3-1.0) 08/09/17 12:50 AST 23 U/L (13-39) 08/09/17 12:50 ALT 19 U/L (7-52) 08/09/17 12:50 Alkaline Phosphatase 100 U/L (34-104) 08/09/17 12:50 Creatine Kinase 42 U/L (30-223) 08/09/17 12:50 Troponin I 0.01 ng/mL (0.01-0.05) 08/09/17 12:50 Total Protein 6.8 gm/dL (6.0-8.3) 08/09/17 12:50 Albumin 3.4 gm/dL (3.7-5.3) L 08/09/17 12:50 Globulin 3.4 gm/dL 08/09/17 12:50 Albumin/Globulin Ratio 1.0 (1.0-1.8) 08/09/17 12:50 Triglycerides 108 mg/dL (<150) 08/10/17 06:12 Cholesterol 136 mg/dL (<200) 08/10/17 06:12 LDL Cholesterol Direct 85 mg/dL (75-193) 08/10/17 06:12 HDL Cholesterol 35 mg/dL (23-92) 08/10/17 06:12 TSH 5.61 uIU/ml (0.34-5.60) H 08/10/17 06:12 Urine Source MIDSTREAM 08/09/17 12:54 Urine Color YELLOW 08/09/17 12:54 Urine Clarity HAZY (CLEAR) 08/09/17 12:54 Urine pH 7.5 (4.6 - 8.0) 08/09/17 12:54 Ur Specific [place] 1.015 (1.005-1.030) 08/09/17 12:54 Urine Protein NEGATIVE mg/dL (NEGATIVE) 08/09/17 12:54 Urine Glucose (UA) NEGATIVE mg/dL (NEGATIVE) 08/09/17 12:54 Urine Ketones NEGATIVE mg/dL (NEGATIVE) 08/09/17 12:54 Urine Blood SMALL (NEGATIVE) H 08/09/17 12:54 Urine Nitrate NEGATIVE (NEGATIVE) 08/09/17 12:54 Urine Bilirubin NEGATIVE (NEGATIVE) 08/09/17 12:54 Urine Urobilinogen 0.2 E.U./dL (0.2 - 1.0) 08/09/17 12:54 Ur Leukocyte Esterase LARGE (NEGATIVE) H 08/09/17 12:54 Urine RBC 2-5 /hpf (0-5) 08/09/17 12:54 Urine WBC >100 /hpf (0-5) H 08/09/17 12:54 Ur Epithelial Cells FEW /lpf (FEW) 08/09/17 12:54 Urine Bacteria FEW /hpf (NONE SEEN) 08/09/17 12:54 - Physical Exam Vitals and I&O: Vital Signs Temp 99.2 F 08/11/17 20:00 Pulse 61 08/11/17 20:28 Resp 18 08/11/17 20:00 BP 113/50 08/11/17 20:28 Pulse Ox 97 08/11/17 20:00 Intake & Output 08/11/17 08/11/17 08/12/17 06:59 18:59 06:59 Intake Total 1541.667 Balance 1541.667 Weight (lbs) 74.389 kg 74.389 kg Intake: Intake, IV Amount 991.667 D5-0.45NS 1,000 ml @ 50 991.667 mls/hr IV .Q20H CHARISSA Rx#: [id number] Oral 550 Other: # Voids 3 3 # Bowel Movements 2 1 Stool Characteristics Soft Weight Source Bedscale Bedscale Active Medications: Current Medications Acetaminophen (Tylenol) 650 mg PO Q4HR PRN PRN Reason: Fever > 101 or mild pain Stop: 10/08/17 22:40 Acetaminophen (Tylenol Extra Strength) 1,000 mg PO Q4HR PRN PRN Reason: moderate pain Stop: 10/08/17 22:40 Al Hydrox/Mg Hydrox/Simethicone (Maalox) 30 ml PO Q4HR PRN PRN Reason: GI DISTRESS Stop: 10/08/17 22:40 Atorvastatin Calcium (Lipitor) 10 mg PO HS [facility] PRN Reason: Protocol Stop: 10/09/17 20:59 Last Admin: 08/11/17 20:28 Dose: 10 mg Ciprofloxacin (Cipro) 250 mg PO Q12H [facility] Stop: 10/09/17 11:59 Last Admin: 08/11/17 23:04 Dose: 250 mg Docusate Sodium (Colace) 100 mg PO DAILY [facility] Stop: 10/09/17 08:59 Last Admin: 08/11/17 09:41 Dose: 100 mg Donepezil HCl (Aricept) 10 mg PO DAILY [facility] Stop: 10/09/17 08:59 Last Admin: 08/11/17 09:40 Dose: 10 mg Escitalopram Oxalate (Lexapro) 5 mg PO [facility] PRN Reason: Protocol Stop: 10/09/17 20:59 Folic Acid (Folate) 1 mg PO DAILY [facility] Stop: 10/09/17 08:59 Last Admin: 08/11/17 09:40 Dose: 1 mg Heparin Sodium (Porcine) (Heparin) 5,000 units SUBQ Q12HR [facility] Stop: 10/09/17 20:59 Last Admin: 08/11/17 20:29 Dose: 5,000 units Dextrose/Sodium Chloride (D5-0.45ns) 1,000 mls @ 50 mls/hr IV .Q20H [facility] Stop: 10/08/17 21:44 Last Admin: 08/11/17 20:42 Dose: 50 mls/hr Isosorbide Dinitrate (Isordil) 5 mg PO TID [facility] Stop: 10/09/17 08:59 Last Admin: 08/11/17 20:28 Dose: Not Given Memantine (Namenda) 10 mg PO BID [facility] Stop: 10/09/17 08:59 Last Admin: 08/11/17 16:08 Dose: 10 mg Miscellaneous (Vte Chemical Prophylaxis Screen/ Admission) 1 ea [facility] PRN PRN PRN Reason: PROTOCOL Stop: 10/09/17 12:17 Multivitamins/Vitamin C (Theragran) 1 tab PO DAILY [facility] Stop: 10/09/17 08:59 Last Admin: 08/11/17 09:40 Dose: 1 tab Nitroglycerin (Nitrostat) 0.4 mg SL Q5MIN PRN PRN Reason: Chest Pain Stop: 10/08/17 22:40 General: no acute distress, well developed, well nourished HEENT: atraumatic, normocephalic, PERRLA Neck: supple, no thyromegaly Cardiovascular: S1S2, regular Lungs: clear to auscultation bilaterally, clear to percussion Abdomen: soft, bowel sounds, no tender, no distended Extremities: no cyanosis, no clubbing, no edema Neurological: awake, alert, oriented Skin: intact Infectious Disease Assmt/Plan - Assessment Assessment: 1. UTI. 2. Dementia. 3. Hypertension. 4. Coronary artery disease. 5. Refusal to eat food, Depression. - Plan Plan: Continue same treatment plan. Nutritional Asmnt/Malnutr-PDOC - Dietary Evaluation Malnutrition Findings (Please click <Entered> for more info): Nutritional Asmnt/Malnutrition Start: 08/10/17 15: 45 Text: Status: Complete Freq: Document 08/10/17 15:45 HEN (Rec: 08/10/17 15:58 [email or web address] Nutritional Asmnt/Malnutrition Patient General Information Nutritional Screening High Risk Diagnosis UTI, sepsis Pertinent Medical Hx/Surgical Hx HTN, CAD, hydlipidemia, arthritis, dementia Subjective Information Per H&P, pt had poor oral intake for 3 days. Per nurse note, MD ordered low sodium diet for pt. Pt also have a swallow eval ordered noted. RN will monitor pt to eat. pt seen resting in bed at time of visit, non verbal noted. Current Diet Order/ Nutrition Support low sodium Pertinent Medications D5-0.45ns, colace, folate, theragran Pertinent Labs 08/10 nutrition labs WNL / Alb 3.4 Nutritional Hx/Data Height 1.47 m Height (Calculated Centimeters) 147.3 Current Weight (lbs) 75.523 kg Weight (Calculated Kilograms) 75.5 Weight (Calculated Grams) 94782.1 [place] Body Weight 96 Body Mass Index (BMI) 34.7 Weight Status Obese GI Symptoms GI Symptoms None Last BM no record Skin Integrity/Comment: Redness/bruises under left breast (chest area) Estimated Nutritional Goals BEE in Kcals: Adj wt of IBW Calories/Kcals/Kg 25-30 Kcals Calculated 7003-1260 Protein: Adj wt of IBW Protein g/k.1-1.3 Protein Calculated 57-68 Fluid: ml 1300-1560ml (1ml/kcal) Nutritional Problem 1. Problem Problem increased nutrition needs Etiology increased metabolic demand Signs/Symptoms: dx of sepsis Intervention/Recommendation Comments 1. Continue with low sodium diet as ordered. Nurse to monitor pt eat. If needed, change diet per ST recommend after swallow eval. 2. Monitor PO intake, wt, labs and skin integrity 3. F/U as high risk in 2-3 days, 08/12-08/13 Expected Outcomes/Goals Expected Outcomes/Goals 1. PO intake to meet at least 75% of nutritional needs. 2. Wt stability, skin to remain intact, labs to approach WNL.
[2017-08-12 06:02] LABS: EOSINOPHILE ABSOLUTE 0.3 Th/cmm (0.1-0.4); MONOCYTE ABSOLUTE 0.4 Th/cmm (0.3-1.0)
[2017-08-12 06:09] LABS: % BASOPHILS 0.8 % (0.0-2.0); % EOSINOPHILS 5.4 % (0.0-5.0); % LYMPHOCYTES 36.1 % (20.0-50.0); % MONOCYTES 7.4 % (2.0-10.0); % NEUTROPHILS 50.3 % (40.0-80.0); HEMATOCRIT 36.3 % (41.0-60); HEMOGLOBIN 11.9 gm/dL (12-16); MEAN CELL VOLUME 93.6 fl (81-100); MEAN CORPUSCULAR HEMOGLOBIN 30.8 pg (27.0-31.0); MEAN CORPUSCULAR HGB CONC 32.9 pg (28.0-36.0); MEAN PLATELET VOLUME 7.3 fl; NEUTROPHILE ABSOLUTE 2.8 Th/cmm (1.8-8.0); PLATELET COUNT 207 Th/cmm (150-400); RED BLOOD COUNT 3.87 Mil/cmm (3.80-5.20); RED CELL DISTRIBUTION WIDTH 12.8 % (11.5-20.0); WHITE BLOOD COUNT 5.5 Th/cmm (4.8-10.8)
[2017-08-12 06:24] LABS: ANION GAP 8.5 (7.0-16.0); BUN - UREA NITROGEN 10 mg/dL (7-25); CALCIUM SERUM 8.9 mg/dL (8.6-10.3); CARBON DIOXIDE 24.1 mEq/L (21.0-31.0); CHLORIDE 110 mEq/L (98-107); CREATININE - SERUM 0.9 mg/dL (0.6-1.2); GLUCOSE 113 mg/dL (70-105); POTASSIUM SERUM 3.6 mEq/L (3.5-5.1); SODIUM SERUM 139 mEq/L (136-145)
[2017-08-12] MEDS: Multivitamin Tab PO SCH (08:34)
--- NOTE | 2017-08-12 15:18 | General Progress Note ---
Subjective - Review of Systems Events since last encounter: patient awake in no distress Objective - Results Result Diagrams: 08/12/17 05:44 08/12/17 05:44 Recent Labs: Laboratory Last Values WBC 5.5 Th/cmm (4.8-10.8) 08/12/17 05:44 RBC 3.87 Mil/cmm (3.80-5.20) 08/12/17 05:44 Hgb 11.9 gm/dL (12-16) L 08/12/17 05:44 Hct 36.3 % (41.0-60) L 08/12/17 05:44 MCV 93.6 fl (81-100) 08/12/17 05:44 MCH 30.8 pg (27.0-31.0) 08/12/17 05:44 MCHC Differential 32.9 pg (28.0-36.0) 08/12/17 05:44 RDW 12.8 % (11.5-20.0) 08/12/17 05:44 Plt Count 207 Th/cmm (150-400) 08/12/17 05:44 MPV 7.3 fl 08/12/17 05:44 Neutrophils % 50.3 % (40.0-80.0) 08/12/17 05:44 Lymphocytes % 36.1 % (20.0-50.0) 08/12/17 05:44 Monocytes % 7.4 % (2.0-10.0) 08/12/17 05:44 Eosinophils % 5.4 % (0.0-5.0) H 08/12/17 05:44 Basophils % 0.8 % (0.0-2.0) 08/12/17 05:44 PT 10.2 SECONDS (9.5-11.5) 08/09/17 12:50 INR 0.98 (0.5-1.4) 08/09/17 12:50 PTT (Actin FS) 24.4 SECONDS (26.0-38.0) L 08/09/17 12:50 Sodium 139 mEq/L (136-145) 08/12/17 05:44 Potassium 3.6 mEq/L (3.5-5.1) 08/12/17 05:44 Chloride 110 mEq/L (98-107) H 08/12/17 05:44 Carbon Dioxide 24.1 mEq/L (21.0-31.0) 08/12/17 05:44 Anion Gap 8.5 (7.0-16.0) 08/12/17 05:44 BUN 10 mg/dL (7-25) 08/12/17 05:44 Creatinine 0.9 mg/dL (0.6-1.2) 08/12/17 05:44 Est GFR ( Amer) TNP 08/12/17 05:44 Est GFR (Non-Af Amer) TNP 08/12/17 05:44 BUN/Creatinine Ratio 11.1 08/12/17 05:44 Glucose 113 mg/dL (70-105) H 08/12/17 05:44 Whole Bld Lactic Acid 1.30 mmol/L (0.60-1.99) 08/09/17 12:50 Calcium 8.9 mg/dL (8.6-10.3) 08/12/17 05:44 Total Bilirubin 0.5 mg/dL (0.3-1.0) 08/09/17 12:50 AST 23 U/L (13-39) 08/09/17 12:50 ALT 19 U/L (7-52) 08/09/17 12:50 Alkaline Phosphatase 100 U/L (34-104) 08/09/17 12:50 Creatine Kinase 42 U/L (30-223) 08/09/17 12:50 Troponin I 0.01 ng/mL (0.01-0.05) 08/09/17 12:50 Total Protein 6.8 gm/dL (6.0-8.3) 08/09/17 12:50 Albumin 3.4 gm/dL (3.7-5.3) L 08/09/17 12:50 Globulin 3.4 gm/dL 08/09/17 12:50 Albumin/Globulin Ratio 1.0 (1.0-1.8) 08/09/17 12:50 Triglycerides 108 mg/dL (<150) 08/10/17 06:12 Cholesterol 136 mg/dL (<200) 08/10/17 06:12 LDL Cholesterol Direct 85 mg/dL (75-193) 08/10/17 06:12 HDL Cholesterol 35 mg/dL (23-92) 08/10/17 06:12 TSH 5.61 uIU/ml (0.34-5.60) H 08/10/17 06:12 Urine Source MIDSTREAM 08/09/17 12:54 Urine Color YELLOW 08/09/17 12:54 Urine Clarity HAZY (CLEAR) 08/09/17 12:54 Urine pH 7.5 (4.6 - 8.0) 08/09/17 12:54 Ur Specific [place] 1.015 (1.005-1.030) 08/09/17 12:54 Urine Protein NEGATIVE mg/dL (NEGATIVE) 08/09/17 12:54 Urine Glucose (UA) NEGATIVE mg/dL (NEGATIVE) 08/09/17 12:54 Urine Ketones NEGATIVE mg/dL (NEGATIVE) 08/09/17 12:54 Urine Blood SMALL (NEGATIVE) H 08/09/17 12:54 Urine Nitrate NEGATIVE (NEGATIVE) 08/09/17 12:54 Urine Bilirubin NEGATIVE (NEGATIVE) 08/09/17 12:54 Urine Urobilinogen 0.2 E.U./dL (0.2 - 1.0) 08/09/17 12:54 Ur Leukocyte Esterase LARGE (NEGATIVE) H 08/09/17 12:54 Urine RBC 2-5 /hpf (0-5) 08/09/17 12:54 Urine WBC >100 /hpf (0-5) H 08/09/17 12:54 Ur Epithelial Cells FEW /lpf (FEW) 08/09/17 12:54 Urine Bacteria FEW /hpf (NONE SEEN) 08/09/17 12:54 - Physical Exam Vitals and I&O: Vital Signs Temp 97.2 F 08/12/17 11:22 Pulse 60 08/12/17 14:02 Resp 18 08/12/17 11:22 BP 111/37 08/12/17 14:02 Pulse Ox 97 08/12/17 11:22 Intake & Output 08/11/17 08/12/17 08/12/17 18:59 06:59 18:59 Intake Total 1541.667 Balance 1541.667 Weight (lbs) 73.936 kg Intake: Intake, IV Amount 991.667 D5-0.45NS 1,000 ml @ 50 991.667 mls/hr IV .Q20H [facility]IS[facility] Rx#: [id number] Oral 550 Other: # Voids 3 # Bowel Movements 1 Stool Characteristics Soft Weight Source Bedscale Active Medications: Current Medications Acetaminophen (Tylenol) 650 mg PO Q4HR PRN PRN Reason: Fever > 101 or mild pain Stop: 10/08/17 22:40 Acetaminophen (Tylenol Extra Strength) 1,000 mg PO Q4HR PRN PRN Reason: moderate pain Stop: 10/08/17 22:40 Al Hydrox/Mg Hydrox/Simethicone (Maalox) 30 ml PO Q4HR PRN PRN Reason: GI DISTRESS Stop: 10/08/17 22:40 Atorvastatin Calcium (Lipitor) 10 mg PO HS [facility] PRN Reason: Protocol Stop: 10/09/17 20:59 Last Admin: 08/11/17 20:28 Dose: 10 mg Ciprofloxacin (Cipro) 250 mg PO Q12H [facility] Stop: 10/09/17 11:59 Last Admin: 08/12/17 11:46 Dose: 250 mg Docusate Sodium (Colace) 100 mg PO DAILY [facility] Stop: 10/09/17 08:59 Last Admin: 08/12/17 08:34 Dose: 100 mg Donepezil HCl (Aricept) 10 mg PO DAILY [facility] Stop: 10/09/17 08:59 Last Admin: 08/12/17 08:34 Dose: 10 mg Folic Acid (Folate) 1 mg PO DAILY [facility] Stop: 10/09/17 08:59 Last Admin: 08/12/17 08:34 Dose: 1 mg Heparin Sodium (Porcine) (Heparin) 5,000 units SUBQ Q12HR [facility] Stop: 10/09/17 20:59 Last Admin: 08/12/17 08:35 Dose: 5,000 units Dextrose/Sodium Chloride (D5-0.45ns) 1,000 mls @ 50 mls/hr IV .Q20H [facility] Stop: 10/08/17 21:44 Last Admin: 08/11/17 20:42 Dose: 50 mls/hr Isosorbide Dinitrate (Isordil) 5 mg PO TID [facility] Stop: 10/09/17 08:59 Last Admin: 08/12/17 14:02 Dose: Not Given Memantine (Namenda) 10 mg PO BID [facility] Stop: 10/09/17 08:59 Last Admin: 08/12/17 08:34 Dose: 10 mg Miscellaneous (Vte Chemical Prophylaxis Screen/ Admission) 1 ea [facility] PRN PRN PRN Reason: PROTOCOL Stop: 10/09/17 12:17 Multivitamins/Vitamin C (Theragran) 1 tab PO DAILY [facility] Stop: 10/09/17 08:59 Last Admin: 08/12/17 08:34 Dose: 1 tab Nitroglycerin (Nitrostat) 0.4 mg SL Q5MIN PRN PRN Reason: Chest Pain Stop: 10/08/17 22:40 Nutritional Asmnt/Malnutr-PDOC - Dietary Evaluation Malnutrition Findings (Please click <Entered> for more info): Nutritional Asmnt/Malnutrition Start: 08/10/17 15: 45 Text: Status: Complete Freq: Document 08/10/17 15:45 MARY (Rec: 08/10/17 15:58 MARY [id number]) Nutritional Asmnt/Malnutrition Patient General Information Nutritional Screening High Risk Diagnosis UTI, sepsis Pertinent Medical Hx/Surgical Hx HTN, CAD, hydlipidemia, arthritis, dementia Subjective Information Per H&P, pt had poor oral intake for 3 days. Per nurse note, MD ordered low sodium diet for pt. Pt also have a swallow eval ordered noted. RN will monitor pt to eat. pt seen resting in bed at time of visit, non verbal noted. Current Diet Order/ Nutrition Support low sodium Pertinent Medications D5-0.45ns, colace, folate, theragran Pertinent Labs 08/10 nutrition labs WNL / Alb 3.4 Nutritional Hx/Data Height 1.47 m Height (Calculated Centimeters) 147.3 Current Weight (lbs) 75.523 kg Weight (Calculated Kilograms) 75.5 Weight (Calculated Grams) 16808.1 [place] Body Weight 96 Body Mass Index (BMI) 34.7 Weight Status Obese GI Symptoms GI Symptoms None Last BM no record Skin Integrity/Comment: Redness/bruises under left breast (chest area) Estimated Nutritional Goals BEE in Kcals: Adj wt of IBW Calories/Kcals/Kg 25-30 Kcals Calculated 4475-7044 Protein: Adj wt of IBW Protein g/k.1-1.3 Protein Calculated 57-68 Fluid: ml 1300-1560ml (1ml/kcal) Nutritional Problem 1. Problem Problem increased nutrition needs Etiology increased metabolic demand Signs/Symptoms: dx of sepsis Intervention/Recommendation Comments 1. Continue with low sodium diet as ordered. Nurse to monitor pt eat. If needed, change diet per ST recommend after swallow eval. 2. Monitor PO intake, wt, labs and skin integrity 3. F/U as high risk in 2-3 days, 08/12-08/13 Expected Outcomes/Goals Expected Outcomes/Goals 1. PO intake to meet at least 75% of nutritional needs. 2. Wt stability, skin to remain intact, labs to approach WNL.
--- NOTE | 2017-08-12 20:15 | Consultation ---
DATE OF CONSULTATION: 08/12/2017 HISTORY OF PRESENT ILLNESS: An 82-year-old female sent in [place] due to poor oral intake, very depressed, not answering any questions, seems to be AO to name only, history of dementia, just laughs when I ask her questions, stares blankly, in mittens. Staff noting she is mainly just sleeping and laughing at all questions. PAST PSYCHIATRIC HISTORY: It seems that she has pretty advanced dementia. PAST MEDICAL HISTORY: Please see full H and P. MEDICATIONS: Noted including Aricept, Lexapro, and Namenda. MENTAL STATUS EXAMINATION: Stated age, some eye contact. Awake, alert, but confused, not saying anything, just laughing, giggling. Mood, unable to assess. Affect flat. Thought processes were highly disoriented. No overt SI or HI. No overt psychotic symptoms. PROVISIONAL DIAGNOSIS: Dementia with behavioral disturbances, also mood, unspecified. Under medical, please see full H and P. RECOMMENDATIONS AND PLAN: The patient apparently residing at [facility]. It is unclear in regards to a differential diagnosis. She may benefit from medications such as Remeron. We will stop Lexapro as there is no overt evidence of depression. Her current symptoms are highly consistent with dementia diagnosis. If weight gain is something to be targeted, recommend using a medication such as Megace. We will monitor and follow up. JOB# [id number]
== END 2017-08-12 17:02 | DRG 872 ==
LOC: ER 12:47 → MSI 18:39
PROVIDERS: ADMIT Internal Medicine; ATTEND Internal Medicine
DX: A41.9 Sepsis, unspecified organism (principal); N39.0 Urinary tract infection, site not specified; F03.91 Unspecified dementia, unspecified severity, with behavioral disturbance; E86.0 Dehydration; R62.7 Adult failure to thrive; M19.90 Unspecified osteoarthritis, unspecified site; D64.9 Anemia, unspecified; I10 Essential (primary) hypertension; F32.9 Major depressive disorder, single episode, unspecified; I25.10 Atherosclerotic heart disease of native coronary artery without angina pectoris; E78.5 Hyperlipidemia, unspecified; Z82.49 Family history of ischemic heart disease and other diseases of the circulatory system; Z88.0 Allergy status to penicillin; Z88.6 Allergy status to analgesic agent
CPT/HCPCS: 36415-UA; 70450-TC; 71045-TC; 80048-TC; 80053-TC; 80061-TC; 81001-TC; 82550-TC; 83605; 84443-TC; 84484-TC; 85025-TC; 85610-TC; 85730-TC; 87086-90; 93005; J1644; J1956; X3401; Z7610

== ENCOUNTER 2017-08-12 17:03 | Inpatient (IN) | payer MEDICARE, MEDICAID ==
[2017-08-12] MEDS ORDERED: Maalox 30 mL Cup PO PRN (18:30)
[2017-08-12] MEDS ORDERED: Acetaminophen 500 MG TAB PO PRN (18:43)
[2017-08-12] MEDS ORDERED: Escitalopram Oxalate 5 mg Tab PO SCH (21:00)
[2017-08-12] MEDS ORDERED: Atorvastatin Calcium 10 MG TAB PO SCH (21:00)
[2017-08-13 00:58] VITALS: BP 102/50
[2017-08-13] MEDS ORDERED: Maalox 30 mL Cup PO PRN (02:49)
[2017-08-13] MEDS ORDERED: Non-Formulary Item 1 EA (Docusate Sodium [Docusate Sodium] 100 MG) PO SCH (09:00)
[2017-08-13] MEDS ORDERED: Multivitamin Tab PO SCH (09:00)
[2017-08-13] MEDS ORDERED: ISOSORBIDE DINITRATE 5 MG PO SCH (09:00)
[2017-08-13] MEDS: Multivitamin Tab PO SCH (09:24)
--- NOTE | 2017-08-13 12:39 | Progress Notes ---
DATE: 08/13/2017 The patient was seen yesterday by this clinician. The patient remains disoriented, laughing mostly, staff noting, however, she has episodes of agitation and aggressive behaviors, highly impulsive, history of advanced dementia. She remains withdrawn and isolating, highly disoriented. Medications were noted. ASSESSMENT: The patient remains disoriented, confused, laughing to all questions. She remains highly impulsive and unpredictable. PLAN: We will continue to monitor. Continue dose escalation of medications. The patient may need changes to her medication regimen to control her impulsive behaviors. We will monitor and follow up. [facility]# [id number]
--- NOTE | 2017-08-13 15:25 | History & Physical ---
ADMIT DATE: 08/13/2017 CHIEF COMPLAINT: Transfer from Med/Surg. HISTORY OF PRESENT ILLNESS: This is an 82-year-old female who was recently discharged from the med/surg unit due to poor oral intake. The patient is now here admitted to the Geropsych Unit. PAST MEDICAL HISTORY: Hypertension, CAD, hyperlipidemia, OA. FAMILY HISTORY: Noncontributory. PAST SURGICAL HISTORY: None. REVIEW OF SYSTEMS: GENERAL: Denies any fevers and chills. CARDIOVASCULAR: Denies chest pain. RESPIRATORY: Denies shortness of breath. GASTROINTESTINAL: Denies nausea, vomiting, abdominal pain. GENITOURINARY: Denies increased frequency or dysuria. NEUROLOGIC: No headaches, seizures, or syncope. All other systems are reviewed and are negative. PHYSICAL EXAMINATION: GENERAL: Elderly female, awake, alert, in no apparent distress. VITAL SIGNS: Temperature 98.1, heart rate 59, blood pressure 102/50, respiration 18, O2 97%. HEENT: Head normocephalic, atraumatic. NECK: Supple. No mass. LUNGS: Clear bilaterally. HEART: Regular rate and rhythm. ABDOMEN: Soft, nontender. ASSESSMENT: Dementia, osteoarthritis, anemia, and hypertension. PLAN: We will monitor the patient's oral intake. Continue SNF medications. We will continue to follow this patient. [facility]# [id number]
[2017-08-13] MEDS: Atorvastatin Calcium 10 MG TAB PO SCH (20:31)
[2017-08-14 06:49] LABS: INR 0.99 (0.5-1.4); PROTHROMBIN TIME (TEST) 10.3 SECONDS (9.5-11.5)
[2017-08-14] MEDS: Multivitamin Tab PO SCH (08:59)
--- NOTE | 2017-08-14 09:00 | General Progress Note ---
Subjective - Review of Systems Events since last encounter: patient awake alert denies pain Objective - Results Recent Labs: Laboratory Last Values PT 10.3 SECONDS (9.5-11.5) 08/14/17 06:00 INR 0.99 (0.5-1.4) 08/14/17 06:00 PTT (Actin FS) 33.9 SECONDS (26.0-38.0) 08/14/17 06:00 - Physical Exam Vitals and I&O: Vital Signs Temp 98.3 F 08/14/17 06:58 Pulse 55 08/14/17 06:58 Resp 19 08/14/17 06:58 BP 114/59 08/14/17 06:58 Pulse Ox 96 08/14/17 06:58 Intake & Output 08/13/17 08/14/17 08/14/17 18:59 06:59 18:59 Intake Total 250 Balance 250 Intake: Oral 250 Other: # Voids 2 # Bowel Movements 0 Active Medications: Current Medications Acetaminophen (Tylenol) 650 mg PO Q4H PRN PRN Reason: Pain (Mild) Stop: 10/11/17 18:43 Last Admin: 08/12/17 22:07 Dose: 650 mg Al Hydrox/Mg Hydrox/Simethicone (Maalox) 30 ml PO Q4HR PRN PRN Reason: GI DISTRESS Stop: 10/12/17 02:48 Atorvastatin Calcium (Lipitor) 10 mg PO [facility] PRN Reason: Protocol Stop: 10/12/17 20:59 Last Admin: 08/13/17 20:31 Dose: 10 mg Ciprofloxacin (Cipro) 250 mg PO 0900,2100 [facility] Stop: 10/11/17 20:59 Last Admin: 08/13/17 20:30 Dose: 250 mg Docusate Sodium (Colace) 100 mg PO DAILY [facility] Stop: 10/12/17 08:59 Last Admin: 08/13/17 09:24 Dose: Not Given Donepezil HCl (Aricept) 10 mg PO DAILY [facility] Stop: 10/12/17 08:59 Last Admin: 08/13/17 09:28 Dose: 10 mg Escitalopram Oxalate (Lexapro) 10 mg PO [facility] PRN Reason: Protocol Stop: 10/13/17 06:18 Folic Acid (Folate) 1 mg PO DAILY [facility] Stop: 10/12/17 08:59 Last Admin: 08/13/17 09:26 Dose: 1 mg Heparin Sodium (Porcine) (Heparin) 5,000 units SUBQ Q12HR [facility] Stop: 10/12/17 08:59 Last Admin: 08/13/17 20:34 Dose: 5,000 units Isosorbide Dinitrate (Isordil) 5 mg PO TID [facility] Stop: 10/11/17 20:59 Last Admin: 08/13/17 20:31 Dose: Not Given Memantine (Namenda) 10 mg PO BID [facility] Stop: 10/12/17 08:59 Last Admin: 08/13/17 17:22 Dose: 10 mg Multivitamins/Vitamin C (Theragran) 1 tab PO DAILY [facility] Stop: 10/12/17 08:59 Last Admin: 08/13/17 09:24 Dose: 1 tab Nitroglycerin (Nitrostat) 0.4 mg SL Q5MIN PRN PRN Reason: Chest Pain Stop: 10/12/17 02:48
[2017-08-14] MEDS: Atorvastatin Calcium 10 MG TAB PO SCH (21:22)
--- NOTE | 2017-08-15 02:27 | Progress Notes ---
DATE: SUBJECTIVE: Chart reviewed and the patient interviewed. Also discussed the patient's condition with the staff and reviewed records and labs. The patient states that she is agitated and she is in irritable mood. The patient also seems to be actively responding to stimuli and she was talking to imaginary objects during my interview. She also has difficulty sleeping at night, "because of the noises and that the room is "cold." The patient also is still agitated and is still having episodes of irritability and anger. ASSESSMENT: The patient is still psychotic and still needs close monitoring. MENTAL STATUS EXAM: The patient is depressed and anxious and restless and responding to stimuli. TREATMENT PLAN: We will increase Lexapro to 10 mg at bedtime. Also, we will continue to work on her confusion and irritability as well as her psychosis and we will continue to follow up. Estimated length of stay 4-6 days. MEDICAL ISSUES: The patient currently has no major medical problems, but she has history of sepsis and urinary tract infection as well as angina. [facility]# [id number]
[2017-08-15] MEDS: Multivitamin Tab PO SCH (09:56)
--- NOTE | 2017-08-15 20:22 | General Progress Note ---
Objective - Results Recent Labs: Laboratory Last Values PT 10.3 SECONDS (9.5-11.5) 08/14/17 06:00 INR 0.99 (0.5-1.4) 08/14/17 06:00 PTT (Actin FS) 33.9 SECONDS (26.0-38.0) 08/14/17 06:00 - Physical Exam Vitals and I&O: Vital Signs Temp 97.6 F 08/15/17 14:00 Pulse 59 08/15/17 14:00 Resp 20 08/15/17 20:00 BP 117/54 08/15/17 14:00 Pulse Ox 98 08/15/17 14:00 Intake & Output 08/15/17 08/15/17 08/16/17 06:59 18:59 06:59 Intake Total 1320 Balance 1320 Intake: Oral 1320 Other: # Voids 4 # Bowel Movements 0 Active Medications: Current Medications Acetaminophen (Tylenol) 650 mg PO Q4H PRN PRN Reason: Pain (Mild) Stop: 10/11/17 18:43 Last Admin: 08/12/17 22:07 Dose: 650 mg Al Hydrox/Mg Hydrox/Simethicone (Maalox) 30 ml PO Q4HR PRN PRN Reason: GI DISTRESS Stop: 10/12/17 02:48 Atorvastatin Calcium (Lipitor) 10 mg PO HS [facility] PRN Reason: Protocol Stop: 10/12/17 20:59 Last Admin: 08/14/17 21:22 Dose: 10 mg Ciprofloxacin (Cipro) 250 mg PO 0900,2100 [facility] Stop: 10/11/17 20:59 Last Admin: 08/15/17 09:55 Dose: 250 mg Docusate Sodium (Colace) 100 mg PO DAILY [facility] Stop: 10/12/17 08:59 Last Admin: 08/15/17 09:57 Dose: 100 mg Donepezil HCl (Aricept) 10 mg PO DAILY [facility] Stop: 10/12/17 08:59 Last Admin: 08/15/17 09:56 Dose: 10 mg Escitalopram Oxalate (Lexapro) 10 mg PO HS [facility] PRN Reason: Protocol Stop: 10/13/17 06:18 Last Admin: 08/14/17 21:23 Dose: 10 mg Folic Acid (Folate) 1 mg PO DAILY [facility] Stop: 10/12/17 08:59 Last Admin: 08/15/17 09:56 Dose: 1 mg Heparin Sodium (Porcine) (Heparin) 5,000 units SUBQ Q12HR [facility] Stop: 10/12/17 08:59 Last Admin: 08/15/17 09:58 Dose: 5,000 units Isosorbide Dinitrate (Isordil) 5 mg PO TID [facility] Stop: 10/11/17 20:59 Last Admin: 08/15/17 17:25 Dose: Not Given Memantine (Namenda) 10 mg PO BID [facility] Stop: 10/12/17 08:59 Last Admin: 08/15/17 17:26 Dose: Not Given Multivitamins/Vitamin C (Theragran) 1 tab PO DAILY [facility] Stop: 10/12/17 08:59 Last Admin: 08/15/17 09:56 Dose: 1 tab Nitroglycerin (Nitrostat) 0.4 mg SL Q5MIN PRN PRN Reason: Chest Pain Stop: 10/12/17 02:48
[2017-08-15] MEDS: Atorvastatin Calcium 10 MG TAB PO SCH (21:20)
[2017-08-16] MEDS: Multivitamin Tab PO SCH (09:35)
[2017-08-16] MEDS ORDERED: Probiotic Screen MC PRN (11:23)
--- NOTE | 2017-08-16 13:39 | Internal Medicine Prog Note ---
Internal Medicine Subjective - Subjective Service Date: 08/16/17 Patient seen and examined:: with staff Patient is:: awake Per staff patient has:: tolerating meds Internal Medicine Objective - Results Recent Labs: Laboratory Last Values PT 10.3 SECONDS (9.5-11.5) 08/14/17 06:00 INR 0.99 (0.5-1.4) 08/14/17 06:00 PTT (Actin FS) 33.9 SECONDS (26.0-38.0) 08/14/17 06:00 - Physical Exam Vitals and I&O: Vital Signs Temp 97.5 F 08/16/17 07:07 Pulse 61 08/16/17 09:36 Resp 19 08/16/17 07:07 BP 133/57 08/16/17 09:36 Pulse Ox 96 08/16/17 07:07 Intake & Output 08/15/17 08/16/17 08/16/17 18:59 06:59 18:59 Intake Total 1320 240 Balance 1320 240 Intake: Oral 1320 240 Other: # Voids 4 2 # Bowel Movements 0 0 Active Medications: Current Medications Acetaminophen (Tylenol) 650 mg PO Q4H PRN PRN Reason: Pain (Mild) Stop: 10/11/17 18:43 Last Admin: 08/12/17 22:07 Dose: 650 mg Al Hydrox/Mg Hydrox/Simethicone (Maalox) 30 ml PO Q4HR PRN PRN Reason: GI DISTRESS Stop: 10/12/17 02:48 Atorvastatin Calcium (Lipitor) 10 mg PO [facility] PRN Reason: Protocol Stop: 10/12/17 20:59 Last Admin: 08/15/17 21:20 Dose: 10 mg Ciprofloxacin (Cipro) 250 mg PO 0900,2100 [facility] Stop: 10/11/17 20:59 Last Admin: 08/16/17 09:35 Dose: 250 mg Docusate Sodium (Colace) 100 mg PO DAILY [facility] Stop: 10/12/17 08:59 Last Admin: 08/16/17 09:36 Dose: 100 mg Donepezil HCl (Aricept) 10 mg PO DAILY [facility] Stop: 10/12/17 08:59 Last Admin: 08/16/17 09:38 Dose: 10 mg Escitalopram Oxalate (Lexapro) 10 mg PO [facility] PRN Reason: Protocol Stop: 10/13/17 06:18 Last Admin: 08/15/17 21:21 Dose: 10 mg Folic Acid (Folate) 1 mg PO DAILY [facility] Stop: 10/12/17 08:59 Last Admin: 08/16/17 09:36 Dose: 1 mg Heparin Sodium (Porcine) (Heparin) 5,000 units SUBQ Q12HR [facility] Stop: 10/12/17 08:59 Last Admin: 08/16/17 09:51 Dose: 5,000 units Isosorbide Dinitrate (Isordil) 5 mg PO TID [facility] Stop: 10/11/17 20:59 Last Admin: 08/16/17 09:36 Dose: 5 mg Lactobacillus Rhamnosus (Culturelle 15b) 1 each PO DAILY [facility] Stop: 10/16/17 08:59 Memantine (Namenda) 10 mg PO BID [facility] Stop: 10/12/17 08:59 Last Admin: 08/16/17 09:38 Dose: 10 mg Miscellaneous (Probiotic Screen) 1 ea [facility] PRN PRN PRN Reason: PROTOCOL Stop: 10/15/17 11:22 Multivitamins/Vitamin C (Theragran) 1 tab PO DAILY [facility] Stop: 10/12/17 08:59 Last Admin: 08/16/17 09:35 Dose: 1 tab Nitroglycerin (Nitrostat) 0.4 mg SL Q5MIN PRN PRN Reason: Chest Pain Stop: 10/12/17 02:48 General: alert HEENT: NC/AT, PERRLA Neck: Supple Internal Medicine Assmt/Plan - Assessment Assessment: dementia oa htn - Plan Plan: cpm
--- NOTE | 2017-08-16 13:39 | Internal Medicine Prog Note ---
Internal Medicine Subjective - Subjective Service Date: 08/16/17 Patient seen and examined:: with staff Patient is:: awake Per staff patient has:: tolerating meds Internal Medicine Objective - Results Recent Labs: Laboratory Last Values PT 10.3 SECONDS (9.5-11.5) 08/14/17 06:00 INR 0.99 (0.5-1.4) 08/14/17 06:00 PTT (Actin FS) 33.9 SECONDS (26.0-38.0) 08/14/17 06:00 - Physical Exam Vitals and I&O: Vital Signs Temp 97.5 F 08/16/17 07:07 Pulse 61 08/16/17 09:36 Resp 19 08/16/17 07:07 BP 133/57 08/16/17 09:36 Pulse Ox 96 08/16/17 07:07 Intake & Output 08/15/17 08/16/17 08/16/17 18:59 06:59 18:59 Intake Total 1320 240 Balance 1320 240 Intake: Oral 1320 240 Other: # Voids 4 2 # Bowel Movements 0 0 Active Medications: Current Medications Acetaminophen (Tylenol) 650 mg PO Q4H PRN PRN Reason: Pain (Mild) Stop: 10/11/17 18:43 Last Admin: 08/12/17 22:07 Dose: 650 mg Al Hydrox/Mg Hydrox/Simethicone (Maalox) 30 ml PO Q4HR PRN PRN Reason: GI DISTRESS Stop: 10/12/17 02:48 Atorvastatin Calcium (Lipitor) 10 mg PO [facility] PRN Reason: Protocol Stop: 10/12/17 20:59 Last Admin: 08/15/17 21:20 Dose: 10 mg Ciprofloxacin (Cipro) 250 mg PO 0900,2100 [facility] Stop: 10/11/17 20:59 Last Admin: 08/16/17 09:35 Dose: 250 mg Docusate Sodium (Colace) 100 mg PO DAILY [facility] Stop: 10/12/17 08:59 Last Admin: 08/16/17 09:36 Dose: 100 mg Donepezil HCl (Aricept) 10 mg PO DAILY [facility] Stop: 10/12/17 08:59 Last Admin: 08/16/17 09:38 Dose: 10 mg Escitalopram Oxalate (Lexapro) 10 mg PO [facility] PRN Reason: Protocol Stop: 10/13/17 06:18 Last Admin: 08/15/17 21:21 Dose: 10 mg Folic Acid (Folate) 1 mg PO DAILY [facility] Stop: 10/12/17 08:59 Last Admin: 08/16/17 09:36 Dose: 1 mg Heparin Sodium (Porcine) (Heparin) 5,000 units SUBQ Q12HR [facility] Stop: 10/12/17 08:59 Last Admin: 08/16/17 09:51 Dose: 5,000 units Isosorbide Dinitrate (Isordil) 5 mg PO TID [facility] Stop: 10/11/17 20:59 Last Admin: 08/16/17 09:36 Dose: 5 mg Lactobacillus Rhamnosus (Culturelle 15b) 1 each PO DAILY [facility] Stop: 10/16/17 08:59 Memantine (Namenda) 10 mg PO BID [facility] Stop: 10/12/17 08:59 Last Admin: 08/16/17 09:38 Dose: 10 mg Miscellaneous (Probiotic Screen) 1 ea [facility] PRN PRN PRN Reason: PROTOCOL Stop: 10/15/17 11:22 Multivitamins/Vitamin C (Theragran) 1 tab PO DAILY [facility] Stop: 10/12/17 08:59 Last Admin: 08/16/17 09:35 Dose: 1 tab Nitroglycerin (Nitrostat) 0.4 mg SL Q5MIN PRN PRN Reason: Chest Pain Stop: 10/12/17 02:48 General: alert HEENT: NC/AT, PERRLA Neck: Supple
[2017-08-16] MEDS: Atorvastatin Calcium 10 MG TAB PO SCH (20:29)
[2017-08-17] MEDS: Lactobacillus Rhamnosus GG 15 Billion CFU CAP.SPRINK PO SCH (09:25)
[2017-08-17] MEDS: Multivitamin Tab PO SCH (09:27)
--- NOTE | 2017-08-17 10:38 | Internal Medicine Prog Note ---
Internal Medicine Subjective - Subjective Patient is:: awake Per staff patient has:: tolerating meds Internal Medicine Objective - Results Recent Labs: Laboratory Last Values PT 10.3 SECONDS (9.5-11.5) 08/14/17 06:00 INR 0.99 (0.5-1.4) 08/14/17 06:00 PTT (Actin FS) 33.9 SECONDS (26.0-38.0) 08/14/17 06:00 - Physical Exam Vitals and I&O: Vital Signs Temp 98.2 F 08/16/17 20:58 Pulse 62 08/17/17 09:25 Resp 18 08/16/17 20:58 BP 121/70 08/17/17 09:25 Pulse Ox 97 08/16/17 14:00 Intake & Output 08/16/17 08/17/17 08/17/17 18:59 06:59 18:59 Intake Total 720 Balance 720 Intake: Oral 720 Other: # Voids 3 # Bowel Movements 0 Active Medications: Current Medications Acetaminophen (Tylenol) 650 mg PO Q4H PRN PRN Reason: Pain (Mild) Stop: 10/11/17 18:43 Last Admin: 08/12/17 22:07 Dose: 650 mg Al Hydrox/Mg Hydrox/Simethicone (Maalox) 30 ml PO Q4HR PRN PRN Reason: GI DISTRESS Stop: 10/12/17 02:48 Atorvastatin Calcium (Lipitor) 10 mg PO HS [facility] PRN Reason: Protocol Stop: 10/12/17 20:59 Last Admin: 08/16/17 20:29 Dose: 10 mg Ciprofloxacin (Cipro) 250 mg PO 0900,2100 [facility] Stop: 10/11/17 20:59 Last Admin: 08/17/17 09:23 Dose: 250 mg Docusate Sodium (Colace) 100 mg PO DAILY [facility] Stop: 10/12/17 08:59 Last Admin: 08/17/17 09:24 Dose: 100 mg Donepezil HCl (Aricept) 10 mg PO DAILY [facility] Stop: 10/12/17 08:59 Last Admin: 08/17/17 09:28 Dose: 10 mg Escitalopram Oxalate (Lexapro) 10 mg PO HS [facility] PRN Reason: Protocol Stop: 10/13/17 06:18 Last Admin: 08/16/17 20:29 Dose: 10 mg Folic Acid (Folate) 1 mg PO DAILY [facility] Stop: 10/12/17 08:59 Last Admin: 08/17/17 09:26 Dose: 1 mg Heparin Sodium (Porcine) (Heparin) 5,000 units SUBQ Q12HR [facility] Stop: 10/12/17 08:59 Last Admin: 08/17/17 09:22 Dose: 5,000 units Isosorbide Dinitrate (Isordil) 5 mg PO TID [facility] Stop: 10/11/17 20:59 Last Admin: 08/17/17 09:25 Dose: 5 mg Lactobacillus Rhamnosus (Culturelle 15b) 1 each PO DAILY [facility] Stop: 10/16/17 08:59 Last Admin: 08/17/17 09:25 Dose: 1 each Memantine (Namenda) 10 mg PO BID [facility] Stop: 10/12/17 08:59 Last Admin: 08/17/17 09:27 Dose: 10 mg Miscellaneous (Probiotic Screen) 1 ea [facility] PRN PRN PRN Reason: PROTOCOL Stop: 10/15/17 11:22 Multivitamins/Vitamin C (Theragran) 1 tab PO DAILY [facility] Stop: 10/12/17 08:59 Last Admin: 08/17/17 09:27 Dose: 1 tab Nitroglycerin (Nitrostat) 0.4 mg SL Q5MIN PRN PRN Reason: Chest Pain Stop: 10/12/17 02:48 General: alert HEENT: NC/AT, PERRLA Neck: Supple
[2017-08-17] MEDS: Atorvastatin Calcium 10 MG TAB PO SCH (21:17)
--- NOTE | 2017-08-18 02:21 | Progress Notes ---
DATE: 08/17/[address] Gaytan. Case was discussed with staff of the patient, reviewed records. This is an 82-year-old female who was admitted on 08/12/2017. The patient is demented, confused, unable to make safe plan for self-care or participate in meaningful conversation with episodes of agitation, irritability at times, responding to internal stimuli, talking to imaginary people and if I talked to her, she was smiling inappropriately, unable to make safe plan for self-care. Unpredictable and impulsive. She is on Lexapro 10 mg daily, Aricept 10 mg daily, and Namenda 10 mg twice a day. No side effects, no sedation, no nausea. We will continue to work with the patient in group therapy, milieu therapy, and adjust the medications as needed. JOB# [id number]
[2017-08-18] MEDS: Multivitamin Tab PO SCH (09:20)
[2017-08-18] MEDS: Lactobacillus Rhamnosus GG 15 Billion CFU CAP.SPRINK PO SCH (09:20)
--- NOTE | 2017-08-18 12:12 | General Progress Note ---
Subjective - Review of Systems Events since last encounter: patient demented confused irritable at times Objective - Results Recent Labs: Laboratory Last Values PT 10.3 SECONDS (9.5-11.5) 08/14/17 06:00 INR 0.99 (0.5-1.4) 08/14/17 06:00 PTT (Actin FS) 33.9 SECONDS (26.0-38.0) 08/14/17 06:00 - Physical Exam Vitals and I&O: Vital Signs Temp 97.8 F 08/18/17 06:34 Pulse 60 08/18/17 09:21 Resp 19 08/18/17 06:34 BP 125/65 08/18/17 09:21 Pulse Ox 96 08/18/17 06:34 Intake & Output 08/17/17 08/18/17 08/18/17 18:59 06:59 18:59 Intake Total 1200 360 Balance 1200 360 Intake: Oral 1200 360 Other: # Voids 1 # Bowel Movements 1 Active Medications: Current Medications Acetaminophen (Tylenol) 650 mg PO Q4H PRN PRN Reason: Pain (Mild) Stop: 10/11/17 18:43 Last Admin: 08/12/17 22:07 Dose: 650 mg Al Hydrox/Mg Hydrox/Simethicone (Maalox) 30 ml PO Q4HR PRN PRN Reason: GI DISTRESS Stop: 10/12/17 02:48 Atorvastatin Calcium (Lipitor) 10 mg PO HS [facility] PRN Reason: Protocol Stop: 10/12/17 20:59 Last Admin: 08/17/17 21:17 Dose: 10 mg Ciprofloxacin (Cipro) 250 mg PO 0900,2100 [facility] Stop: 10/11/17 20:59 Last Admin: 08/18/17 09:19 Dose: 250 mg Docusate Sodium (Colace) 100 mg PO DAILY [facility] Stop: 10/12/17 08:59 Last Admin: 08/18/17 09:20 Dose: 100 mg Donepezil HCl (Aricept) 10 mg PO DAILY [facility] Stop: 10/12/17 08:59 Last Admin: 08/18/17 09:20 Dose: 10 mg Escitalopram Oxalate (Lexapro) 10 mg PO HS [facility] PRN Reason: Protocol Stop: 10/13/17 06:18 Last Admin: 08/17/17 21:19 Dose: 10 mg Folic Acid (Folate) 1 mg PO DAILY [facility] Stop: 10/12/17 08:59 Last Admin: 08/18/17 09:20 Dose: 1 mg Heparin Sodium (Porcine) (Heparin) 5,000 units SUBQ Q12HR [facility] Stop: 10/12/17 08:59 Last Admin: 08/18/17 09:20 Dose: 5,000 units Isosorbide Dinitrate (Isordil) 5 mg PO TID [facility] Stop: 10/11/17 20:59 Last Admin: 08/18/17 09:21 Dose: 5 mg Lactobacillus Rhamnosus (Culturelle 15b) 1 each PO DAILY [facility] Stop: 10/16/17 08:59 Last Admin: 08/18/17 09:20 Dose: 1 each Memantine (Namenda) 10 mg PO BID [facility] Stop: 10/12/17 08:59 Last Admin: 08/18/17 09:20 Dose: 10 mg Miscellaneous (Probiotic Screen) 1 ea [facility] PRN PRN PRN Reason: PROTOCOL Stop: 10/15/17 11:22 Multivitamins/Vitamin C (Theragran) 1 tab PO DAILY [facility] Stop: 10/12/17 08:59 Last Admin: 08/18/17 09:20 Dose: 1 tab Nitroglycerin (Nitrostat) 0.4 mg SL Q5MIN PRN PRN Reason: Chest Pain Stop: 10/12/17 02:48 Nutritional Asmnt/Malnutr-PDOC - Dietary Evaluation Malnutrition Findings (Please click <Entered> for more info): Nutritional Asmnt/Malnutrition Start: 08/18/17 10: 00 Text: Status: Active Freq: Document 08/18/17 10:00 MIRNA (Rec: 08/18/17 10:27 [facility] Nutritional Asmnt/Malnutrition Patient General Information Nutritional Screening Moderate Risk Diagnosis Depression, Dementia, Psychosis Pertinent Medical Hx/Surgical Hx HTN, CAD, Hyperlipidemia, OA Subjective Information Nauruan speaking. Swallow evaluation completed by speech therapist on 08/12 - recommended pureed texture with NTL, 100% feeding assistance, and aspiration precautions Current Diet Order/ Nutrition Support Pureed (S/P Swallowing Eval - [place] Thickened Liquid) Patient / S.O Not Indicated Pertinent Medications Maalox, lipitor, Colace, Folate, Theragran Pertinent Labs No labs this visit Nutritional Hx/Data Height 1.47 m Height (Calculated Centimeters) 147.3 Current Weight (lbs) 73.936 kg Weight (Calculated Kilograms) 73.9 Weight (Calculated Grams) 34792.6 [place] Body Weight 95 % [place] Body Weight 171 Body Mass Index (BMI) 34.0 Recent Weight Change No Weight Status Obese GI Symptoms GI Symptoms None Last BM 08/17 x 1 Difficult in: Chewing Swallowing Food Allergies No Cultural/Ethnic/Pentecostal Belief none indicated Skin Integrity/Comment: Andi 17, Intact Current %PO Fair (50-74%) Estimated Nutritional Goals BEE in Kcals: Adj wt of IBW Calories/Kcals/Kg Adj wt 112lb/51kg (25-30 kcal/ kg) Kcals Calculated ~2226-2510 kcal/day Protein: Adj wt of IBW Protein g/k-1.2 gm/kg Protein Calculated ~50-60 gm/day Fluid: ml ~7122-4758 ml/day (1 ml/kcal) Nutritional Problem 1. Problem Problem Inadequate oral intake related to Etiology possible poor appetite Signs/Symptoms: aeb oral intake 25-75% of meals (Average intake of 52% of meals) Intervention/Recommendation Comments 1. Continue Pureed diet with nectar thickened liquids as tolerated by patient and suggested by Speech therapist. 2. RN to provide feeding assistance and encourage oral intake. Patient's tray includes Health shake for extra kcal. If oral intake remains inadequate, may add Boost between meals for added protein and calories. Expected Outcomes/Goals Expected Outcomes/Goals Oral intake to meet >75% of meals, nutrition related labs normal, weight stable or trends toward ideal body weight, skin integrity remains intact.
[2017-08-18] MEDS: Atorvastatin Calcium 10 MG TAB PO SCH (21:35)
--- NOTE | 2017-08-19 02:08 | Progress Notes ---
DATE: 08/18/[address] Gaytan. Case discussed with staff of the patient, reviewed records. The patient continues to isolate herself. Continues to be unpredictable, impulsive, unable to make safe plan for self-care. Continues to have episodes of agitation and irritability. No side effects to the medication, no sedation, no nausea, no extrapyramidal symptoms. We will continue outpatient group therapy, milieu therapy, adjust the medication as needed. [facility]# [id number]
[2017-08-19] MEDS: Multivitamin Tab PO SCH (09:09)
[2017-08-19] MEDS: Lactobacillus Rhamnosus GG 15 Billion CFU CAP.SPRINK PO SCH (09:11)
--- NOTE | 2017-08-19 20:29 | Internal Medicine Prog Note ---
Internal Medicine Subjective - Subjective Patient is:: awake Per staff patient has:: tolerating meds Internal Medicine Objective - Results Recent Labs: Laboratory Last Values PT 10.3 SECONDS (9.5-11.5) 08/14/17 06:00 INR 0.99 (0.5-1.4) 08/14/17 06:00 PTT (Actin FS) 33.9 SECONDS (26.0-38.0) 08/14/17 06:00 - Physical Exam Vitals and I&O: Vital Signs Temp 98 F 08/19/17 20:17 Pulse 84 08/19/17 20:17 Resp 19 08/19/17 20:17 BP 112/88 08/19/17 20:17 Pulse Ox 97 08/19/17 20:17 Intake & Output 08/19/17 08/19/17 08/20/17 06:59 18:59 06:59 Intake Total 120 1200 240 Balance 120 1200 240 Intake: Oral 120 1200 240 Other: # Voids 1 3 1 # Bowel Movements 1 1 Active Medications: Current Medications Acetaminophen (Tylenol) 650 mg PO Q4H PRN PRN Reason: Pain (Mild) Stop: 10/11/17 18:43 Last Admin: 08/12/17 22:07 Dose: 650 mg Al Hydrox/Mg Hydrox/Simethicone (Maalox) 30 ml PO Q4HR PRN PRN Reason: GI DISTRESS Stop: 10/12/17 02:48 Atorvastatin Calcium (Lipitor) 10 mg PO HS [facility] PRN Reason: Protocol Stop: 10/12/17 20:59 Last Admin: 08/18/17 21:35 Dose: 10 mg Ciprofloxacin (Cipro) 250 mg PO 0900,2100 [facility] Stop: 10/11/17 20:59 Last Admin: 08/19/17 09:08 Dose: 250 mg Docusate Sodium (Colace) 100 mg PO DAILY [facility] Stop: 10/12/17 08:59 Last Admin: 08/19/17 09:09 Dose: 100 mg Donepezil HCl (Aricept) 10 mg PO DAILY [facility] Stop: 10/12/17 08:59 Last Admin: 08/19/17 09:09 Dose: 10 mg Escitalopram Oxalate (Lexapro) 10 mg PO HS [facility] PRN Reason: Protocol Stop: 10/13/17 06:18 Last Admin: 08/18/17 21:35 Dose: 10 mg Folic Acid (Folate) 1 mg PO DAILY [facility] Stop: 10/12/17 08:59 Last Admin: 08/19/17 09:10 Dose: 1 mg Heparin Sodium (Porcine) (Heparin) 5,000 units SUBQ Q12HR [facility] Stop: 10/12/17 08:59 Last Admin: 08/19/17 09:06 Dose: 5,000 units Isosorbide Dinitrate (Isordil) 5 mg PO TID [facility] Stop: 10/11/17 20:59 Last Admin: 08/19/17 15:37 Dose: 5 mg Lactobacillus Rhamnosus (Culturelle 15b) 1 each PO DAILY [facility] Stop: 10/16/17 08:59 Last Admin: 08/19/17 09:11 Dose: 1 each Memantine (Namenda) 10 mg PO BID [facility] Stop: 10/12/17 08:59 Last Admin: 08/19/17 17:23 Dose: 10 mg Miscellaneous (Probiotic Screen) 1 ea [facility] PRN PRN PRN Reason: PROTOCOL Stop: 10/15/17 11:22 Multivitamins/Vitamin C (Theragran) 1 tab PO DAILY [facility] Stop: 10/12/17 08:59 Last Admin: 08/19/17 09:09 Dose: 1 tab Nitroglycerin (Nitrostat) 0.4 mg SL Q5MIN PRN PRN Reason: Chest Pain Stop: 10/12/17 02:48 General: alert HEENT: NC/AT, PERRLA Neck: Supple Nutritional Asmnt/Malnutr-PDOC - Dietary Evaluation Malnutrition Findings (Please click <Entered> for more info): Nutritional Asmnt/Malnutrition Start: 08/18/17 10: 00 Text: Status: Complete Freq: Document 08/18/17 10:00 MIRNA (Rec: 08/18/17 10:27 [facility] Nutritional Asmnt/Malnutrition Patient General Information Nutritional Screening Moderate Risk Diagnosis Depression, Dementia, Psychosis Pertinent Medical Hx/Surgical Hx HTN, CAD, Hyperlipidemia, OA Subjective Information Omani speaking. Swallow evaluation completed by speech therapist on 08/12 - recommended pureed texture with NTL, 100% feeding assistance, and aspiration precautions Current Diet Order/ Nutrition Support Pureed (S/P Swallowing Eval - [place] Thickened Liquid) Patient / S.O Not Indicated Pertinent Medications Maalox, lipitor, Colace, Folate, Theragran Pertinent Labs No labs this visit Nutritional Hx/Data Height 1.47 m Height (Calculated Centimeters) 147.3 Current Weight (lbs) 73.936 kg Weight (Calculated Kilograms) 73.9 Weight (Calculated Grams) 45640.6 [place] Body Weight 95 % [place] Body Weight 171 Body Mass Index (BMI) 34.0 Recent Weight Change No Weight Status Obese GI Symptoms GI Symptoms None Last BM 08/17 x 1 Difficult in: Chewing Swallowing Food Allergies No Cultural/Ethnic/Uatsdin Belief none indicated Skin Integrity/Comment: Andi 17, Intact Current %PO Fair (50-74%) Estimated Nutritional Goals BEE in Kcals: Adj wt of IBW Calories/Kcals/Kg Adj wt 112lb/51kg (25-30 kcal/ kg) Kcals Calculated ~2009-0103 kcal/day Protein: Adj wt of IBW Protein g/k-1.2 gm/kg Protein Calculated ~50-60 gm/day Fluid: ml ~9328-7146 ml/day (1 ml/kcal) Nutritional Problem 1. Problem Problem Inadequate oral intake related to Etiology possible poor appetite Signs/Symptoms: aeb oral intake 25-75% of meals (Average intake of 52% of meals) Intervention/Recommendation Comments 1. Continue Pureed diet with nectar thickened liquids as tolerated by patient and suggested by Speech therapist. 2. RN to provide feeding assistance and encourage oral intake. Patient's tray includes Health shake for extra kcal. If oral intake remains inadequate, may add Boost between meals for added protein and calories. Expected Outcomes/Goals Expected Outcomes/Goals Oral intake to meet >75% of meals, nutrition related labs normal, weight stable or trends toward ideal body weight, skin integrity remains intact. F/U LR 08/25
[2017-08-19] MEDS: Atorvastatin Calcium 10 MG TAB PO SCH (21:26)
--- NOTE | 2017-08-19 23:55 | Progress Notes ---
DATE: 08/19/[address] Gaytan. SUBJECTIVE: Case discussed with staff of patient's, reviewed records. The patient continues to be confused, unpredictable, impulsive, staying in bed. Unable to participate in meaningful conversation or make safe plan for self-care. Continues to have episodes where she is paranoid. Continues to have episodes of irritability, at times responding to internal stimuli. No side effects of the medication, no sedation, no nausea, no extrapyramidal symptoms. PLAN: We will continue to work with the patient in group therapy, milieu therapy and adjust the medication as needed. JOB# [id number]
[2017-08-20] MEDS: Lactobacillus Rhamnosus GG 15 Billion CFU CAP.SPRINK PO SCH (08:40)
[2017-08-20] MEDS: Multivitamin Tab PO SCH (08:42)
--- NOTE | 2017-08-20 18:28 | Progress Notes ---
DATE: 08/20/2017 Case was discussed with staff of the patient, reviewed records. The patient continues to be internally preoccupied, isolating herself, does not participate in meaningful conversation. She is demented, confused, very poor insight. No side effects of the medication, no sedation, no nausea and we will continue to work with the patient in group therapy, milieu therapy, and adjust medications as needed. JOB# [id number]
--- NOTE | 2017-08-20 20:13 | Internal Medicine Prog Note ---
Internal Medicine Subjective - Subjective Service Date: 08/20/17 Patient is:: awake Per staff patient has:: tolerating meds Internal Medicine Objective - Results Recent Labs: Laboratory Last Values PT 10.3 SECONDS (9.5-11.5) 08/14/17 06:00 INR 0.99 (0.5-1.4) 08/14/17 06:00 PTT (Actin FS) 33.9 SECONDS (26.0-38.0) 08/14/17 06:00 - Physical Exam Vitals and I&O: Vital Signs Temp 98.4 F 08/20/17 15:34 Pulse 67 08/20/17 15:34 Resp 18 08/20/17 15:34 BP 106/45 08/20/17 15:34 Pulse Ox 96 08/20/17 15:34 Intake & Output 08/20/17 08/20/17 08/21/17 06:59 18:59 06:59 Intake Total 300 900 Balance 300 900 Intake: Oral 300 900 Other: # Voids 2 3 # Bowel Movements 0 Active Medications: Current Medications Acetaminophen (Tylenol) 650 mg PO Q4H PRN PRN Reason: Pain (Mild) Stop: 10/11/17 18:43 Last Admin: 08/12/17 22:07 Dose: 650 mg Al Hydrox/Mg Hydrox/Simethicone (Maalox) 30 ml PO Q4HR PRN PRN Reason: GI DISTRESS Stop: 10/12/17 02:48 Atorvastatin Calcium (Lipitor) 10 mg PO HS [facility] PRN Reason: Protocol Stop: 10/12/17 20:59 Last Admin: 08/19/17 21:26 Dose: 10 mg Docusate Sodium (Colace) 100 mg PO DAILY [facility] Stop: 10/12/17 08:59 Last Admin: 08/20/17 08:40 Dose: 100 mg Donepezil HCl (Aricept) 10 mg PO DAILY [facility] Stop: 10/12/17 08:59 Last Admin: 08/20/17 08:43 Dose: 10 mg Escitalopram Oxalate (Lexapro) 10 mg PO HS [facility] PRN Reason: Protocol Stop: 10/13/17 06:18 Last Admin: 08/19/17 21:27 Dose: 10 mg Folic Acid (Folate) 1 mg PO DAILY [facility] Stop: 10/12/17 08:59 Last Admin: 08/20/17 08:43 Dose: 1 mg Heparin Sodium (Porcine) (Heparin) 5,000 units SUBQ Q12HR [facility] Stop: 10/12/17 08:59 Last Admin: 08/20/17 08:45 Dose: 5,000 units Isosorbide Dinitrate (Isordil) 5 mg PO TID [facility] Stop: 10/11/17 20:59 Last Admin: 08/20/17 08:40 Dose: 5 mg Lactobacillus Rhamnosus (Culturelle 15b) 1 each PO DAILY [facility] Stop: 10/16/17 08:59 Last Admin: 08/20/17 08:40 Dose: 1 each Memantine (Namenda) 10 mg PO BID [facility] Stop: 10/12/17 08:59 Last Admin: 08/20/17 16:53 Dose: 10 mg Miscellaneous (Probiotic Screen) 1 ea MC PRN PRN PRN Reason: PROTOCOL Stop: 10/15/17 11:22 Multivitamins/Vitamin C (Theragran) 1 tab PO DAILY [facility] Stop: 10/12/17 08:59 Last Admin: 08/20/17 08:42 Dose: 1 tab Nitroglycerin (Nitrostat) 0.4 mg SL Q5MIN PRN PRN Reason: Chest Pain Stop: 10/12/17 02:48 General: alert HEENT: NC/AT, PERRLA Neck: Supple Nutritional Asmnt/Malnutr-PDOC - Dietary Evaluation Malnutrition Findings (Please click <Entered> for more info): Nutritional Asmnt/Malnutrition Start: 08/18/17 10: 00 Text: Status: Complete Freq: Document 08/18/17 10:00 MIRNA (Rec: 08/18/17 10:27 [facility] Nutritional Asmnt/Malnutrition Patient General Information Nutritional Screening Moderate Risk Diagnosis Depression, Dementia, Psychosis Pertinent Medical Hx/Surgical Hx HTN, CAD, Hyperlipidemia, OA Subjective Information Filipino speaking. Swallow evaluation completed by speech therapist on 08/12 - recommended pureed texture with NTL, 100% feeding assistance, and aspiration precautions Current Diet Order/ Nutrition Support Pureed (S/P Swallowing Eval - [place] Thickened Liquid) Patient / S.O Not Indicated Pertinent Medications Maalox, lipitor, Colace, Folate, Theragran Pertinent Labs No labs this visit Nutritional Hx/Data Height 1.47 m Height (Calculated Centimeters) 147.3 Current Weight (lbs) 73.936 kg Weight (Calculated Kilograms) 73.9 Weight (Calculated Grams) 52941.6 [place] Body Weight 95 % [place] Body Weight 171 Body Mass Index (BMI) 34.0 Recent Weight Change No Weight Status Obese GI Symptoms GI Symptoms None Last BM 08/17 x 1 Difficult in: Chewing Swallowing Food Allergies No Cultural/Ethnic/Shinto Belief none indicated Skin Integrity/Comment: Andi 17, Intact Current %PO Fair (50-74%) Estimated Nutritional Goals BEE in Kcals: Adj wt of IBW Calories/Kcals/Kg Adj wt 112lb/51kg (25-30 kcal/ kg) Kcals Calculated ~6913-7792 kcal/day Protein: Adj wt of IBW Protein g/k-1.2 gm/kg Protein Calculated ~50-60 gm/day Fluid: ml ~6646-2401 ml/day (1 ml/kcal) Nutritional Problem 1. Problem Problem Inadequate oral intake related to Etiology possible poor appetite Signs/Symptoms: aeb oral intake 25-75% of meals (Average intake of 52% of meals) Intervention/Recommendation Comments 1. Continue Pureed diet with nectar thickened liquids as tolerated by patient and suggested by Speech therapist. 2. RN to provide feeding assistance and encourage oral intake. Patient's tray includes Health shake for extra kcal. If oral intake remains inadequate, may add Boost between meals for added protein and calories. Expected Outcomes/Goals Expected Outcomes/Goals Oral intake to meet >75% of meals, nutrition related labs normal, weight stable or trends toward ideal body weight, skin integrity remains intact. F/U LR 08/25
[2017-08-20] MEDS: Atorvastatin Calcium 10 MG TAB PO SCH (21:07)
[2017-08-21] MEDS: Lactobacillus Rhamnosus GG 15 Billion CFU CAP.SPRINK PO SCH (08:09)
[2017-08-21] MEDS: Multivitamin Tab PO SCH (08:09)
--- NOTE | 2017-08-21 14:11 | General Progress Note ---
Subjective - Review of Systems Events since last encounter: awake alert in no distress Objective - Results Recent Labs: Laboratory Last Values PT 10.3 SECONDS (9.5-11.5) 08/14/17 06:00 INR 0.99 (0.5-1.4) 08/14/17 06:00 PTT (Actin FS) 33.9 SECONDS (26.0-38.0) 08/14/17 06:00 - Physical Exam Vitals and I&O: Vital Signs Temp 98 F 08/21/17 06:23 Pulse 65 08/21/17 08:08 Resp 18 08/21/17 06:23 BP 127/67 08/21/17 08:08 Pulse Ox 97 08/21/17 06:23 Intake & Output 08/20/17 08/21/17 08/21/17 18:59 06:59 18:59 Intake Total 900 120 Balance 900 120 Intake: Oral 900 120 Other: # Voids 3 3 Active Medications: Current Medications Acetaminophen (Tylenol) 650 mg PO Q4H PRN PRN Reason: Pain (Mild) Stop: 10/11/17 18:43 Last Admin: 08/12/17 22:07 Dose: 650 mg Al Hydrox/Mg Hydrox/Simethicone (Maalox) 30 ml PO Q4HR PRN PRN Reason: GI DISTRESS Stop: 10/12/17 02:48 Aripiprazole (Abilify) 5 mg PO HS [facility] PRN Reason: Protocol Stop: 10/20/17 20:59 Atorvastatin Calcium (Lipitor) 10 mg PO HS [facility] PRN Reason: Protocol Stop: 10/12/17 20:59 Last Admin: 08/20/17 21:07 Dose: 10 mg Docusate Sodium (Colace) 100 mg PO DAILY [facility] Stop: 10/12/17 08:59 Last Admin: 08/21/17 08:09 Dose: 100 mg Donepezil HCl (Aricept) 10 mg PO DAILY [facility] Stop: 10/12/17 08:59 Last Admin: 08/21/17 08:09 Dose: 10 mg Escitalopram Oxalate (Lexapro) 10 mg PO HS [facility] PRN Reason: Protocol Stop: 10/13/17 06:18 Last Admin: 08/20/17 21:07 Dose: 10 mg Folic Acid (Folate) 1 mg PO DAILY [facility] Stop: 10/12/17 08:59 Last Admin: 08/21/17 08:08 Dose: 1 mg Heparin Sodium (Porcine) (Heparin) 5,000 units SUBQ Q12HR [facility] Stop: 10/12/17 08:59 Last Admin: 08/21/17 08:09 Dose: 5,000 units Isosorbide Dinitrate (Isordil) 5 mg PO TID [facility] Stop: 10/11/17 20:59 Last Admin: 08/21/17 14:00 Dose: Not Given Lactobacillus Rhamnosus (Culturelle 15b) 1 each PO DAILY [facility] Stop: 10/16/17 08:59 Last Admin: 08/21/17 08:09 Dose: 1 each Memantine (Namenda) 10 mg PO BID [facility] Stop: 10/12/17 08:59 Last Admin: 08/21/17 08:09 Dose: 10 mg Miscellaneous (Probiotic Screen) 1 ea MC PRN PRN PRN Reason: PROTOCOL Stop: 10/15/17 11:22 Multivitamins/Vitamin C (Theragran) 1 tab PO DAILY [facility] Stop: 10/12/17 08:59 Last Admin: 08/21/17 08:09 Dose: 1 tab Nitroglycerin (Nitrostat) 0.4 mg SL Q5MIN PRN PRN Reason: Chest Pain Stop: 10/12/17 02:48 Nutritional Asmnt/Malnutr-PDOC - Dietary Evaluation Malnutrition Findings (Please click <Entered> for more info): Nutritional Asmnt/Malnutrition Start: 08/18/17 10: 00 Text: Status: Complete Freq: Document 08/18/17 10:00 MMABA (Rec: 08/18/17 10:27 [facility] Nutritional Asmnt/Malnutrition Patient General Information Nutritional Screening Moderate Risk Diagnosis Depression, Dementia, Psychosis Pertinent Medical Hx/Surgical Hx HTN, CAD, Hyperlipidemia, OA Subjective Information Indian speaking. Swallow evaluation completed by speech therapist on 08/12 - recommended pureed texture with NTL, 100% feeding assistance, and aspiration precautions Current Diet Order/ Nutrition Support Pureed (S/P Swallowing Eval - [place] Thickened Liquid) Patient / S.O Not Indicated Pertinent Medications Maalox, lipitor, Colace, Folate, Theragran Pertinent Labs No labs this visit Nutritional Hx/Data Height 1.47 m Height (Calculated Centimeters) 147.3 Current Weight (lbs) 73.936 kg Weight (Calculated Kilograms) 73.9 Weight (Calculated Grams) 77633.6 [place] Body Weight 95 % [place] Body Weight 171 Body Mass Index (BMI) 34.0 Recent Weight Change No Weight Status Obese GI Symptoms GI Symptoms None Last BM 08/17 x 1 Difficult in: Chewing Swallowing Food Allergies No Cultural/Ethnic/Religion Belief none indicated Skin Integrity/Comment: Andi 17, Intact Current %PO Fair (50-74%) Estimated Nutritional Goals BEE in Kcals: Adj wt of IBW Calories/Kcals/Kg Adj wt 112lb/51kg (25-30 kcal/ kg) Kcals Calculated ~9792-4398 kcal/day Protein: Adj wt of IBW Protein g/k-1.2 gm/kg Protein Calculated ~50-60 gm/day Fluid: ml ~7154-7945 ml/day (1 ml/kcal) Nutritional Problem 1. Problem Problem Inadequate oral intake related to Etiology possible poor appetite Signs/Symptoms: aeb oral intake 25-75% of meals (Average intake of 52% of meals) Intervention/Recommendation Comments 1. Continue Pureed diet with nectar thickened liquids as tolerated by patient and suggested by Speech therapist. 2. RN to provide feeding assistance and encourage oral intake. Patient's tray includes Health shake for extra kcal. If oral intake remains inadequate, may add Boost between meals for added protein and calories. Expected Outcomes/Goals Expected Outcomes/Goals Oral intake to meet >75% of meals, nutrition related labs normal, weight stable or trends toward ideal body weight, skin integrity remains intact. F/U LR 08/25
[2017-08-21] MEDS: Atorvastatin Calcium 10 MG TAB PO SCH (20:40)
--- NOTE | 2017-08-21 21:59 | Progress Notes ---
DATE: 08/21/2017 SUBJECTIVE: Chart reviewed and the patient interviewed. Also discussed the patient's condition with the staff and referring records and labs. The patient continued to be confused. She also is still laughing inappropriately. The patient also is talking to herself and she is having labile affect. She also has difficulty expressing her needs and her feelings. Also, during my interview, the patient is actively hallucinating and actively talking to herself and unable to answer questions coherently. ASSESSMENT: The patient is still psychotic and confused. TREATMENT PLAN: We will continue monitoring her behavior and her condition closely. Also, continue Lexapro and Namenda. We will add Abilify in a dose of 5 mg at bedtime. Also, continue to work on her irritability and agitation and ineffective coping. [facility]# [id number]
--- NOTE | 2017-08-22 06:07 | Progress Notes ---
DATE: 08/15/2017 Chart reviewed and the patient interviewed. Also discussed the patient's condition with the staff and reviewed records and labs. The patient continued to be isolative and is still withdrawn. The patient also is still forgetful and has difficulty expressing herself and feelings and she is still having ineffective coping and tends to be withdrawn and isolating herself. Otherwise, the patient is interacting slightly more. ASSESSMENT: The patient is still psychotic and needs close monitoring. TREATMENT PLAN: We will continue Lexapro 10 mg everyday and Namenda 10 mg twice a day. Also, continue to work on ineffective coping and follow up closely. JOB# [id number]
--- NOTE | 2017-08-22 06:23 | Progress Notes ---
DATE: 08/16/2017 Chart reviewed and the patient interviewed. Also discussed the patient's condition with the staff and reviewed records and labs. The patient continued to be isolative and withdrawn. She also is still in a depressed mood. Also, she is interacting minimally with peers and with others. The patient also is still forgetful and needs lots of redirections. Otherwise, the patient is compliant with taking her medications with no side effects of medications. ASSESSMENT: The patient is still depressed and shows ineffective coping. TREATMENT PLAN: Continue monitoring her behavior and her condition closely. Also, continue Lexapro in a dose of 10 mg everyday and Namenda 10 mg twice a day and will continue to follow up closely. [facility]# [id number]
[2017-08-22] MEDS: Multivitamin Tab PO SCH (09:08)
[2017-08-22] MEDS: Lactobacillus Rhamnosus GG 15 Billion CFU CAP.SPRINK PO SCH (09:09)
--- NOTE | 2017-08-22 09:43 | General Progress Note ---
Subjective - Review of Systems Events since last encounter: patient awake alert remains depressed Objective - Results Recent Labs: Laboratory Last Values PT 10.3 SECONDS (9.5-11.5) 08/14/17 06:00 INR 0.99 (0.5-1.4) 08/14/17 06:00 PTT (Actin FS) 33.9 SECONDS (26.0-38.0) 08/14/17 06:00 - Physical Exam Vitals and I&O: Vital Signs Temp 97 F 08/22/17 06:52 Pulse 67 08/22/17 09:08 Resp 18 08/22/17 06:52 BP 122/66 08/22/17 09:08 Pulse Ox 97 08/22/17 06:52 Intake & Output 08/21/17 08/22/17 08/22/17 18:59 06:59 18:59 Intake Total 900 120 Balance 900 120 Intake: Oral 900 120 Other: # Voids 3 3 Active Medications: Current Medications Acetaminophen (Tylenol) 650 mg PO Q4H PRN PRN Reason: Pain (Mild) Stop: 10/11/17 18:43 Last Admin: 08/12/17 22:07 Dose: 650 mg Al Hydrox/Mg Hydrox/Simethicone (Maalox) 30 ml PO Q4HR PRN PRN Reason: GI DISTRESS Stop: 10/12/17 02:48 Aripiprazole (Abilify) 5 mg PO HS [facility] PRN Reason: Protocol Stop: 10/20/17 20:59 Last Admin: 08/21/17 20:39 Dose: 5 mg Atorvastatin Calcium (Lipitor) 10 mg PO HS [facility] PRN Reason: Protocol Stop: 10/12/17 20:59 Last Admin: 08/21/17 20:40 Dose: 10 mg Docusate Sodium (Colace) 100 mg PO DAILY [facility] Stop: 10/12/17 08:59 Last Admin: 08/22/17 09:08 Dose: 100 mg Donepezil HCl (Aricept) 10 mg PO DAILY [facility] Stop: 10/12/17 08:59 Last Admin: 08/22/17 09:09 Dose: 10 mg Escitalopram Oxalate (Lexapro) 10 mg PO HS [facility] PRN Reason: Protocol Stop: 10/13/17 06:18 Last Admin: 08/21/17 20:40 Dose: 10 mg Folic Acid (Folate) 1 mg PO DAILY [facility] Stop: 10/12/17 08:59 Last Admin: 08/22/17 09:09 Dose: 1 mg Heparin Sodium (Porcine) (Heparin) 5,000 units SUBQ Q12HR [facility] Stop: 10/12/17 08:59 Last Admin: 08/22/17 09:10 Dose: 5,000 units Isosorbide Dinitrate (Isordil) 5 mg PO TID [facility] Stop: 10/11/17 20:59 Last Admin: 08/22/17 09:08 Dose: 5 mg Lactobacillus Rhamnosus (Culturelle 15b) 1 each PO DAILY [facility] Stop: 10/16/17 08:59 Last Admin: 08/22/17 09:09 Dose: 1 each Memantine (Namenda) 10 mg PO BID [facility] Stop: 10/12/17 08:59 Last Admin: 08/22/17 09:09 Dose: 10 mg Miscellaneous (Probiotic Screen) 1 ea MC PRN PRN PRN Reason: PROTOCOL Stop: 10/15/17 11:22 Multivitamins/Vitamin C (Theragran) 1 tab PO DAILY [facility] Stop: 10/12/17 08:59 Last Admin: 08/22/17 09:08 Dose: 1 tab Nitroglycerin (Nitrostat) 0.4 mg SL Q5MIN PRN PRN Reason: Chest Pain Stop: 10/12/17 02:48 Nutritional Asmnt/Malnutr-PDOC - Dietary Evaluation Malnutrition Findings (Please click <Entered> for more info): Nutritional Asmnt/Malnutrition Start: 08/18/17 10: 00 Text: Status: Complete Freq: Document 08/18/17 10:00 MIRNA (Rec: 08/18/17 10:27 [facility] Nutritional Asmnt/Malnutrition Patient General Information Nutritional Screening Moderate Risk Diagnosis Depression, Dementia, Psychosis Pertinent Medical Hx/Surgical Hx HTN, CAD, Hyperlipidemia, OA Subjective Information [place] speaking. Swallow evaluation completed by speech therapist on 08/12 - recommended pureed texture with NTL, 100% feeding assistance, and aspiration precautions Current Diet Order/ Nutrition Support Pureed (S/P Swallowing Eval - [place] Thickened Liquid) Patient / S.O Not Indicated Pertinent Medications Maalox, lipitor, Colace, Folate, Theragran Pertinent Labs No labs this visit Nutritional Hx/Data Height 1.47 m Height (Calculated Centimeters) 147.3 Current Weight (lbs) 73.936 kg Weight (Calculated Kilograms) 73.9 Weight (Calculated Grams) 52940.6 [place] Body Weight 95 % [place] Body Weight 171 Body Mass Index (BMI) 34.0 Recent Weight Change No Weight Status Obese GI Symptoms GI Symptoms None Last BM 08/17 x 1 Difficult in: Chewing Swallowing Food Allergies No Cultural/Ethnic/Sabianism Belief none indicated Skin Integrity/Comment: Andi 17, Intact Current %PO Fair (50-74%) Estimated Nutritional Goals BEE in Kcals: Adj wt of IBW Calories/Kcals/Kg Adj wt 112lb/51kg (25-30 kcal/ kg) Kcals Calculated ~1514-2943 kcal/day Protein: Adj wt of IBW Protein g/k-1.2 gm/kg Protein Calculated ~50-60 gm/day Fluid: ml ~5680-6036 ml/day (1 ml/kcal) Nutritional Problem 1. Problem Problem Inadequate oral intake related to Etiology possible poor appetite Signs/Symptoms: aeb oral intake 25-75% of meals (Average intake of 52% of meals) Intervention/Recommendation Comments 1. Continue Pureed diet with nectar thickened liquids as tolerated by patient and suggested by Speech therapist. 2. RN to provide feeding assistance and encourage oral intake. Patient's tray includes Health shake for extra kcal. If oral intake remains inadequate, may add Boost between meals for added protein and calories. Expected Outcomes/Goals Expected Outcomes/Goals Oral intake to meet >75% of meals, nutrition related labs normal, weight stable or trends toward ideal body weight, skin integrity remains intact. F/U LR 08/25
[2017-08-22] MEDS: Atorvastatin Calcium 10 MG TAB PO SCH (21:24)
--- NOTE | 2017-08-22 21:35 | Progress Notes ---
DATE: 08/15/2017 Chart reviewed and the patient interviewed. Also discussed the patient's condition with the staff and reviewed records and labs. The patient continued to be confused. The patient also is still actively responding to stimuli and she has been talking to herself and talking to imaginary objects. On the other hand, the patient's agitation is less than before. She also tends to isolate herself and interacting minimally with others. The patient is on Lexapro 5 mg every day with no side effects. ASSESSMENT: The patient is still psychotic and depressed. TREATMENT PLAN: We will increase Lexapro to 10 mg every bedtime. Also, continue to work on her ineffective coping and follow up closely. JOB# [id number]
[2017-08-23] MEDS: Lactobacillus Rhamnosus GG 15 Billion CFU CAP.SPRINK PO SCH (08:52)
[2017-08-23] MEDS: Multivitamin Tab PO SCH (08:54)
--- NOTE | 2017-08-23 09:36 | Progress Notes ---
DATE: Chart reviewed and the patient interviewed. Also discussed the patient's condition with the staff and reviewed records and labs. She is still in a confused and elated mood. The patient has continued talking to herself and is laughing inappropriately. She also still needs lots of redirections because of her confusion. She also is still unable to provide any safe plan for self-care. The patient also has episodes of agitation and irritability, but seems to be less than before and is slightly easier to redirect her. She also wants to be left alone and seems to be withdrawn most of the time. ASSESSMENT: The patient is still depressed and withdrawn. TREATMENT PLAN: Continue to monitor her behavior and her condition closely. Also, Abilify was added in a dose of 5 mg at bedtime. We will continue same dose and will continue to follow up closely. JOB# [id number]
[2017-08-23] MEDS: Atorvastatin Calcium 10 MG TAB PO SCH (21:06)
[2017-08-24] MEDS: Lactobacillus Rhamnosus GG 15 Billion CFU CAP.SPRINK PO SCH (10:00)
[2017-08-24] MEDS: Multivitamin Tab PO SCH (10:43)
[2017-08-24] MEDS: Atorvastatin Calcium 10 MG TAB PO SCH (21:17)
--- NOTE | 2017-08-24 23:21 | Progress Notes ---
DATE: 08/24/2017 SUBJECTIVE: I saw this patient previously here for aggressive behaviors, impulsive, advanced dementia, mostly labs. On [id number], the patient not talking, just laughing. She remains withdrawn, isolative, ongoing behavioral disturbances. Dr. Gaytan seeing the patient over the past few days, noting that she still mumbling to self, appearing depressed, withdrawn, irritable. Medications were noted including dosages. The patient needing some prompting to eat. 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 ASSESSMENT: The patient asymptomatic, depressed, withdrawn, some behavioral disturbances, very confused. PLAN: We will continue to monitor and adjust and titrate medications. JOB# [id number]
--- NOTE | 2017-08-25 00:25 | Progress Notes ---
DATE: 08/24/2017 SUBJECTIVE: The patient was seen in her room, lying in the bed. The patient appears to be withdrawn and depressed. Otherwise, the patient appears to be in no acute distress. OBJECTIVE: VITAL SIGNS: Temperature 97.3, heart rate of 69, blood pressure 115/70, respirations 20, and 97% on room air. HEENT: Head is atraumatic and normocephalic. Eyes: Bilateral conjunctivae are clear. Bilateral pupils equal, round, and reactive. NECK: Supple. No JVD. CARDIOVASCULAR: S1 and S2, without murmur. PULMONARY: Clear to auscultation. GASTROINTESTINAL: Soft and nontender without guarding. Positive bowel sounds. MUSCULOSKELETAL: No clubbing. No cyanosis noted. ASSESSMENT: 1. Dementia. 2. Hypertension. 3. Osteoarthritis. 4. Anemia. 5. Unsteady gait. PLAN: We will keep the patient inpatient in Psychiatric Unit. We will follow up with the psychiatrist to monitor the patient's condition and behavior. Treatment plans were discussed with the patient's nurse. Treatment plans were discussed with Dr. Hobbs. JOB# [id number]
--- NOTE | 2017-08-25 08:13 | Progress Notes ---
DATE: Chart reviewed and the patient interviewed. Also discussed the patient's condition with the staff and reviewed records and labs. The patient is still actively hallucinating and responding to stimuli. She is laughing for no reason and she is constantly talking to herself. The patient also is still having mood swings. The patient also seems to be disoriented to the situation and place and person, but she is only oriented to her name. She also still tends to isolate herself and stay by herself in her room most of the time. She denies any side effects of medications. ASSESSMENT: The patient is still psychotic. TREATMENT PLAN: Continue Lexapro 10 mg everyday and we will increase Abilify to 10 mg every day. Also, continue to monitor behavior and follow up closely. JOB# [id number]
--- NOTE | 2017-08-25 08:41 | General Progress Note ---
Subjective - Review of Systems Events since last encounter: patient awake still the same psychotic Objective - Results Recent Labs: Laboratory Last Values PT 10.3 SECONDS (9.5-11.5) 08/14/17 06:00 INR 0.99 (0.5-1.4) 08/14/17 06:00 PTT (Actin FS) 33.9 SECONDS (26.0-38.0) 08/14/17 06:00 - Physical Exam Vitals and I&O: Vital Signs Temp 98.3 F 08/25/17 06:49 Pulse 62 08/25/17 06:49 Resp 18 08/25/17 06:49 BP 130/76 08/25/17 06:49 Pulse Ox 97 08/25/17 06:49 Intake & Output 08/24/17 08/25/17 08/25/17 18:59 06:59 18:59 Intake Total 960 120 Balance 960 120 Intake: Oral 960 120 Other: # Voids 3 3 # Bowel Movements 0 Active Medications: Current Medications Acetaminophen (Tylenol) 650 mg PO Q4H PRN PRN Reason: Pain (Mild) Stop: 10/11/17 18:43 Last Admin: 08/12/17 22:07 Dose: 650 mg Al Hydrox/Mg Hydrox/Simethicone (Maalox) 30 ml PO Q4HR PRN PRN Reason: GI DISTRESS Stop: 10/12/17 02:48 Aripiprazole (Abilify) 10 mg PO HS CHARISSA PRN Reason: Protocol Stop: 10/22/17 06:30 Last Admin: 08/24/17 21:18 Dose: 10 mg Atorvastatin Calcium (Lipitor) 10 mg PO HS CHARISSA PRN Reason: Protocol Stop: 10/12/17 20:59 Last Admin: 08/24/17 21:17 Dose: 10 mg Docusate Sodium (Colace) 100 mg PO DAILY CHARISSA Stop: 10/12/17 08:59 Last Admin: 08/24/17 10:00 Dose: Not Given Donepezil HCl (Aricept) 10 mg PO DAILY CHARISSA Stop: 10/12/17 08:59 Last Admin: 08/24/17 10:00 Dose: Not Given Escitalopram Oxalate (Lexapro) 10 mg PO HS CHARISSA PRN Reason: Protocol Stop: 10/13/17 06:18 Last Admin: 08/24/17 21:18 Dose: 10 mg Folic Acid (Folate) 1 mg PO DAILY [facility] Stop: 10/12/17 08:59 Last Admin: 08/24/17 10:00 Dose: Not Given Heparin Sodium (Porcine) (Heparin) 5,000 units SUBQ Q12HR CHARISSA Stop: 10/12/17 08:59 Last Admin: 08/24/17 21:30 Dose: 5,000 units Isosorbide Dinitrate (Isordil) 5 mg PO TID CHARISSA Stop: 10/11/17 20:59 Last Admin: 08/24/17 21:15 Dose: 5 mg Lactobacillus Rhamnosus (Culturelle 15b) 1 each PO DAILY [facility] Stop: 10/16/17 08:59 Last Admin: 08/24/17 10:00 Dose: Not Given Memantine (Namenda) 10 mg PO BID [facility] Stop: 10/12/17 08:59 Last Admin: 08/24/17 16:29 Dose: Not Given Miscellaneous (Probiotic Screen) 1 ea MC PRN PRN PRN Reason: PROTOCOL Stop: 10/15/17 11:22 Multivitamins/Vitamin C (Theragran) 1 tab PO DAILY [facility] Stop: 10/12/17 08:59 Last Admin: 08/24/17 10:43 Dose: Not Given Nitroglycerin (Nitrostat) 0.4 mg SL Q5MIN PRN PRN Reason: Chest Pain Stop: 10/12/17 02:48 Nutritional Asmnt/Malnutr-PDOC - Dietary Evaluation Malnutrition Findings (Please click <Entered> for more info): Nutritional Asmnt/Malnutrition Start: 08/18/17 10: 00 Text: Status: Complete Freq: Document 08/18/17 10:00 MIRNA (Rec: 08/18/17 10:27 MIRNA [place] [email or web address]) Nutritional Asmnt/Malnutrition Patient General Information Nutritional Screening Moderate Risk Diagnosis Depression, Dementia, Psychosis Pertinent Medical Hx/Surgical Hx HTN, CAD, Hyperlipidemia, OA Subjective Information Malay speaking. Swallow evaluation completed by speech therapist on 08/12 - recommended pureed texture with NTL, 100% feeding assistance, and aspiration precautions Current Diet Order/ Nutrition Support Pureed (S/P Swallowing Eval - [place] Thickened Liquid) Patient / S.O Not Indicated Pertinent Medications Maalox, lipitor, Colace, Folate, Theragran Pertinent Labs No labs this visit Nutritional Hx/Data Height 1.47 m Height (Calculated Centimeters) 147.3 Current Weight (lbs) 73.936 kg Weight (Calculated Kilograms) 73.9 Weight (Calculated Grams) 65703.6 [place] Body Weight 95 % [place] Body Weight 171 Body Mass Index (BMI) 34.0 Recent Weight Change No Weight Status Obese GI Symptoms GI Symptoms None Last BM 08/17 x 1 Difficult in: Chewing Swallowing Food Allergies No Cultural/Ethnic/Gnosticism Belief none indicated Skin Integrity/Comment: Andi 17, Intact Current %PO Fair (50-74%) Estimated Nutritional Goals BEE in Kcals: Adj wt of IBW Calories/Kcals/Kg Adj wt 112lb/51kg (25-30 kcal/ kg) Kcals Calculated ~9880-4929 kcal/day Protein: Adj wt of IBW Protein g/k-1.2 gm/kg Protein Calculated ~50-60 gm/day Fluid: ml ~0388-7065 ml/day (1 ml/kcal) Nutritional Problem 1. Problem Problem Inadequate oral intake related to Etiology possible poor appetite Signs/Symptoms: aeb oral intake 25-75% of meals (Average intake of 52% of meals) Intervention/Recommendation Comments 1. Continue Pureed diet with nectar thickened liquids as tolerated by patient and suggested by Speech therapist. 2. RN to provide feeding assistance and encourage oral intake. Patient's tray includes Health shake for extra kcal. If oral intake remains inadequate, may add Boost between meals for added protein and calories. Expected Outcomes/Goals Expected Outcomes/Goals Oral intake to meet >75% of meals, nutrition related labs normal, weight stable or trends toward ideal body weight, skin integrity remains intact. F/U LR 08/25
[2017-08-25] MEDS: Lactobacillus Rhamnosus GG 15 Billion CFU CAP.SPRINK PO SCH (10:37)
[2017-08-25] MEDS: Multivitamin Tab PO SCH (10:37)
[2017-08-25] MEDS: Atorvastatin Calcium 10 MG TAB PO SCH (21:26)
--- NOTE | 2017-08-25 23:18 | Progress Notes ---
DATE: 08/25/2017 The patient with advanced dementia, history of aggressive behaviors. Still laughing to all questions. Very poorly oriented. Does not know where she is. Does not know what is going on. Highly impoverished. 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 ASSESSMENT: The patient remains symptomatic, still bizarre, disoriented, concerns for unruliness. PLAN: We will continue to monitor and titrate medications. Consider Nuedexta. JOB# [id number]
[2017-08-26] MEDS: Multivitamin Tab PO SCH (09:30)
[2017-08-26] MEDS: Lactobacillus Rhamnosus GG 15 Billion CFU CAP.SPRINK PO SCH (09:30)
--- NOTE | 2017-08-26 14:11 | General Progress Note ---
Subjective - Review of Systems Events since last encounter: in no distress Objective - Results Recent Labs: Laboratory Last Values PT 10.3 SECONDS (9.5-11.5) 08/14/17 06:00 INR 0.99 (0.5-1.4) 08/14/17 06:00 PTT (Actin FS) 33.9 SECONDS (26.0-38.0) 08/14/17 06:00 - Physical Exam Vitals and I&O: Vital Signs Temp 97.1 F 08/26/17 05:48 Pulse 65 08/26/17 09:30 Resp 18 08/26/17 05:48 BP 154/68 08/26/17 09:30 Pulse Ox 97 08/26/17 05:48 Intake & Output 08/25/17 08/26/17 08/26/17 18:59 06:59 18:59 Intake Total 900 120 Balance 900 120 Intake: Oral 900 120 Other: # Voids 3 2 # Bowel Movements 1 Active Medications: Current Medications Acetaminophen (Tylenol) 650 mg PO Q4H PRN PRN Reason: Pain (Mild) Stop: 10/11/17 18:43 Last Admin: 08/12/17 22:07 Dose: 650 mg Al Hydrox/Mg Hydrox/Simethicone (Maalox) 30 ml PO Q4HR PRN PRN Reason: GI DISTRESS Stop: 10/12/17 02:48 Aripiprazole (Abilify) 10 mg PO HS CHARISSA PRN Reason: Protocol Stop: 10/22/17 06:30 Last Admin: 08/25/17 21:24 Dose: 10 mg Atorvastatin Calcium (Lipitor) 10 mg PO HS CHARISSA PRN Reason: Protocol Stop: 10/12/17 20:59 Last Admin: 08/25/17 21:26 Dose: 10 mg Docusate Sodium (Colace) 100 mg PO DAILY CHARISSA Stop: 10/12/17 08:59 Last Admin: 08/26/17 09:31 Dose: 100 mg Donepezil HCl (Aricept) 10 mg PO DAILY [facility]ISSA Stop: 10/12/17 08:59 Last Admin: 08/26/17 09:30 Dose: 10 mg Escitalopram Oxalate (Lexapro) 10 mg PO HS CHARISSA PRN Reason: Protocol Stop: 10/13/17 06:18 Last Admin: 08/25/17 21:26 Dose: 10 mg Folic Acid (Folate) 1 mg PO DAILY [facility] Stop: 10/12/17 08:59 Last Admin: 08/26/17 09:30 Dose: 1 mg Heparin Sodium (Porcine) (Heparin) 5,000 units SUBQ Q12HR [facility] Stop: 10/12/17 08:59 Last Admin: 08/26/17 09:30 Dose: 5,000 units Isosorbide Dinitrate (Isordil) 5 mg PO TID [facility] Stop: 10/11/17 20:59 Last Admin: 08/26/17 09:30 Dose: 5 mg Lactobacillus Rhamnosus (Culturelle 15b) 1 each PO DAILY CHARISSA Stop: 10/16/17 08:59 Last Admin: 08/26/17 09:30 Dose: 1 each Memantine (Namenda) 10 mg PO BID [facility] Stop: 10/12/17 08:59 Last Admin: 08/26/17 09:31 Dose: 10 mg Miscellaneous (Probiotic Screen) 1 ea MC PRN PRN PRN Reason: PROTOCOL Stop: 10/15/17 11:22 Multivitamins/Vitamin C (Theragran) 1 tab PO DAILY [facility]ISSA Stop: 10/12/17 08:59 Last Admin: 08/26/17 09:30 Dose: 1 tab Nitroglycerin (Nitrostat) 0.4 mg SL Q5MIN PRN PRN Reason: Chest Pain Stop: 10/12/17 02:48 Nutritional Asmnt/Malnutr-PDOC - Dietary Evaluation Malnutrition Findings (Please click <Entered> for more info): Nutritional Asmnt/Malnutrition Start: 08/18/17 10: 00 Text: Status: Complete Freq: Document 08/18/17 10:00 MIRNA (Rec: 08/18/17 10:27 [facility] Nutritional Asmnt/Malnutrition Patient General Information Nutritional Screening Moderate Risk Diagnosis Depression, Dementia, Psychosis Pertinent Medical Hx/Surgical Hx HTN, CAD, Hyperlipidemia, OA Subjective Information Slovak speaking. Swallow evaluation completed by speech therapist on 08/12 - recommended pureed texture with NTL, 100% feeding assistance, and aspiration precautions Current Diet Order/ Nutrition Support Pureed (S/P Swallowing Eval - [place] Thickened Liquid) Patient / S.O Not Indicated Pertinent Medications Maalox, lipitor, Colace, Folate, Theragran Pertinent Labs No labs this visit Nutritional Hx/Data Height 1.47 m Height (Calculated Centimeters) 147.3 Current Weight (lbs) 73.936 kg Weight (Calculated Kilograms) 73.9 Weight (Calculated Grams) 73265.6 [place] Body Weight 95 % [place] Body Weight 171 Body Mass Index (BMI) 34.0 Recent Weight Change No Weight Status Obese GI Symptoms GI Symptoms None Last BM 08/17 x 1 Difficult in: Chewing Swallowing Food Allergies No Cultural/Ethnic/Congregation Belief none indicated Skin Integrity/Comment: Andi 17, Intact Current %PO Fair (50-74%) Estimated Nutritional Goals BEE in Kcals: Adj wt of IBW Calories/Kcals/Kg Adj wt 112lb/51kg (25-30 kcal/ kg) Kcals Calculated ~3698-1024 kcal/day Protein: Adj wt of IBW Protein g/k-1.2 gm/kg Protein Calculated ~50-60 gm/day Fluid: ml ~6010-9402 ml/day (1 ml/kcal) Nutritional Problem 1. Problem Problem Inadequate oral intake related to Etiology possible poor appetite Signs/Symptoms: aeb oral intake 25-75% of meals (Average intake of 52% of meals) Intervention/Recommendation Comments 1. Continue Pureed diet with nectar thickened liquids as tolerated by patient and suggested by Speech therapist. 2. RN to provide feeding assistance and encourage oral intake. Patient's tray includes Health shake for extra kcal. If oral intake remains inadequate, may add Boost between meals for added protein and calories. Expected Outcomes/Goals Expected Outcomes/Goals Oral intake to meet >75% of meals, nutrition related labs normal, weight stable or trends toward ideal body weight, skin integrity remains intact. F/U LR 08/25
[2017-08-26] MEDS: Atorvastatin Calcium 10 MG TAB PO SCH (21:12)
[2017-08-27] MEDS: Multivitamin Tab PO SCH (09:15)
[2017-08-27] MEDS: Lactobacillus Rhamnosus GG 15 Billion CFU CAP.SPRINK PO SCH (09:16)
[2017-08-27] MEDS: Atorvastatin Calcium 10 MG TAB PO SCH (20:53)
--- NOTE | 2017-08-27 23:06 | Progress Notes ---
DATE: 08/26/2017 SUBJECTIVE: Chart reviewed and the patient interviewed. Also discussed the patient's condition with the staff and reviewed records and labs. The patient is still depressed. The patient is still isolative and withdrawn. Her interaction with others is minimum. The patient denies any intention to harm herself or others. She is still severely depressed and she still needs lots of redirections. Otherwise, the patient is compliant with taking her medications with no side effects of medications. ASSESSMENT: The patient is still depressed and needs close monitoring. TREATMENT PLAN: We will continue monitoring the patient's behavior and condition closely. Also, continue to work on her ineffective coping and adjusting psychotropic medications. JOB# [id number]
--- NOTE | 2017-08-27 23:17 | Progress Notes ---
DATE: SUBJECTIVE: Chart reviewed and the patient interviewed. Also, discussed the patient's condition with the staff and reviewed records and labs. The patient is still anxious and she is still depressed. The patient also is still isolative and is withdrawn and her interaction with others is minimum. The patient also denies any intention to harm herself or others, but she wants to be left alone and she still has difficulty with her mood. Otherwise, the patient is compliant with taking her medications with no side effect of medications. ASSESSMENT: The patient is still depressed. TREATMENT PLAN: Continue to work on her ineffective coping and continue to monitor her behavior closely. [facility]# [id number]
--- NOTE | 2017-08-28 08:57 | General Progress Note ---
Subjective - Review of Systems Events since last encounter: patient depressed withdrawn denies pain Objective - Results Recent Labs: Laboratory Last Values PT 10.3 SECONDS (9.5-11.5) 08/14/17 06:00 INR 0.99 (0.5-1.4) 08/14/17 06:00 PTT (Actin FS) 33.9 SECONDS (26.0-38.0) 08/14/17 06:00 - Physical Exam Vitals and I&O: Vital Signs Temp 97.5 F 08/28/17 06:44 Pulse 70 08/28/17 06:44 Resp 19 08/28/17 06:44 BP 127/41 08/28/17 06:44 Pulse Ox 96 08/28/17 06:44 Intake & Output 08/27/17 08/28/17 08/28/17 18:59 06:59 18:59 Intake Total 800 240 Balance 800 240 Intake: Oral 800 240 Other: # Voids 3 1 # Bowel Movements 0 Active Medications: Current Medications Acetaminophen (Tylenol) 650 mg PO Q4H PRN PRN Reason: Pain (Mild) Stop: 10/11/17 18:43 Last Admin: 08/12/17 22:07 Dose: 650 mg Al Hydrox/Mg Hydrox/Simethicone (Maalox) 30 ml PO Q4HR PRN PRN Reason: GI DISTRESS Stop: 10/12/17 02:48 Aripiprazole (Abilify) 10 mg PO HS CHARISSA PRN Reason: Protocol Stop: 10/22/17 06:30 Last Admin: 08/27/17 20:54 Dose: 10 mg Atorvastatin Calcium (Lipitor) 10 mg PO HS CHARISSA PRN Reason: Protocol Stop: 10/12/17 20:59 Last Admin: 08/27/17 20:53 Dose: 10 mg Docusate Sodium (Colace) 100 mg PO DAILY [facility] Stop: 10/12/17 08:59 Last Admin: 08/27/17 09:16 Dose: 100 mg Donepezil HCl (Aricept) 10 mg PO DAILY [facility] Stop: 10/12/17 08:59 Last Admin: 08/27/17 09:15 Dose: 10 mg Escitalopram Oxalate (Lexapro) 10 mg PO HS CHARISSA PRN Reason: Protocol Stop: 10/13/17 06:18 Last Admin: 04/24/18 20:53 Dose: 10 mg Folic Acid (Folate) 1 mg PO DAILY [facility] Stop: 10/12/17 08:59 Last Admin: 08/27/17 09:15 Dose: 1 mg Isosorbide Dinitrate (Isordil) 5 mg PO TID [facility]ISSA Stop: 10/11/17 20:59 Last Admin: 08/27/17 20:54 Dose: Not Given Lactobacillus Rhamnosus (Culturelle 15b) 1 each PO DAILY [facility] Stop: 10/16/17 08:59 Last Admin: 08/27/17 09:16 Dose: 1 each Memantine (Namenda) 10 mg PO BID [facility] Stop: 10/12/17 08:59 Last Admin: 08/27/17 17:06 Dose: 10 mg Miscellaneous (Probiotic Screen) 1 ea MC PRN PRN PRN Reason: PROTOCOL Stop: 10/15/17 11:22 Multivitamins/Vitamin C (Theragran) 1 tab PO DAILY [facility] Stop: 10/12/17 08:59 Last Admin: 08/27/17 09:15 Dose: 1 tab Nitroglycerin (Nitrostat) 0.4 mg SL Q5MIN PRN PRN Reason: Chest Pain Stop: 10/12/17 02:48 Nutritional Asmnt/Malnutr-PDOC - Dietary Evaluation Malnutrition Findings (Please click <Entered> for more info): Nutritional Asmnt/Malnutrition Start: 08/18/17 10: 00 Text: Status: Complete Freq: Document 08/18/17 10:00 MMABA (Rec: 08/18/17 10:27 MMABA [place]- FN) Nutritional Asmnt/Malnutrition Patient General Information Nutritional Screening Moderate Risk Diagnosis Depression, Dementia, Psychosis Pertinent Medical Hx/Surgical Hx HTN, CAD, Hyperlipidemia, OA Subjective Information Bahraini speaking. Swallow evaluation completed by speech therapist on 08/12 - recommended pureed texture with NTL, 100% feeding assistance, and aspiration precautions Current Diet Order/ Nutrition Support Pureed (S/P Swallowing Eval - [place] Thickened Liquid) Patient / S.O Not Indicated Pertinent Medications Maalox, lipitor, Colace, Folate, Theragran Pertinent Labs No labs this visit Nutritional Hx/Data Height 1.47 m Height (Calculated Centimeters) 147.3 Current Weight (lbs) 73.936 kg Weight (Calculated Kilograms) 73.9 Weight (Calculated Grams) 94478.6 [place] Body Weight 95 % [place] Body Weight 171 Body Mass Index (BMI) 34.0 Recent Weight Change No Weight Status Obese GI Symptoms GI Symptoms None Last BM 08/17 x 1 Difficult in: Chewing Swallowing Food Allergies No Cultural/Ethnic/Jainism Belief none indicated Skin Integrity/Comment: Andi Brown, Intact Current %PO Fair (50-74%) Estimated Nutritional Goals BEE in Kcals: Adj wt of IBW Calories/Kcals/Kg Adj wt 112lb/51kg (25-30 kcal/ kg) Kcals Calculated ~0190-4015 kcal/day Protein: Adj wt of IBW Protein g/k-1.2 gm/kg Protein Calculated ~50-60 gm/day Fluid: ml ~7914-6613 ml/day (1 ml/kcal) Nutritional Problem 1. Problem Problem Inadequate oral intake related to Etiology possible poor appetite Signs/Symptoms: aeb oral intake 25-75% of meals (Average intake of 52% of meals) Intervention/Recommendation Comments 1. Continue Pureed diet with nectar thickened liquids as tolerated by patient and suggested by Speech therapist. 2. RN to provide feeding assistance and encourage oral intake. Patient's tray includes Health shake for extra kcal. If oral intake remains inadequate, may add Boost between meals for added protein and calories. Expected Outcomes/Goals Expected Outcomes/Goals Oral intake to meet >75% of meals, nutrition related labs normal, weight stable or trends toward ideal body weight, skin integrity remains intact. F/U LR 08/25
[2017-08-28] MEDS: Multivitamin Tab PO SCH (09:30)
[2017-08-28] MEDS: Lactobacillus Rhamnosus GG 15 Billion CFU CAP.SPRINK PO SCH (09:32)
[2017-08-28] MEDS: Atorvastatin Calcium 10 MG TAB PO SCH (20:17)
--- NOTE | 2017-08-29 04:02 | Progress Notes ---
DATE: 08/28/2017 Chart reviewed and the patient interviewed. Also discussed the patient's condition with the staff and reviewed records and labs. The patient is still angry and in irritable mood and she is still at times has crying spells, but seems to be less than before. The patient also still has sad affect. She wants to be left alone, most probably because of language barrier. Otherwise, the patient is more compliant with taking her medications and not resisting care like before. ASSESSMENT: The patient showed some improvement and she seems to be less psychotic. TREATMENT PLAN: Continue to monitor her behavior and her condition closely. Also, continue current medications including Abilify, Namenda and Lexapro. Also, continue to work on discharge plans. JOB# [id number]
--- NOTE | 2017-08-29 08:32 | General Progress Note ---
Subjective - Review of Systems Events since last encounter: less psychotic Objective - Results Recent Labs: Laboratory Last Values PT 10.3 SECONDS (9.5-11.5) 08/14/17 06:00 INR 0.99 (0.5-1.4) 08/14/17 06:00 PTT (Actin FS) 33.9 SECONDS (26.0-38.0) 08/14/17 06:00 - Physical Exam Vitals and I&O: Vital Signs Temp 97.6 F 08/29/17 06:04 Pulse 68 08/29/17 06:04 Resp 18 08/29/17 06:04 BP 134/67 08/29/17 06:04 Pulse Ox 97 08/29/17 06:04 Intake & Output 08/28/17 08/29/17 08/29/17 18:59 06:59 18:59 Intake Total 800 120 Balance 800 120 Intake: Oral 800 120 Other: # Voids 2 3 Active Medications: Current Medications Acetaminophen (Tylenol) 650 mg PO Q4H PRN PRN Reason: Pain (Mild) Stop: 10/11/17 18:43 Last Admin: 08/12/17 22:07 Dose: 650 mg Al Hydrox/Mg Hydrox/Simethicone (Maalox) 30 ml PO Q4HR PRN PRN Reason: GI DISTRESS Stop: 10/12/17 02:48 Aripiprazole (Abilify) 10 mg PO HS CHARISSA PRN Reason: Protocol Stop: 10/22/17 06:30 Last Admin: 08/28/17 20:17 Dose: 10 mg Atorvastatin Calcium (Lipitor) 10 mg PO HS CHARISSA PRN Reason: Protocol Stop: 10/12/17 20:59 Last Admin: 08/28/17 20:17 Dose: 10 mg Docusate Sodium (Colace) 100 mg PO DAILY [facility] Stop: 10/12/17 08:59 Last Admin: 08/28/17 09:32 Dose: 100 mg Donepezil HCl (Aricept) 10 mg PO DAILY [facility] Stop: 10/12/17 08:59 Last Admin: 08/28/17 09:30 Dose: 10 mg Escitalopram Oxalate (Lexapro) 10 mg PO HS CHARISSA PRN Reason: Protocol Stop: 10/13/17 06:18 Last Admin: 08/28/17 20:17 Dose: 10 mg Folic Acid (Folate) 1 mg PO DAILY [facility] Stop: 10/12/17 08:59 Last Admin: 08/28/17 09:32 Dose: 1 mg Heparin Sodium (Porcine) (Heparin) 5,000 units SUBQ Q12HR [facility] Stop: 10/28/17 08:59 Isosorbide Dinitrate (Isordil) 5 mg PO TID [facility] Stop: 10/11/17 20:59 Last Admin: 08/28/17 20:18 Dose: 5 mg Lactobacillus Rhamnosus (Culturelle 15b) 1 each PO DAILY [facility] Stop: 10/16/17 08:59 Last Admin: 08/28/17 09:32 Dose: 1 each Memantine (Namenda) 10 mg PO BID [facility] Stop: 10/12/17 08:59 Last Admin: 08/28/17 16:44 Dose: 10 mg Miscellaneous (Probiotic Screen) 1 ea MC PRN PRN PRN Reason: PROTOCOL Stop: 10/15/17 11:22 Multivitamins/Vitamin C (Theragran) 1 tab PO DAILY [facility] Stop: 10/12/17 08:59 Last Admin: 08/28/17 09:30 Dose: 1 tab Nitroglycerin (Nitrostat) 0.4 mg SL Q5MIN PRN PRN Reason: Chest Pain Stop: 10/12/17 02:48 Nutritional Asmnt/Malnutr-PDOC - Dietary Evaluation Malnutrition Findings (Please click <Entered> for more info): Nutritional Asmnt/Malnutrition Start: 08/18/17 10: 00 Text: Status: Complete Freq: Document 08/18/17 10:00 MIRNA (Rec: 08/18/17 10:27 [facility] Nutritional Asmnt/Malnutrition Patient General Information Nutritional Screening Moderate Risk Diagnosis Depression, Dementia, Psychosis Pertinent Medical Hx/Surgical Hx HTN, CAD, Hyperlipidemia, OA Subjective Information Lithuanian speaking. Swallow evaluation completed by speech therapist on 08/12 - recommended pureed texture with NTL, 100% feeding assistance, and aspiration precautions Current Diet Order/ Nutrition Support Pureed (S/P Swallowing Eval - [facility] Thickened Liquid) Patient / S.O Not Indicated Pertinent Medications Maalox, lipitor, Colace, Folate, Theragran Pertinent Labs No labs this visit Nutritional Hx/Data Height 1.47 m Height (Calculated Centimeters) 147.3 Current Weight (lbs) 73.936 kg Weight (Calculated Kilograms) 73.9 Weight (Calculated Grams) 11469.6 [place] Body Weight 95 % [place] Body Weight 171 Body Mass Index (BMI) 34.0 Recent Weight Change No Weight Status Obese GI Symptoms GI Symptoms None Last BM 08/17 x 1 Difficult in: Chewing Swallowing Food Allergies No Cultural/Ethnic/Christianity Belief none indicated Skin Integrity/Comment: Andi 17, Intact Current %PO Fair (50-74%) Estimated Nutritional Goals BEE in Kcals: Adj wt of IBW Calories/Kcals/Kg Adj wt 112lb/51kg (25-30 kcal/ kg) Kcals Calculated ~6695-6160 kcal/day Protein: Adj wt of IBW Protein g/k-1.2 gm/kg Protein Calculated ~50-60 gm/day Fluid: ml ~6709-3283 ml/day (1 ml/kcal) Nutritional Problem 1. Problem Problem Inadequate oral intake related to Etiology possible poor appetite Signs/Symptoms: aeb oral intake 25-75% of meals (Average intake of 52% of meals) Intervention/Recommendation Comments 1. Continue Pureed diet with nectar thickened liquids as tolerated by patient and suggested by Speech therapist. 2. RN to provide feeding assistance and encourage oral intake. Patient's tray includes Health shake for extra kcal. If oral intake remains inadequate, may add Boost between meals for added protein and calories. Expected Outcomes/Goals Expected Outcomes/Goals Oral intake to meet >75% of meals, nutrition related labs normal, weight stable or trends toward ideal body weight, skin integrity remains intact. F/U LR 08/25
[2017-08-29] MEDS: Lactobacillus Rhamnosus GG 15 Billion CFU CAP.SPRINK PO SCH (08:55)
[2017-08-29] MEDS: Multivitamin Tab PO SCH (08:56)
--- NOTE | 2017-08-29 22:52 | Discharge Summary ---
DATE OF DISCHARGE: 08/29/2017 PATIENT'S AGE: 82. SEX: Female. PHYSICIAN: Dr. Gaytan. FINAL DIAGNOSIS/PRIMARY DIAGNOSIS: Unspecified psychosis. SECONDARY DIAGNOSIS: Dementia, moderate to severe. REASON FOR HOSPITALIZATION: The patient was admitted to the hospital because of increased agitation, irritability, and depression. HOSPITAL COURSE: The patient continued to be in irritable and angry mood. The patient also wants to be left alone and was withdrawn. She also was suspicious at times and easily agitated at times. The patient was given Abilify and the dose adjusted to 10 mg at bedtime and also Aricept 10 mg every day and Lexapro 10 mg at bedtime. Gradually, the patient's affect was brighter. The patient was less irritable and less agitated. Also, was interacting more. The patient was accepted back to [facility]. Physical exam showed no major medical problems while in the hospital. No major abnormal labs. AFTER DISCHARGE PLANS: The patient discharged from the hospital and went to [place] with plans to follow her up there. EXPECTED OUTCOME AFTER DISCHARGE: Fair if the patient continues to take her psychotropic medications. JOB# [id number]
== END 2017-08-29 12:15 | DRG 885 ==
LOC: GERO2 17:03 → GERO 08-14 13:42
PROVIDERS: ADMIT Psychiatry & Neurology Psychiatry; ATTEND Psychiatry & Neurology Psychiatry
DX: F29 Unspecified psychosis not due to a substance or known physiological condition (principal); F03.91 Unspecified dementia, unspecified severity, with behavioral disturbance; F39 Unspecified mood [affective] disorder; M19.90 Unspecified osteoarthritis, unspecified site; D64.9 Anemia, unspecified; I10 Essential (primary) hypertension; I25.10 Atherosclerotic heart disease of native coronary artery without angina pectoris; E78.5 Hyperlipidemia, unspecified
CPT/HCPCS: 36415-UA; 85610-TC; J1644; Z7610

== ENCOUNTER 2017-09-26 13:25 | Emergency (ER) | payer MEDICARE, MEDICAID ==
--- NOTE | 2017-09-26 14:15 | ED Physician Chart ---
ED Chief Complaint/HPI - Patient Information Date Seen:: 09/26/17 Time Seen:: 14:15 Chief Complaint:: Scalp laceration History of Present Illness:: 82 yo female was brought from [facility] to ER for evaluation of a left occipital laceration after fall a few hours ago. The patient had dementia and forgot she was unable to walk unassisted and she still attempted to walk. She then fell and hit her head on the corner of a door. Allergies:: Allergies Allergy/AdvReac Type Severity Reaction Status Date / Time aspirin Allergy Verified 06/28/16 16:02 Penicillins Allergy Verified 06/28/16 16:02 Vitals:: Vital Signs - 8 hr 09/26/17 13:33 Temp 97.7 F HR 72 RR 18 BP 117/59 O2 Sat % 100 ED Review of Systems - Review of Systems General/Constitutional: No fever, Weakness Skin: Skin lesions Head: No headache Eyes: No pain ENT: No earache Neck: No neck pain Cardio Vascular: No chest pain Pulmonary: No SOB GI: No nausea, No vomiting Musculoskeletal: No bone or joint pain Neurological: Weakness ED Past Medical History - Past Medical History Past Medical History: HTN, Other (Anemia, angina) Social History: Non Smoker, No Alcohol, No Drug Use Psychiatricy History: Bipolar, Dementia (Alzheimer's) Family Medical History - Family Member Mother History Unknown: Yes Ethnicity: Unknown Living Status: Unknown Hx Family Cancer: (Unknown) Hx Family Coronary Artery Disease: (Unknown) Hx Family Congestive Heart Failure: (Unknown) Hx Family Hypertension: (Unknown) Hx Family Stroke: (Unknown) Hx Family Diabetes: (Unknown) Hx Family Seizures: (Unknown) Hx Family Dementia: (Unknown) Hx Family AIDS: (Unknown) Hx Family HIV: No Hx Family COPD: (Unknown) Hx Family Hepatitis: (Unknown) Hx Family Psychiatric Problems: (Unknown) Hx Family Tuberculosis: (Unknown) ED Physical Exam - Physical Examination General/Constitutional: Awake Other Head comments:: Left occipital laceration 4cm in length, 0.5cm in depth, no active bleeding Skin: No rash ENMT: Nasal exam nl Neck: No nuchal rigidity Respiratory: No Wheeze/Rhonchi/Rales Cardio Vascular: RRR, No murmur, gallop, rubs, NL S1 S2 GI: No tenderness/rebounding/guarding Extremities: No edema Neuro/Psych: No focal deficits Other Neuro/Psych comments:: Oriented to self only ED Labs/Radiology/EKG Results - Lab Results Results: Laboratory Last Values WBC 7.0 Th/cmm (4.8-10.8) 09/26/17 14:48 RBC 4.22 Mil/cmm (3.80-5.20) 09/26/17 14:48 Hgb 13.3 gm/dL (12-16) 09/26/17 14:48 Hct 39.5 % (41.0-60) L 09/26/17 14:48 MCV 93.6 fl (81-100) 09/26/17 14:48 MCH 31.5 pg (27.0-31.0) H 09/26/17 14:48 MCHC Differential 33.7 pg (28.0-36.0) 09/26/17 14:48 RDW 12.2 % (11.5-20.0) 09/26/17 14:48 Plt Count 208 Th/cmm (150-400) 09/26/17 14:48 MPV 7.8 fl 09/26/17 14:48 Neutrophils % 72.5 % (40.0-80.0) 09/26/17 14:48 Lymphocytes % 22.6 % (20.0-50.0) 09/26/17 14:48 Monocytes % 2.7 % (2.0-10.0) 09/26/17 14:48 Eosinophils % 2.0 % (0.0-5.0) 09/26/17 14:48 Basophils % 0.2 % (0.0-2.0) 09/26/17 14:48 Sodium 141 mEq/L (136-145) 09/26/17 14:48 Potassium 4.0 mEq/L (3.5-5.1) 09/26/17 14:48 Chloride 107 mEq/L (98-107) 09/26/17 14:48 Carbon Dioxide 28.2 mEq/L (21.0-31.0) 09/26/17 14:48 Anion Gap 9.8 (7.0-16.0) 09/26/17 14:48 BUN 18 mg/dL (7-25) 09/26/17 14:48 Creatinine 1.0 mg/dL (0.6-1.2) 09/26/17 14:48 Est GFR ( Amer) TNP 09/26/17 14:48 Est GFR (Non-Af Amer) TNP 09/26/17 14:48 BUN/Creatinine Ratio 18.0 09/26/17 14:48 Glucose 110 mg/dL (70-105) H 09/26/17 14:48 Calcium 10.1 mg/dL (8.6-10.3) 09/26/17 14:48 Total Bilirubin 0.4 mg/dL (0.3-1.0) 09/26/17 14:48 AST 17 U/L (13-39) 09/26/17 14:48 ALT 10 U/L (7-52) 09/26/17 14:48 Alkaline Phosphatase 89 U/L (34-104) 09/26/17 14:48 Total Protein 6.6 gm/dL (6.0-8.3) 09/26/17 14:48 Albumin 4.0 gm/dL (3.7-5.3) 09/26/17 14:48 Globulin 2.6 gm/dL 09/26/17 14:48 Albumin/Globulin Ratio 1.5 (1.0-1.8) 09/26/17 14:48 - Radiology Results Results: CT head: no acute intracranial hemorrhage ED Assessment - Assessment General Assessment: Left occipital laceration Assessment/Comments:: CBC, CMP, UA Laceration repair Tdap Levofloxacin 750mg po x 1 Tylenol 650mg po x 1 D/c to SNF Levofloxacin 750mg po qd #6 days Parag to be removed after 7-10 days Location:: Left occipital Laceration Type:: Simple Wound Length: 4 cm Prep/Irrigation:: NS, hydrogen peroxide, NS and betadine Comments: After cleaning the adjacent field, 4 parag were placed. Patient tolerated the procedure without complication. ED Septic Shock - . Is Septic Shock (SBP<90, OR Lactate>4 mmol\L) present?: No - <6hrs of presentation: Vital Signs: Vital Signs - 8 hr 09/26/17 13:33 Temp 97.7 F HR 72 RR 18 BP 117/59 O2 Sat % 100 ED Reassessment (Disposition) - Reassessment Reassessment Condition:: Improved - Patient Disposition Discharge/Transfer:: Longterm Care - SNF ED Discharge Plan - Patient Disposition Admit/Discharge/Transfer: Discharge/Transfered to SNF Condition at Disposition: Stable Instructions: Laceration Care, Adult Additional Instructions: FOLLOW UP WITH PCP IN 10 DAYS FOR STAPLE REMOVAL, KEEP WOUND CLEAN AND DRY, CHANGE DRESSING NEEDED. ADMIN ABX ORDERED BY MD. ACTIVITY TOLERATED.
[2017-09-26 14:54] LABS: % BASOPHILS 0.2 % (0.0-2.0); % LYMPHOCYTES 22.6 % (20.0-50.0); % MONOCYTES 2.7 % (2.0-10.0); % NEUTROPHILS 72.5 % (40.0-80.0); EOSINOPHILE ABSOLUTE 0.1 Th/cmm (0.1-0.4); HEMATOCRIT 39.5 % (41.0-60); HEMOGLOBIN 13.3 gm/dL (12-16); LYMPHOCYTE ABSOLUTE 1.6 Th/cmm (1.5-3.0); MEAN CELL VOLUME 93.6 fl (81-100); MEAN CORPUSCULAR HEMOGLOBIN 31.5 pg (27.0-31.0); MEAN CORPUSCULAR HGB CONC 33.7 pg (28.0-36.0); MEAN PLATELET VOLUME 7.8 fl; MONOCYTE ABSOLUTE 0.2 Th/cmm (0.3-1.0); NEUTROPHILE ABSOLUTE 5.1 Th/cmm (1.8-8.0); PLATELET COUNT 208 Th/cmm (150-400); RED BLOOD COUNT 4.22 Mil/cmm (3.80-5.20); RED CELL DISTRIBUTION WIDTH 12.2 % (11.5-20.0)
--- NOTE | 2017-09-26 15:01 | Diagnostic Imaging Report ---
Head CT without intravenous contrast Indication: Trauma Comparison: 08/10/2017 Technique: Axial images were obtained from the vertex to the skull base without IV contrast. Coronal reconstructions were made. Total DLP: [id number], [id number] FINDINGS: Images of the brain obtained without contrast demonstrate no evidence of an acute hemorrhage. Atrophy is noted. Mild white matter disease is noted. The ventricles and basal cisterns are patent. No mass effect or midline shift. Atherosclerosis is noted. No evidence of a skull fracture or focal soft tissue swelling. There is mucosal thickening in the paranasal sinuses. IMPRESSION: No evidence of an acute intracranial hemorrhage. Atrophy. Mild supratentorial white matter disease which is nonspecific and may be due to chronic microvessel ischemia.
[2017-09-26] MEDS ORDERED: Bacitracin pkt 1 gm Pkt TP ONE (15:05)
[2017-09-26 15:09] LABS: ALB/GLOB RATIO 1.5 (1.0-1.8); ALKALINE PHOSPHATASE 89 U/L (34-104); ANION GAP 9.8 (7.0-16.0); BILIRUBIN,TOTAL 0.4 mg/dL (0.3-1.0); BUN - UREA NITROGEN 18 mg/dL (7-25); CALCIUM SERUM 10.1 mg/dL (8.6-10.3); CARBON DIOXIDE 28.2 mEq/L (21.0-31.0); CHLORIDE 107 mEq/L (98-107); GLUCOSE 110 mg/dL (70-105); SGOT 17 U/L (13-39); SGPT/ALT 10 U/L (7-52); SODIUM SERUM 141 mEq/L (136-145); TOTAL PROTEIN,SERUM 6.6 gm/dL (6.0-8.3)
[2017-09-26] MEDS: Bacitracin pkt 1 gm Pkt TP STA (15:15)
== END 2017-09-26 16:11 ==
LOC: ER 13:25
DX: S01.01XA Laceration without foreign body of scalp, initial encounter (principal); Z88.0 Allergy status to penicillin; Z88.5 Allergy status to narcotic agent; W19.XXXA Unspecified fall, initial encounter; Y93.89 Activity, other specified; Y92.89 Other specified places as the place of occurrence of the external cause; Y99.8 Other external cause status
CPT/HCPCS: 12002; 36415-UA; 70450-TC; 80053-TC; 85025-TC; Z7610